=== PATIENT | female | born 1995 | race African-American/Black ===

== ENCOUNTER 2016-09-23 13:37 | Inpatient (IN) | payer OTHER ==
[~2016-09-23] VITALS: Ht 162.6 cm; Wt 96.6 kg
[~2016-09-23 13:37] MED LIST: SERT50 PO; ZYPR10TA PO
[2016-09-23 13:39] VITALS: BP 140/94; PULSE 140; RESP 20; TEMP 97.7; O2SAT 100
--- NOTE | 2016-09-23 14:29 | PD ---
HPI Chief Complaint: GI Complaint Time Seen by Provider: 14:19 Travel History International Travel<30 days: No Contact w/Intl Traveler<30days: No Traveled to known affect area: No History of Present Illness HPI 20-year-old female with history of psychiatric issues according to patient's mother, presents to the ER today because patient's mother states that the patient has had some psychiatric medication changes and has been behaving abnormally at home, disoriented according to patient's mother, and she is worried about leaving the patient at home when she is not there. Patient does not have insight on this issue, states that she has had some episodes of vomiting today because she is in her menses. She states this is not unusual for her. She denies any abdominal pain or any other issues. She denies any suicidal or homicidal ideation. Modifying Factors: None Associated Signs & Symptoms: Abnormal behavior, vomiting Risk Factors: Psychiatric history PFSH Past Medical History Hx Anticoagulant Therapy: No Depression: Yes Cancer: No Cardiovascular Problems: No Chemotherapy: No Cerebrovascular Accident: No Diabetes: No Endocrine: No Genitourinary: No Immune Disorder: No Musculoskeletal: No Neurologic: No Psychiatric: Yes (ER IN [place] WITH PSYCHOSIS) Reproductive: No Respiratory: No LMP: 09/20/16 : 0 Para: 0 Miscarriage: 0 : 0 Social History Alcohol Use: No Tobacco Use: No Substance Use: No Allergies-Medications (Allergen,Severity, Reaction): Coded Allergies: No Known Allergies (Unverified , 09/23/16) Reported Meds & Prescriptions Reported Meds & Active Scripts Active Active Prescriptions or Reported Medications Unobtainable Review of Systems Except as stated in HPI: all other systems reviewed are Neg Physical Exam Narrative GENERAL: Well-nourished, well-developed young female patient in no acute distress. Awake, alert, oriented 3. Speaking with a flat affect. Appear to be responding to internal stimuli currently. SKIN: Warm and dry. HEAD: Normocephalic. EYES: No scleral icterus. No injection or drainage. NECK: Supple, trachea midline. CARDIOVASCULAR: Regular rate and rhythm without murmurs, gallops, or rubs. RESPIRATORY: Breath sounds equal bilaterally. No accessory muscle use. GASTROINTESTINAL: Abdomen soft, non-tender, nondistended. MUSCULOSKELETAL: No cyanosis, or edema. BACK: Nontender without obvious deformity. No CVA tenderness. Data Data Last Documented VS Vital Signs Date Time Temp Pulse Resp B/P Pulse Ox O2 Delivery O2 Flow Rate FiO2 09/23/16 15:55 16 09/23/16 15:19 105 09/23/16 13:39 97.7 140/94 100 Room Air Orders Complete Blood Count With Diff (09/23/16 14:19) Comprehensive Metabolic Panel (09/23/16 14:19) Drug Screen, Random Urine (09/23/16 14:19) Ed Urine Pregnancytest Poc (09/23/16 14:19) Alcohol (Ethanol) (09/23/16 14:19) Psych Screen (09/23/16 14:19) Diet Regular Basic (09/23/16 Dinner) Olanzapine Inj (Zyprexa Inj) (09/23/16 16:45) Diphenhydramine Inj (Benadryl Inj) (09/23/16 16:45) Lorazepam Inj (Ativan Inj) (09/23/16 17:00) Lorazepam Inj (Ativan Inj) (09/23/16 16:48) Diphenhydramine Inj (Benadryl Inj) (09/23/16 16:48) Olanzapine Inj (Zyprexa Inj) (09/23/16 16:48) Labs Laboratory Tests Test 09/23/16 09/23/16 14:25 14:45 White Blood Count 11.1 TH/MM3 Red Blood Count 5.02 MIL/MM3 Hemoglobin 14.0 GM/DL Hematocrit 42.7 % Mean Corpuscular Volume 85.0 FL Mean Corpuscular Hemoglobin 28.0 PG Mean Corpuscular Hemoglobin 32.9 % Concent Red Cell Distribution Width 12.9 % Platelet Count 370 TH/MM3 Mean Platelet Volume 8.0 FL Neutrophils (%) (Auto) 86.9 % Lymphocytes (%) (Auto) 8.1 % Monocytes (%) (Auto) 4.8 % Eosinophils (%) (Auto) 0.0 % Basophils (%) (Auto) 0.2 % Neutrophils # (Auto) 9.7 TH/MM3 Lymphocytes # (Auto) 0.9 TH/MM3 Monocytes # (Auto) 0.5 TH/MM3 Eosinophils # (Auto) 0.0 TH/MM3 Basophils # (Auto) 0.0 TH/MM3 CBC Comment DIFF FINAL Differential Comment Sodium Level 141 MEQ/L Potassium Level 4.0 MEQ/L Chloride Level 110 MEQ/L Carbon Dioxide Level 20.2 MEQ/L Anion Gap 11 MEQ/L Blood Urea Nitrogen 9 MG/DL Creatinine 1.05 MG/DL Estimat Glomerular Filtration 80 ML/MIN Rate Random Glucose 131 MG/DL Calcium Level 9.0 MG/DL Total Bilirubin 0.3 MG/DL Aspartate Amino Transf 26 U/L (AST/SGOT) Alanine Aminotransferase 26 U/L (ALT/SGPT) Alkaline Phosphatase 85 U/L Total Protein 8.7 GM/DL Albumin 4.6 GM/DL Ethyl Alcohol Level LESS THAN 3 MG/DL Urine Opiates Screen NEG Urine Barbiturates Screen NEG Urine Amphetamines Screen NEG Urine Benzodiazepines Screen NEG Urine Cocaine Screen NEG Urine Cannabinoids Screen NEG MDM Medical Decision Making Medical Screen Exam Complete: Yes Emergency Medical Condition: Yes Medical Record Reviewed: Yes Interpretation(s) Laboratory Tests Test 09/23/16 14:25 White Blood Count 11.1 TH/MM3 (4.0-11.0) Neutrophils (%) (Auto) 86.9 % (16.0-70.0) Lymphocytes (%) (Auto) 8.1 % (9.0-44.0) Neutrophils # (Auto) 9.7 TH/MM3 (1.8-7.7) Lymphocytes # (Auto) 0.9 TH/MM3 (1.0-4.8) Chloride Level 110 MEQ/L (98-107) Carbon Dioxide Level 20.2 MEQ/L (21.0-32.0) Creatinine 1.05 MG/DL (0.50-1.00) Estimat Glomerular Filtration 80 ML/MIN (>89) Rate Random Glucose 131 MG/DL (74-106) Total Protein 8.7 GM/DL (6.4-8.2) Differential Diagnosis Abnormal behavior, vomitingrule out metabolic issues versus dehydration versus acute intra-abdominal process, awaiting medical clearance for psychiatric evaluation Narrative Course Patient appears agitated, responding to internal stimuli, and was James acted in the ER. Planning to medically clear patient for further valuation by psych. Patient is not . Abdomen is benign and I do not suspect an acute intra-abdominal process. Lab work did not indicate any significant leukocytosis or metabolic issues. Patient has been medically cleared Diagnosis Primary Impression: Psychotic disorder Scripts Unable to Obtain Active Prescriptions or Reported Meds Disposition: 65 DISC TO PSYCH CARE FACILITY Condition: Stable [place]tharothai,Rewadee MD Sep 23, 2016 14:29
[2016-09-23 15:19] VITALS: PULSE 105
[2016-09-23 15:41] LABS: AUTOMATED NEUTROPHIL # 9.7 TH/MM3 (1.8-7.7); BASOPHIL % 0.2 % (0.0-2.0); HEMATOCRIT 42.7 % (35.0-46.0); HEMO FLAGS DIFF FINAL; LYMPH % 8.1 % (9.0-44.0); LYMPHOCYTE # 0.9 TH/MM3 (1.0-4.8); MEAN CORPUSCULAR HGB CONC 32.9 % (32.0-36.0); MONO % 4.8 % (0.0-8.0); NEUT % 86.9 % (16.0-70.0); PLATELET COUNT 370 TH/MM3 (150-450); RED BLOOD COUNT 5.02 MIL/MM3 (4.00-5.30); RED CELL DISTRIBUTION WIDTH 12.9 % (11.6-17.2); WHITE BLOOD COUNT 11.1 TH/MM3 (4.0-11.0)
[2016-09-23 15:58] LABS: AMPHETAMINE, URINE NEG (NEG); BARBITURATES, URINE NEG (NEG); COCAINE, URINE NEG (NEG)
[2016-09-23 16:04] LABS: ALKALINE PHOSPHATASE 85 U/L (45-117); TOTAL BILIRUBIN ADULT 0.3 MG/DL (0.2-1.0)
[2016-09-23 16:24] LABS: ALT (GPT) 26 U/L (10-53); ANION GAP 11 MEQ/L (5-15); AST (GOT) 26 U/L (15-37); BICARBONATE 20.2 MEQ/L (21.0-32.0); BLOOD UREA NITROGEN 9 MG/DL (7-18); CHLORIDE 110 MEQ/L (98-107); GLOMERULAR FILTRATION RATE 80 ML/MIN (>89); SODIUM (NA) 141 MEQ/L (136-145)
[2016-09-23] MEDS ORDERED: OLANZapine IM 10 MG VIAL IM ONE ×2 (16:45→16:48)
[2016-09-23] MEDS ORDERED: diphenhydrAMINE HCL 50 MG/ML VIAL ONE (16:48)
[2016-09-23] MEDS ORDERED: LORazepam 2 MG/ML VIAL ONE (16:48)
[2016-09-23] MEDS ORDERED: LORazepam 2 MG/ML VIAL IM ONE (17:00)
[2016-09-23 18:00] VITALS: BP 114/75; PULSE 120; RESP 18; TEMP 97.6; O2SAT 100
[2016-09-23 22:19] VITALS: BP 130/67; PULSE 112; RESP 16; O2SAT 98
[2016-09-24] MEDS ORDERED: OLANZapine IM 10 MG VIAL IM ONE (00:30)
[2016-09-24] MEDS: diphenhydrAMINE HCL 50 MG/ML VIAL IM PRN (00:38)
[2016-09-24 03:05] VITALS: BP 124/70; PULSE 96; RESP 18; O2SAT 100
[2016-09-24 06:21] VITALS: BP 108/51; PULSE 99; RESP 18; O2SAT 99
[2016-09-24 10:34] VITALS: BP 118/64; PULSE 75; RESP 18; O2SAT 99
--- NOTE | 2016-09-24 11:05 | PD ---
History of Present Illness Chief Complaint: GI Complaint Time Seen by Provider: 11:00 Travel History International Travel<30 Days: No Contact w/Intl Traveler<30days: No Known affected area: No Legal Status Legal Status: Seakeeper Act History of Present Illness: History of Present Illness HPI 20-year-old female with history of psychiatric history of psychosis, possibly bipolar disorder or schizophrenia who is brought to ED by her mother for psychiatric evaluation. According to patient's mother, the patient has had some psychiatric medication changes and has been behaving abnormally at home, disoriented according to patient's mother, and she is worried about leaving the patient at home when she is not there. Patient states that she has had some episodes of vomiting today because she is in her menses. She states this is not unusual for her. Upon arrival to the ED the patient was placed under a BA for agitated behavior towards ED staff. The patient was quickly transferred to J pod as he was agitated and threatening. She required ETO at the time. I saw her at the time and she was lunging towards staff, screaming, insisting that she knew me from the market, hypersexual with male staff, disrobing, She required further medication at 0300 and was medicated w Zyprexa. Patient is seen this morning in J pod. She has intermittent episodes of agitation with screaming loudly. She continues to exhibit hypersexuality and is seen sticking her tongue out at staff. She is speaking in Creole. She is distractible , vigilant with prominent thought blocking. Appears to be internally preoccupied. She seems to target female staff and becomes agitated around female staff. Upon review of EMR she was first seen [place] [facility] [place] . At the time she just came to [place] and was hospitalized in an acute psychotic state. She was under the care of Dr. Champagne. As per his notes her family reported that she had been treated for psychiatric symptoms in [place] but that she was non medication compliant. There is no substance Use and negative toxicology She was evaluated in ED in Jul 2015 for psychiatric complaints but did not require admission at the time. Her last admission was at [facility] in Jul 2015. It is unclear if she has been complying with treatment. I will attempt to have staff who speak Creole talk to her mother for further clinical information. PFSH Past Medical History Hx Anticoagulant Therapy: No Anxiety: Yes Depression: Yes Cancer: No Cardiovascular Problems: No Chemotherapy: No Cerebrovascular Accident: No Diabetes: No Endocrine: No Genitourinary: No Immune Disorder: No Musculoskeletal: No Neurologic: No Psychiatric: Yes (ER IN [place] WITH PSYCHOSIS) Reproductive: No Respiratory: No Tetanus Vaccination: < 5 Years Influenza Vaccination: No ?: Unknown LMP: 09/20/16 : 0 Para: 0 Miscarriage: 0 : 0 Past Surgical History Surgical History: No Previous Surgery Psychiatric History Psychiatric History Hx Psychiatric Treatment: [facility] FOR DEPRESSION WITH PSYCHOTIC FEATURES. History of Inpatient Treatment: Yes [place] [place] [facility]) Guns or firearms in home: No Social History Single female. May be living with her mother. Hx Alcohol Use: No Hx Tobacco Use: No Hx Substance Use: No Hx of Substance Use Treatment: No Allergies-Medications (Allergen,Severity, Reaction): Coded Allergies: No Known Allergies (Unverified , 09/23/16) Reported Meds & Prescriptions Reported Meds & Active Scripts Active Active Prescriptions or Reported Medications Unobtainable Review of Systems ROS Limitations: Psychotic Psychiatric: COMPLAINS OF: Hallucinations, Agitation, Delusions Exam Exam Limitations: Combative, Psychotic Alert: Yes [place]: Person Mood: Agitated Affect: Other Speech: Illogical Eye Contact: Fixed Memory Intact: Comment (not tested) Suicidal: Ideation (unable to assess) Insight/Judgement poor. Poor MDM Medical Decision Making Medical Record Reviewed: Yes Assessment/Plan 20 year old female who is under a BA for aggressive behavior while in ED. Patient is psychotic at this time with marked thought blocking, distracted, intermitted agitation. Requires inpatient treatment to maintain safety, stabilize current symptoms and initiate medications. Orders Complete Blood Count With Diff (09/23/16 14:19) Comprehensive Metabolic Panel (09/23/16 14:19) Drug Screen, Random Urine (09/23/16 14:19) Ed Urine Pregnancytest Poc (09/23/16 14:19) Alcohol (Ethanol) (09/23/16 14:19) Psych Screen (09/23/16 14:19) Diet Regular Basic (09/23/16 Dinner) Olanzapine Inj (Zyprexa Inj) (09/23/16 16:45) Diphenhydramine Inj (Benadryl Inj) (09/23/16 16:45) Lorazepam Inj (Ativan Inj) (09/23/16 17:00) Lorazepam Inj (Ativan Inj) (09/23/16 16:48) Diphenhydramine Inj (Benadryl Inj) (09/23/16 16:48) Olanzapine Inj (Zyprexa Inj) (09/23/16 16:48) Olanzapine Inj (Zyprexa Inj) (09/24/16 00:30) Diet Regular Basic (09/24/16 Breakfast) Diet Regular Basic (09/24/16 Lunch) Results Vital Signs Date Time Temp Pulse Resp B/P Pulse Ox O2 Delivery O2 Flow Rate FiO2 09/24/16 10:34 75 18 118/64 99 09/24/16 06:21 99 18 108/51 99 Room Air 09/24/16 03:05 96 18 124/70 100 09/23/16 22:19 112 16 130/67 98 Room Air 09/23/16 18:00 97.6 120 18 114/75 100 Room Air 09/23/16 15:55 16 09/23/16 15:19 105 09/23/16 13:39 97.7 140 20 140/94 100 Room Air Laboratory Tests Test 09/23/16 09/23/16 14:25 14:45 White Blood Count 11.1 Red Blood Count 5.02 Hemoglobin 14.0 Hematocrit 42.7 Mean Corpuscular Volume 85.0 Mean Corpuscular Hemoglobin 28.0 Mean Corpuscular Hemoglobin 32.9 Concent Red Cell Distribution Width 12.9 Platelet Count 370 Mean Platelet Volume 8.0 Neutrophils (%) (Auto) 86.9 Lymphocytes (%) (Auto) 8.1 Monocytes (%) (Auto) 4.8 Eosinophils (%) (Auto) 0.0 Basophils (%) (Auto) 0.2 Neutrophils # (Auto) 9.7 Lymphocytes # (Auto) 0.9 Monocytes # (Auto) 0.5 Eosinophils # (Auto) 0.0 Basophils # (Auto) 0.0 CBC Comment DIFF FINAL Differential Comment Sodium Level 141 Potassium Level 4.0 Chloride Level 110 Carbon Dioxide Level 20.2 Anion Gap 11 Blood Urea Nitrogen 9 Creatinine 1.05 Estimat Glomerular Filtration 80 Rate Random Glucose 131 Calcium Level 9.0 Total Bilirubin 0.3 Aspartate Amino Transf 26 (AST/SGOT) Alanine Aminotransferase 26 (ALT/SGPT) Alkaline Phosphatase 85 Total Protein 8.7 Albumin 4.6 Ethyl Alcohol Level LESS THAN 3 Urine Opiates Screen NEG Urine Barbiturates Screen NEG Urine Amphetamines Screen NEG Urine Benzodiazepines Screen NEG Urine Cocaine Screen NEG Urine Cannabinoids Screen NEG Diagnosis Primary Impression: Psychotic disorder Admitting Information Admitting Physician Requests: Admit Departure Forms: Tests/Procedures Patient Instructions: General Instructions Prescriptions Unable to Obtain Active Prescriptions or Reported Meds Disposition: 65 DISC TO PSYCH CARE FACILITY Condition: Stable Problem Qualifiers Primary Impression: Psychotic disorder Qualified Code: F25.0 - Schizoaffective disorder, bipolar type Debbie Monique Sep 24, 2016 11:05
[2016-09-24] MEDS ORDERED: ALUMINUM/MAGNESIUM/SIMETH 30 ML CUP PO PRN (11:45)
[2016-09-24] MEDS ORDERED: ACETAMINOPHEN 325 MG TAB PO PRN (11:45)
[2016-09-24] MEDS ORDERED: MAGNESIUM HYDROXIDE SUSP 30 ML CUP PO PRN (11:45)
[2016-09-24] MEDS ORDERED: LORazepam 2 MG/ML VIAL IM ONE (12:00)
[2016-09-24 13:27] VITALS: BP 118/64; PULSE 75; RESP 18; O2SAT 99
[2016-09-24 14:08] VITALS: BP 156/75; PULSE 120; RESP 18; TEMP 98.6; O2SAT 99
[2016-09-24 18:22] VITALS: BP 128/83; PULSE 127; RESP 17; TEMP 97.7; O2SAT 99
[2016-09-25] MEDS: diphenhydrAMINE HCL 50 MG/ML VIAL IM PRN (01:40)
[2016-09-25 07:50] LABS: ANION GAP 7 MEQ/L (5-15); BICARBONATE 27.4 MEQ/L (21.0-32.0); BLOOD UREA NITROGEN 8 MG/DL (7-18); CHLORIDE 105 MEQ/L (98-107); GLOMERULAR FILTRATION RATE 89 ML/MIN (>89); HDL CHOLESTEROL 48.5 MG/DL (40.0-60.0); LDL CHOLESTEROL 104 MG/DL (0-99); POTASSIUM 3.4 MEQ/L (3.5-5.1); SODIUM (NA) 139 MEQ/L (136-145)
[2016-09-25] MEDS ORDERED: HALOPERIDOL LACTATE 5 MG/ML AMP IM ONE (13:00)
[2016-09-25] MEDS ORDERED: BENZTROPINE MESYLATE 2 MG/2 ML VIAL IM PRN (13:00)
[2016-09-25] MEDS ORDERED: BENZTROPINE MESYLATE 1 MG TAB PO PRN (13:00)
[2016-09-25] MEDS ORDERED: diphenhydrAMINE HCL 50 MG/ML VIAL IM ONE (13:00)
[2016-09-25] MEDS ORDERED: LORazepam 2 MG/ML VIAL IM ONE (13:00)
[2016-09-25] MEDS ORDERED: LORazepam 2 MG/ML VIAL IM PRN (13:00)
--- NOTE | 2016-09-25 14:00 | MH ---
cc: BRAYDEN HANEY MD DATE OF ADMISSION: 09/24/2016 ADMISSION DIAGNOSES 1. Schizoaffective disorder, bipolar type acute decompensation. LEGAL STATUS The patient is presently involuntary and may not consent for medications or for admission. HISTORY OF PRESENT ILLNESS Ms. Hooks is a 20-year-old -British female with a history of psychotic disorder, who presents on a voluntary basis for psychiatric evaluation. The patient was placed under a James Act by the ED physician and evaluated by the psychiatric nurse practitioner who noted that the patient was agitated and threatening and hyper-sexual and required ETOs in the ED. Nurse practitioner recommended admission to the inpatient psychiatric unit. Reviewing the electronic medical record, I note that the patient was admitted here most recently in June of [address] Champagne, during which visit she was stabilized on Invega Sustenna and Seroquel 200 mg at night. The patient was seen and examined with nurse and counselor. Chart reviewed. Case discussed with nursing staff. On my examination today, the patient presents as quite bizarre and oddly related. She is extremely paranoid and refuses to close the door for the duration of the interview. She appears frankly internally stimulated and casts her eyes about during the interview. She is fairly sarcastic and distractible. She is hyper-sexual and makes sexually inappropriate comments to her male nurse. She says "I have a mind and a heart and a soul and will always be in heaven and hell." She is quite discharge focused. When I endeavored to obtain possible source of collateral she gives me her mother's full name and address and she is generally overly detailed in the history that she provides. She concludes the interview by conducting an elaborate ritual in which she places her hands in a prayerful position and bows deeply before stalking out of the room. Psychiatric interview is somewhat limited because of her degree of psychiatric decompensation. Per nursing staff, the patient received Invega Sustenna 234 mg exactly 1 week ago. Please note, per nursing staff based on collateral from the mother. I did myself endeavor to obtain collateral from the patient's mother over the phone. I left voice mail requesting a call back. Patient's mother calls back: She notes that the patient had indeed previously done well with Seroquel/ Sustenna combination but experienced breast growth and galactorrhea from Sustenna. She was subsequently placed on clozapine but had trouble making it for blood draws and also was non-adherent with this medication at times. Mother notes patient was started on Sustenna last Sunday after 4 days of oral Invega and had a rapid psychotic decompensation after the Sustenna was introduced. Nonetheless, given historical good response to Sustenna, mother would like to continue this agent and agrees with re-adding Seroquel. Based on this conversation, I will check a baseline Prolactin and otherwise continue current treatment as ordered. PAST PSYCHIATRIC HISTORY The patient reports that she follows with Dr. Foster (sp?). She is unsure of any previous psychiatric admissions but has the psychiatric admission here under Dr. Champagne. She denies any history of suicide attempts. FAMILY HISTORY The patient is unable to provide because of her degree of psychiatric impairment. CHEMICAL DEPENDENCY HISTORY The patient denies any history of abuse of drugs or alcohol. Toxicology negative. SOCIAL HISTORY When I asked the patient regarding questions about her social history she provides me instead with her social security number. When I clarify, she is able to say that she lives with her mother and is single with no children. She denies any or legal history. She is high school educated but presently does not work and denies any disability income. She denies any access to guns or firearms. PAST MEDICAL HISTORY The patient denies any history of medical issues. MEDICATIONS The patient says that she takes Clozaril at a dose of 1 gram in the morning, although this seems somewhat unlikely. ALLERGIES No known allergies. REVIEW OF SYSTEMS No reported physical complaints but the ROS is quite limited because of the patient's mental state. PHYSICAL EXAMINATION Vital signs: Temperature of 97.7, pulse of 127, respirations 17, blood pressure 128/83, pulse oximetry is 99% on room air. Physical examination was completed in the emergency room by the ER staff and the patient was medically cleared. On my examination today, the patient appears to be in no acute physical distress. No abnormal motor movements noted. Labs reviewed. CBC is significant for a very mild leukocytosis at 11.1. CMP is significant for ongoing hypokalemia at 3.4. Liver and renal function are now intact. Toxicology is negative and alcohol level is undetectable as I said. ED point of test was negative and the quality control checker is past. MENTAL STATUS EXAMINATION The patient is casually dressed. She is fairly well-groomed. She is awake, alert and oriented to person and hospital at least. No hand tremor, dystonia or dyskinesia noted. The patient does have some odd behavior as detailed in history of present illness. Speech is somewhat rambling but within normal limits for rate, tone and volume. Language and fund of knowledge seem average for age. Mood and affect are fairly restricted and dysphoric. Thought process is somewhat disorganized with some loosening of associations. Bizarre and paranoid delusions are present. The patient appears frankly internally stimulated. She denies suicidal or homicidal ideation but it is unclear that she is reliable to contract for safety. Insight and judgment are presently poor. ASSESSMENT/PLAN This is a 20-year-old -British female with psychiatric history as detailed above, who presented voluntarily, now under a James Act, admitted to the inpatient psychiatric unit. On my examination today, the patient presents as floridly psychotic. The patient was apparently started on Invega Sustenna about a week ago. From our own electronic medical records I see that the patient was able to be stabilized on a combination of Invega and Seroquel in the past. Therefore, I think it makes a sense to try to reintroduce Seroquel at this time to stabilize the patient's psychiatric symptomatology. The patient requires psychiatric hospitalization for safety, observation and stabilization. Admit inpatient. Involuntary status. I have completed first opinion. Consult for second opinion. Request health care surrogate and guardian advocate. I have asked the nursing staff to reconfirm the date and dose of the patient's Invega Sustenna. If this was indeed the initial dose of Invega she will therefore require a booster dose. In the meantime, I will add Seroquel at a dose of 100 mg at bedtime. Ativan as needed for anxiety, Benadryl as needed for sleep, Cogentin as needed for any EPS. I will check an EKG on account of her tachycardia. UPDATE: EKG is sinus with QTc 362ms. Vitals every shift. Counselor to see. Disposition planning. ESTIMATED LENGTH OF STAY 7-9 days. Brayden Haney DC/TANYA /12:58 PM /1:27 PM GILA
[2016-09-25] MEDS ORDERED: POTASSIUM CHLORIDE 10 MEQ CONTROLLED RELEASE TAB PO ONE (17:00)
[2016-09-25] MEDS ORDERED: QUEtiapine FUMARATE 100 MG TAB PO SCH (21:00)
[2016-09-26 05:36] VITALS: BP 126/86; PULSE 128; RESP 18; TEMP 97.3; O2SAT 98
[2016-09-26 08:01] LABS: BICARBONATE 27.3 MEQ/L (21.0-32.0); MAGNESIUM 2.1 MG/DL (1.5-2.5); POTASSIUM 3.8 MEQ/L (3.5-5.1)
--- NOTE | 2016-09-26 08:36 | PD.CONS ---
Provisional Diagnosis Admission Date Sep 24, 2016 at 11:56 [place] I. Schizoaffective disorder bipolar type f 25.0 History of Present Illness Service Psychiatry Consult Requested By Primary Care Physician Unknown HPI Patient is a 20-year-old Afro-Brazilian female admitted to Dr. olivier service under the James act his H&P is reviewed and agreed with. Patient seen by me in her room with nurse Darek. Patient is quite flighty manic grandiose and psychotic no significant insight into her disease. Denying illness denying need for medication. Dr. Olivier @first opinion petition supporting James act. I agree. Patient meets criteria for involuntary psychiatric hospitalization under the James act. Thus I will cosign second opinion petition supporting James act Past Family Social History Coded Allergies: No Known Allergies (Unverified , 09/23/16) Unable to Obtain Active Prescriptions or Reported Meds Current Medications Medications (Trade) Dose Ordered Sig/Rob Route Start Time Stop Time Status Last Admin (Tylenol) 650 mg Q4H PRN PO 09/24/16 11:45 (Milk Of Magnesia Liq) 30 ml DAILY PRN PO 09/24/16 11:45 (Mag-Al Plus Susp Liq) 30 ml Q6H PRN PO 09/24/16 11:45 (Ativan) 1 mg Q6H PRN PO 09/25/16 13:00 (Ativan Inj) 1 mg Q6H PRN IM 09/25/16 13:00 (Cogentin) 1 mg Q12HR PRN PO 09/25/16 13:00 (Cogentin Inj) 1 mg Q12HR PRN IM 09/25/16 13:00 (Benadryl) 50 mg HS PRN PO 09/25/16 21:00 (SEROquel) 100 mg HS PO 09/25/16 21:00 09/25/16 20:12 Physical Exam Vital Signs Vital Signs Date Time Temp Pulse Resp B/P Pulse Ox O2 Delivery O2 Flow Rate FiO2 09/26/16 05:36 97.3 128 18 126/86 98 09/24/16 13:27 Room Air Mental Status Examination Alert diffusely confused short full figured Afro-Brazilian female distracted to place time and situation appears to be responding to internal stimuli, is guarded both good eye contact Appearance Patient has full permed curly hair Speech: Rapid Orientation: Person Memory: Impaired (describe) Thought Process: Linear Thought Content: Paranoid (mildly) Hallucination Type: None (denies appears to be responding to internal stimuli) Attention and Concentration: Easily Distracted Suicidal Ideation: No (denies) Previous Suicide Attempts: No Homicidal Ideation: No (denies) Previous Homicide Attempts: No Insight: Poor Judgement: Poor Affect: Other (slight increase range and intensity) Mood: Manic Assessment & Plan Problem List: (1) Schizoaffective disorder, bipolar type ICD Code: F25.0 Assessment & Plan Estimated LOS: Sarbjit Garza MD Sep 26, 2016 08:36
--- NOTE | 2016-09-26 09:40 | HHI.PYPN ---
Subjective Remarks Pt seen and examined in treatment team with RN, counselor and OT. Chart reviewed. Case discussed in treatment team. Per nursing staff, patient remains quite bizarre and disinhibited. On my examination today, the patient begins the interview by removing the socks from her feet and placing them on her hands. She insists that we are in [facility]. She spits what appears to be chewed food on the floor and smears it. She appears frankly internally preoccupied and psychotic. She is angry and hostile. She concludes the interview by looking at each member of the treatment team and saying, "If I go to Maia gregg [her mother], I'm gonna kill all of you." No evident sedation or other side effects from medications. I am called from the unit that the patient is growing agitated after our interview, and I have ordered her medicated with Haldol 10mg, Ativan, and Benadryl IM ETO. When I return to the unit later she is calmer but otherwise seems unfazed by these medications. I did put out a call to her outpatient mental health provider and am awaiting a call back. Review of Systems ROS Limitations: Psychotic, Poor Historian Other Complains of nausea and then volitionally spits up (not vomits) on floor as noted above. Objective Alert: Yes [place]: Person, Place Mood: Agitated, Angry, Oppositional Affect: Labile Memory Intact: Comment (unable to assess, psychosis interferes) Hallucinations: Other (appears frankly internally stimulated) Delusions: Yes Delusion Type: Paranoid Suicidal: Ideation (unable to assess. Patient unable to contract for safety.) Homicidal: Ideation (patient threatens treatment team as noted above.) Insight/Judgement Poor Remarks No motoric abnormalities noted. Speech within normal limits for rate, tone and volume. Thought process disorganized. Labs Test 09/26/16 07:13 Sodium Level 141 MEQ/L Potassium Level 3.8 MEQ/L Chloride Level 108 MEQ/L Carbon Dioxide Level 27.3 MEQ/L Anion Gap 6 MEQ/L Blood Urea Nitrogen 8 MG/DL Creatinine 0.87 MG/DL Estimat Glomerular Filtration 99 ML/MIN Rate Random Glucose 94 MG/DL Calcium Level 8.4 MG/DL Magnesium Level 2.1 MG/DL Labs reviewed. Hypokalemia resolved. Magnesium within normal limits. Prolactin pending. Vitals/IOs Vital Signs Date Time Temp Pulse Resp B/P Pulse Ox O2 Delivery O2 Flow Rate FiO2 09/26/16 05:36 97.3 128 18 126/86 98 09/24/16 13:27 Room Air Assessment & Plan Problem List: (1) Schizoaffective disorder, bipolar type ICD Code: F25.0 Assessment & Plan Patient remains decompensated from her psychotic illness to a severe degree. I will titrate her Seroquel at bedtime to target psychosis and for mood stabilization. Once I have confirmed with her outpatient provider that dose and timing of her last Invega Sustenna injection, I will plan to administer the booster dose if appropriate. I will ask the hospitalist to evaluate patient's complaints of nausea. Continue monitoring on the inpatient psychiatric unit. Continue other medications and care as ordered. Justification for Cont. Inpt. Impairment in safety, self-care, reality construction, social function. Medication changes in process. Risk for decompensation in a less restrictive environment. Discharge Planning Pending psychiatric stabilization. Request HC Surrog/Guard Advoc?: Yes Brayden Haney MD Sep 26, 2016 09:39
[2016-09-26] MEDS ORDERED: HALOPERIDOL LACTATE 5 MG/ML AMP IM ONE (10:15)
[2016-09-26] MEDS ORDERED: LORazepam 2 MG/ML VIAL IM ONE (10:15)
[2016-09-26] MEDS ORDERED: diphenhydrAMINE HCL 50 MG/ML VIAL IM ONE (10:15)
[2016-09-26] MEDS ORDERED: diphenhydrAMINE HCL 50 MG/ML VIAL ONE (10:32)
[2016-09-26] MEDS ORDERED: HALOPERIDOL LACTATE 5 MG/ML AMP ONE (10:32)
[2016-09-26 13:25] LABS: HEMOGLOBIN A1a 0.6 %; HEMOGLOBIN A1b 0.7 %; HEMOGLOBIN Ao 87.3 %; HEMOGLOBIN F 0.8 %; HEMOGLOBIN LA1C 1.6 %; HEMOGLOBIN P3 3.2 %
--- NOTE | 2016-09-26 13:33 | EKG ---
Date Performed: 09/25/2016 Time Performed: 13:24:21 PTAGE: 20 years EKG: Sinus rhythm NORMAL ECG NO PREVIOUS TRACING DOCTOR: Tsering Aguilar Interpretating Date/Time 09/26/2016 13:30:11
[2016-09-26] MEDS ORDERED: PALIPERIDONE PALMITATE 156 MG/ML SYRINGE IM ONE (14:30)
--- NOTE | 2016-09-26 15:10 | RADRPT ---
EXAM DATE/TIME: 09/26/2016 14:50 [place] COMPARISON: No previous studies available for comparison. INDICATIONS : Positive TB test. MEDICAL HISTORY : None. SURGICAL HISTORY : None. ENCOUNTER: Initial ACUITY: 1 day PAIN SCORE: 0/10 LOCATION: Bilateral chest FINDINGS: A single view of the chest demonstrates the lungs to be symmetrically aerated without evidence of mas s, infiltrate or effusion. The cardiomediastinal contours are unremarkable. Osseous structures are intact. CONCLUSION: Normal examination for a patient of this age. Chalino Richter MD on September 26, 2016 at 15:09 Board Certified Radiologist. This report was verified electronically.
--- NOTE | 2016-09-26 16:30 | PD.CONS ---
HPI Service [facility] Consult Requested By Psychiatry team Reason for Consult Medical management nausea, positive PPD test Primary Care Physician Unknown Diagnoses: History of Present Illness Patient is a 20-year-old female with primary history of psychiatric issues according to ED notes as told by mother. She has been behaving abnormally at home, disoriented and mother is worried about leaving the patient home alone. Patient is now admitted to inpatient psychiatry unit for further evaluation. Consulted for medical management for nausea, and positive PPD test. Patient seen today. States she had of episode of nausea and vomiting 1 today. States it's associated with her menstrual period. Reports she always have this episode during menstruation. Denies any medical issues. Denies abdominal pain, cramping, . Denies SOB/dyspnea, chest pain, palpitations, headache, dizziness, fevers, chills, dysuria, hematuria. Patient's positive PPD tests according to PCPs office supposed to start INH treatment 2 days ago. Review of Systems Other Negative except for what is noted on history of present illness. Past Family Social History Allergies: Coded Allergies: No Known Allergies (Unverified , 09/23/16) Past Medical History None Past Surgical History None Reported Medications None Active Ordered Medications Current Medications Medications (Trade) Dose Ordered Sig/Rob Route Start Time Stop Time Status Last Admin (Tylenol) 650 mg Q4H PRN PO 09/24/16 11:45 (Milk Of Magnesia Liq) 30 ml DAILY PRN PO 09/24/16 11:45 (Mag-Al Plus Susp Liq) 30 ml Q6H PRN PO 09/24/16 11:45 (Ativan) 1 mg Q6H PRN PO 09/25/16 13:00 (Ativan Inj) 1 mg Q6H PRN IM 09/25/16 13:00 (Cogentin) 1 mg Q12HR PRN PO 09/25/16 13:00 (Cogentin Inj) 1 mg Q12HR PRN IM 09/25/16 13:00 (Benadryl) 50 mg HS PRN PO 09/25/16 21:00 (SEROquel) 200 mg HS PO 09/26/16 21:00 (Isoniazid) 300 mg DAILY PO 09/27/16 09:00 Family History None reported Social History Denies alcohol use Denies tobacco use Denies illicit drug use Physical Exam Vital Signs Vital Signs Date Time Temp Pulse Resp B/P Pulse Ox O2 Delivery O2 Flow Rate FiO2 09/26/16 05:36 97.3 128 18 126/86 98 Physical Exam GENERAL: This is a well-nourished, well-developed patient, in no apparent distress. SKIN: No rashes, ecchymoses or lesions. Cool and dry. HEAD: Atraumatic. Normocephalic. No temporal or scalp tenderness. EYES: Pupils equal round and reactive. Extraocular motions intact. No scleral icterus. No injection or drainage. ENT: Nose without bleeding. Throat without erythema. Uvula midline. Airway patent. NECK: Trachea midline. No JVD or lymphadenopathy. Supple, nontender, no meningeal signs. CARDIOVASCULAR: Regular rate and rhythm without murmurs, gallops, or rubs. RESPIRATORY: Clear to auscultation. Breath sounds equal bilaterally. No wheezes , rales, or rhonchi. GASTROINTESTINAL: Abdomen soft, non-tender, nondistended. No hepato-splenomegaly , or palpable masses. No guarding. MUSCULOSKELETAL: Extremities without clubbing, cyanosis, or edema. No joint tenderness, effusion, or edema noted. No calf tenderness. Negative Homans sign bilaterally. NEUROLOGICAL: Awake and alert. Anxious. Motor and sensory grossly within normal limits. Normal speech. 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 She is now admitted to inpatient psychiatry unit for further evaluation. Consulted for medical management. Psychotic disorder, schizoaffective disorder - managed by psychiatry team Positive PPD test - patient is supposed to be on INH treatment. Check tests, LFTs, chest x-ray. - CXR Normal examination for patient age - Restart INH treatment if test is negative, continue with monitoring of LFTs while on medication qmonthly to be followed by PCP. Nausea/vomiting - chronic secondary to menstrual period. Maybe med related - Zofran when necessary Thank you for this consultation. We will follow patient with you. Written by Smiley Salazar, acting as scribe for Dr. Norris on 09/26/16 at 15: 49. The documentation accurately reflects the work performed [id number] by me on at 21:54. Code Status Full code Discussed Condition With Discussed with patient, RN Problem Qualifiers (1) Psychotic disorder: Qualified Code: F25.0 - Schizoaffective disorder, bipolar type Smiley Prince Sep 26, 2016 16:08 Marc Norris MD Sep 26, 2016 21:54
[2016-09-26] MEDS ORDERED: ONDANSETRON ODT 4 MG TAB PO PRN (17:00)
[2016-09-26 20:00] VITALS: BP 116/74; PULSE 121; RESP 20; TEMP 96.3; O2SAT 99
[2016-09-26] MEDS: diphenhydrAMINE HCL 50 MG CAP PO PRN (21:40)
[2016-09-26] MEDS: QUEtiapine FUMARATE 100 MG TAB PO SCH (21:40)
[2016-09-27 06:39] VITALS: BP 123/62; PULSE 75; RESP 16; TEMP 98.3; O2SAT 99
[2016-09-27 07:45] LABS: AUTOMATED NEUTROPHIL # 2.7 TH/MM3 (1.8-7.7); BASOPHIL % 0.8 % (0.0-2.0); EOSINOPHIL # 0.1 TH/MM3 (0-0.4); EOSINOPHIL % 1.9 % (0.0-4.0); HEMATOCRIT 37.6 % (35.0-46.0); HEMO FLAGS DIFF FINAL; LYMPH % 46.5 % (9.0-44.0); LYMPHOCYTE # 2.9 TH/MM3 (1.0-4.8); MEAN CELL VOLUME 85.2 FL (80.0-100.0); MEAN CORPUSCULAR HEMOGLOBIN 27.9 PG (27.0-34.0); MEAN CORPUSCULAR HGB CONC 32.7 % (32.0-36.0); MONO % 7.6 % (0.0-8.0); NEUT % 43.2 % (16.0-70.0); PLATELET COUNT 295 TH/MM3 (150-450); RED BLOOD COUNT 4.41 MIL/MM3 (4.00-5.30); RED CELL DISTRIBUTION WIDTH 12.5 % (11.6-17.2); WHITE BLOOD COUNT 6.2 TH/MM3 (4.0-11.0)
[2016-09-27 08:17] LABS: ALT (GPT) 15 U/L (10-53); ANION GAP 7 MEQ/L (5-15); AST (GOT) 9 U/L (15-37); BICARBONATE 26.5 MEQ/L (21.0-32.0); BLOOD UREA NITROGEN 9 MG/DL (7-18); CHLORIDE 109 MEQ/L (98-107); GLOMERULAR FILTRATION RATE 94 ML/MIN (>89); MAGNESIUM 2.1 MG/DL (1.5-2.5); SODIUM (NA) 142 MEQ/L (136-145)
[2016-09-27 08:20] LABS: ALKALINE PHOSPHATASE 71 U/L (45-117); BETA HCG QUANT LESS THAN 1 MIU/ML (0-5); TOTAL BILIRUBIN ADULT 0.5 MG/DL (0.2-1.0)
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
--- NOTE | 2016-09-27 14:26 | HHI.PR ---
Subjective Remarks Follow-up visit positive PPD for INH treatment, nausea, elevated prolactin. Patient seen today. States she is doing okay. Requesting to go home. Reports having regular menstrual cycle every month, lasting for 5 days. Denies irregular menstrual cycle, intermenstrual bleeding, heavy menstrual bleeding. Denies pain and discomfort. Denies SOB/ dyspnea. Denies chest pain, palpitations, headaches, dizziness. Denies fevers, chills, n/v/d. Objective Vitals Vital Signs Date Time Temp Pulse Resp B/P Pulse Ox O2 Delivery O2 Flow Rate FiO2 09/27/16 06:39 98.3 75 16 123/62 99 09/26/16 20:00 96.3 121 20 116/74 99 Result Diagram: 09/27/16 0718 09/27/16 0718 Imaging Last Impressions Chest X-Ray 09/26/16 0000 Signed Impressions: Service Date/Time: Monday, September 26, 2016 14:50 - CONCLUSION: Normal examination for a patient of this age. Chalino Richter MD Objective Remarks GENERAL: This is a well-nourished, well-developed patient, in no apparent distress. SKIN: No rashes, ecchymoses or lesions. Cool and dry. HEAD: Atraumatic. Normocephalic. No temporal or scalp tenderness. EYES: Pupils equal round and reactive. Extraocular motions intact. No scleral icterus. No injection or drainage. ENT: Nose without bleeding. Throat without erythema. Uvula midline. Airway patent. NECK: Trachea midline. No JVD or lymphadenopathy. Supple, nontender, no meningeal signs. CARDIOVASCULAR: Regular rate and rhythm without murmurs, gallops, or rubs. RESPIRATORY: Clear to auscultation. Breath sounds equal bilaterally. No wheezes , rales, or rhonchi. GASTROINTESTINAL: Abdomen soft, non-tender, nondistended. No hepato-splenomegaly , or palpable masses. No guarding. MUSCULOSKELETAL: Extremities without clubbing, cyanosis, or edema. No joint tenderness, effusion, or edema noted. No calf tenderness. Negative Homans sign bilaterally. NEUROLOGICAL: Awake and alert. Anxious. Motor and sensory grossly within normal limits. Normal speech. A/P Problem List: (1) Psychotic disorder ICD Code: F29 Status: Acute (2) Schizoaffective disorder, bipolar type ICD Code: F25.0 Status: Acute (3) PPD positive ICD Code: R76.11 Status: Acute Assessment and Plan Patient is a 20-year-old female with history of psychiatric disorder. She is now admitted to inpatient psychiatry unit for further evaluation. Consulted for medical management. Psychotic disorder, schizoaffective disorder - managed by psychiatry team Positive PPD test - patient is supposed to be on INH treatment. Check tests, LFT, chest x-ray. - CXR Normal examination for patient age - Restart INH treatment if test is negative, continue with monitoring of LFTs while on medication qmonthly to be followed by PCP. - Patient has been noncompliant in taking the medication INH, supposedly to start last June 2016, when she was found to have positive PPD test. May restart INH treatment for 6 months if patient is compliant. Latest LFTs within normal. She is to follow-up with PCP . Nausea/vomiting - chronic secondary to menstrual period. Maybe med related. - Zofran when necessary - None reported today Elevated prolactin - possibly drug-related use of antipsychotics, or SSRI - Patient has been on paliperidone derivative of risperidone Stable from Hospitalist standpoint. We will sign off. Reconsult as needed. Discuss with patient, nursing, and Dr. King Written by Smiley Salazar, acting as scribe for Dr. Norris on 09/27/16 at 14:45. The documentation accurately reflects the work performed [id number] by me on at 16:24. Problem Qualifiers (1) Psychotic disorder: Qualified Code: F25.0 - Schizoaffective disorder, bipolar type Smiley Prince Sep 27, 2016 14:26 Marc Norris MD Sep 27, 2016 16:25
[2016-09-27] MEDS: LORazepam 1 MG TAB PO PRN (17:46)
[2016-09-27] MEDS: diphenhydrAMINE HCL 50 MG CAP PO PRN (19:33)
[2016-09-27] MEDS: QUEtiapine FUMARATE 100 MG TAB PO SCH (20:29)
[2016-09-27 21:42] VITALS: BP 141/81; PULSE 104; RESP 18; TEMP 97.9; O2SAT 98
[2016-09-28 05:44] VITALS: BP 141/81; PULSE 95; RESP 18; TEMP 99; O2SAT 100
[2016-09-28] MEDS: ISONIAZID 300 MG TAB PO SCH (08:41)
[2016-09-28] MEDS: LORazepam 1 MG TAB PO PRN ×2 (08:41→19:47)
[2016-09-28] MEDS ORDERED: QUEtiapine FUMARATE 25 MG TAB PO SCH (09:00)
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
[2016-09-28 18:07] VITALS: BP 132/69; PULSE 112; RESP 18; TEMP 96.7; O2SAT 99
[2016-09-28] MEDS: diphenhydrAMINE HCL 50 MG CAP PO PRN (19:47)
[2016-09-28] MEDS: QUEtiapine FUMARATE 100 MG TAB PO SCH (19:47)
[2016-09-29 06:10] VITALS: BP 108/60; PULSE 85; RESP 18; TEMP 99.1; O2SAT 100
[2016-09-29] MEDS ORDERED: QUEtiapine FUMARATE 100 MG TAB PO SCH (09:00)
[2016-09-29] MEDS: ISONIAZID 300 MG TAB PO SCH (09:02)
[2016-09-29] MEDS: LORazepam 1 MG TAB PO PRN (09:02)
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
[2016-09-29] MEDS ORDERED: PILL SPLITTER OTHER PRN (12:15)
[2016-09-29] MEDS ORDERED: LORazepam 2 MG/ML VIAL IM PRN (13:00)
[2016-09-29 19:38] VITALS: BP 137/91; PULSE 100; RESP 18; TEMP 97.9
[2016-09-29] MEDS: QUEtiapine FUMARATE 100 MG TAB PO SCH (20:45)
[2016-09-29] MEDS ORDERED: QUEtiapine FUMARATE 200 MG TAB PO SCH (21:00)
[2016-09-30 05:22] VITALS: BP 152/81; PULSE 100; RESP 18; TEMP 98.4; O2SAT 99
[2016-09-30] MEDS: ISONIAZID 300 MG TAB PO SCH (09:00)
[2016-09-30] MEDS: QUEtiapine FUMARATE 100 MG TAB PO SCH ×2 (09:00→20:48)
--- NOTE | 2016-09-30 11:18 | HHI.PYPN ---
Subjective Remarks Pt seen and discussed with staff. She is compliant with medications and tolerating seroquel titration without side effects. She remains preoccupied with discharge but has not been aggressive today. No SI/HI. She is isolative to her room. Objective Alert: Yes [place]: Person, Place Mood: Calm, Oppositional Affect: Flat Memory Intact: Comment (not formally assessed) Hallucinations: Other (Remains int stim) Delusions: Yes Delusion Type: Paranoid Suicidal: Ideation (Unreliable to contract for safety.) Homicidal: Ideation (Engaging in violence on the unit.) Insight/Judgement poor Vitals/IOs Vital Signs Date Time Temp Pulse Resp B/P Pulse Ox O2 Delivery O2 Flow Rate FiO2 09/30/16 05:22 98.4 100 18 152/81 99 Assessment & Plan Problem List: (1) Schizoaffective disorder, bipolar type ICD Code: F25.0 (2) Hyperprolactinemia ICD Code: E22.1 Assessment & Plan Continue current tx plan. Estimated LOS: days Justification for Cont. Inpt. impairment in reality testing, recent aggression Request HC Surrog/Guard Advoc?: Yes Richelle Clayton MD Sep 30, 2016 11:17
[2016-09-30 19:36] VITALS: BP 157/65; PULSE 137; RESP 18; TEMP 96; O2SAT 98
[2016-10-01] MEDS: LORazepam 1 MG TAB PO PRN (03:48)
[2016-10-01 05:16] VITALS: BP 127/93; PULSE 140; RESP 18; TEMP 98.6
[2016-10-01] MEDS: QUEtiapine FUMARATE 100 MG TAB PO SCH ×2 (08:59→20:50)
[2016-10-01] MEDS: ISONIAZID 300 MG TAB PO SCH (08:59)
[2016-10-01 09:34] VITALS: BP 127/93; PULSE 140; RESP 18; TEMP 98.2; O2SAT 100
--- NOTE | 2016-10-01 13:49 | HHI.PYPN ---
Subjective Remarks Pt seen and discussed with staff. Staff report that has been disorganized and confused. Pt states that she will be 20 on tomorrow's birthday instead of 21. "I 'm 20 and I'll turn 20 tomorrow." She is compliant with medications and denies side effects. Review of Systems Psychiatric: COMPLAINS OF: Confusion, Delusions Objective Alert: Yes [place]: Person, Place Mood: Calm, Oppositional Affect: Flat Memory Intact: Comment (not formally assessed) Hallucinations: Other (Remains int stim) Delusions: Yes Delusion Type: Paranoid Suicidal: Ideation (Unreliable to contract for safety.) Homicidal: Ideation (Engaging in violence on the unit.) Insight/Judgement poor Vitals/IOs Vital Signs Date Time Temp Pulse Resp B/P Pulse Ox O2 Delivery O2 Flow Rate FiO2 10/01/16 09:34 98.2 140 18 127/93 100 Assessment & Plan Problem List: (1) Schizoaffective disorder, bipolar type ICD Code: F25.0 (2) Hyperprolactinemia ICD Code: E22.1 Assessment & Plan Continue current tx plan. Estimated LOS: days Justification for Cont. Inpt. impairments in reality construction Request HC Surrog/Guard Advoc?: Yes Richelle lCayton MD Oct 01, 2016 13:49
[2016-10-01 19:17] VITALS: BP 111/62; PULSE 127; RESP 17; TEMP 98.5; O2SAT 95
[2016-10-02 05:54] VITALS: BP 114/73; PULSE 119; RESP 18; TEMP 99.1; O2SAT 99
[2016-10-02] MEDS: ISONIAZID 300 MG TAB PO SCH (09:00)
[2016-10-02] MEDS: QUEtiapine FUMARATE 100 MG TAB PO SCH (09:00)
--- NOTE | 2016-10-02 12:04 | HHI.PYPN ---
Subjective Remarks Patient seen and examined with counselor. Chart reviewed. Case discussed with nursing staff who reports that the patient is somewhat upset to be in the hospital for her birthday but has not been threatening or violent recently. On my examination today, the patient says "I'm doing well. I'm not killing myself or anyone else." She says that today is her birthday and insists on being discharged no later than Sunday because her boyfriend is reportedly throwing her a birthday libertarian. Thought process remains disorganized. No evident side effects from medications. Review of Systems ROS Limitations: Psychotic, Poor Historian Other No somatic complaints today Objective Alert: Yes [place]: Person, Place Mood: Oppositional Affect: Other (inappropriately intense but otherwise little affective range) Memory Intact: Comment (not formally assessed) Hallucinations: Other (internally stimulated) Delusions: Yes Delusion Type: Paranoid Suicidal: Ideation (denies SI) Homicidal: Ideation (denies HI) Insight/Judgement Poor Remarks No motoric abnormalities noted. Thought process still somewhat disorganized. Labs Labs reviewed. No new labs. Vitals/IOs Vital Signs Date Time Temp Pulse Resp B/P Pulse Ox O2 Delivery O2 Flow Rate FiO2 10/02/16 05:54 99.1 119 18 114/73 99 Assessment & Plan Problem List: (1) Schizoaffective disorder, bipolar type ICD Code: F25.0 (2) Hyperprolactinemia ICD Code: E22.1 Assessment & Plan Continue Seroquel titration: 200 mg in the morning and 300 mg at bedtime. This augments Invega Sustenna. Continue other medications and care as ordered. Justification for Cont. Inpt. Impairments in reality testing. Impairments in social functioning. Medication changes in process. Risk for decompensation pending psychiatric stabilization. Discharge Planning Pending psychiatric stabilization Request HC Surrog/Guard Advoc?: Yes Brayden Haney MD Oct 02, 2016 12:04
[2016-10-02] MEDS: QUEtiapine FUMARATE 300 MG TAB PO SCH (20:10)
[2016-10-02] MEDS: LORazepam 1 MG TAB PO PRN (20:10)
[2016-10-03 05:13] VITALS: BP 115/72; PULSE 102; RESP 16; TEMP 98.3; O2SAT 91
[2016-10-03] MEDS: ISONIAZID 300 MG TAB PO SCH (08:19)
[2016-10-03] MEDS ORDERED: QUEtiapine FUMARATE 200 MG TAB PO SCH (09:00)
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
[2016-10-03] MEDS: QUEtiapine FUMARATE 300 MG TAB PO SCH (20:43)
[2016-10-03 21:29] VITALS: BP 104/70; PULSE 125; RESP 18; TEMP 98.4; O2SAT 100
[2016-10-04 06:06] VITALS: BP 139/94; PULSE 85; RESP 17; TEMP 98.3; O2SAT 99
[2016-10-04] MEDS: QUEtiapine FUMARATE 300 MG TAB PO SCH (08:48)
[2016-10-04] MEDS: ISONIAZID 300 MG TAB PO SCH (08:48)
--- NOTE | 2016-10-04 11:40 | HHI.PYPN ---
Subjective Remarks Patient seen and examined with counselor. Chart reviewed. Case discussed with nursing staff who reports patient continues to be internally stimulated. She notes that the patient was dancing somewhat salaciously earlier today but was redirectable. On my examination today, patient presents as intense and somewhat guarded. She is somewhat irritable and insists that she is going to be discharged on Sunday to go stay with her boyfriend. She does provide us with a telephone number for her boyfriend which the counselor has tried to call and connects to a [employer] at which no one has heard of her boyfriend. She denies any SI or HI. She denies any audiovisual hallucinations but appears frankly internally preoccupied. No evident side effects from medications. The patient notes "the meds are fine, the meds are great." Review of Systems ROS Limitations: Psychotic, Poor Historian Other No somatic complaints today. Objective Alert: Yes [place]: Person, Place Mood: Oppositional Affect: Other (Interpersonally intense) Memory Intact: Comment (Not formally assessed) Hallucinations: Other (Internally preoccupied but denies AVH) Delusions: Yes Delusion Type: Paranoid Suicidal: Ideation (Denies SI ) Homicidal: Ideation (Denies HI) Insight/Judgement Poor Remarks No motoric abnormalities noted. Labs Labs reviewed. No new labs. Vitals/IOs Vital Signs Date Time Temp Pulse Resp B/P Pulse Ox O2 Delivery O2 Flow Rate FiO2 10/04/16 06:06 98.3 85 17 139/94 99 Assessment & Plan Problem List: (1) Schizoaffective disorder, bipolar type ICD Code: F25.0 (2) Hyperprolactinemia ICD Code: E22.1 Assessment & Plan Titrate Seroquel to 300/400mg to target psychosis, augmenting Invega Sustenna. Continue other medications and care as ordered. Patient is calmer now, and I will try to see if we can obtain MRI brain for hyperprolactinemia. Justification for Cont. Inpt. Impairments in reality construction. Impairments in social functioning. Medication changes. Risk for decompensation in a lower level of care. Discharge Planning Pending psychiatric stabilization. Request HC Surrog/Guard Advoc?: Yes Brayden Haney MD Oct 04, 2016 11:40
[2016-10-04 19:24] VITALS: BP 120/65; PULSE 115; RESP 18; TEMP 98.9; O2SAT 97
[2016-10-04] MEDS: QUEtiapine FUMARATE 200 MG TAB PO SCH (20:30)
[2016-10-05 06:18] VITALS: BP 121/73; PULSE 113; RESP 18; TEMP 97.6
[2016-10-05] MEDS: ISONIAZID 300 MG TAB PO SCH (08:59)
[2016-10-05] MEDS: QUEtiapine FUMARATE 300 MG TAB PO SCH (08:59)
[2016-10-05] MEDS: LORazepam 1 MG TAB PO PRN (09:00)
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
[2016-10-05] MEDS ORDERED: GADODIAMIDE PF 287 MG/ML 5 ML VIAL (for RAD MRI) IV ONE (14:12)
--- NOTE | 2016-10-05 15:26 | RADRPT ---
EXAM DATE/TIME: 10/05/2016 14:12 [facility] COMPARISON: No previous studies available for comparison. INDICATIONS : Pituitary adenoma. CONTRAST: 18 cc Omniscan (gadodiamide) IV MEDICAL HISTORY : None. SURGICAL HISTORY : None. ENCOUNTER: Initial ACUITY: 1 day PAIN SCORE: 0/10 LOCATION: Head. TECHNIQUE: Multiplanar, multisequence MRI of the brain was performed both prior to and following the administrat ion of paramagnetic contrast. FINDINGS: CEREBRUM: The ventricles are normal for age. No evidence of midline shift, mass lesion, hemorrhage or acute in farction. No extraaxial fluid collections are seen. The pituitary gland and suprasellar cistern are normal in configuration. WHITE MATTER: No significant signal abnormalities are seen in the white matter. POSTERIOR FOSSA: The cerebellum and brainstem are intact. The 4th ventricle is midline. The cerebellopontine angle is unremarkable. The cerebellar tonsils are normal in position. DIFFUSION IMAGING: No focal areas of restricted diffusion are seen. No evidence of acute infarction. EXTRACRANIAL: The visualized portions of the orbits and paranasal sinuses are unremarkable. POST-CONTRAST: No abnormal areas of parenchymal or dural enhancement. No evidence of blood-brain barrier breakdown. CONCLUSION: No evidence of pituitary mass. Unremarkable MRI of the brain with and without contras t. Vladimir Lockhart MD on October 05, 2016 at 15:20 Board Certified Radiologist. This report was verified electronically.
[2016-10-05 18:00] VITALS: PULSE 116
[2016-10-05] MEDS: QUEtiapine FUMARATE 200 MG TAB PO SCH (22:14)
[2016-10-06 06:15] VITALS: BP 128/76; PULSE 100; RESP 18; TEMP 98.6; O2SAT 96
[2016-10-06] MEDS: QUEtiapine FUMARATE 200 MG TAB PO SCH ×2 (09:11→21:26)
[2016-10-06] MEDS: ISONIAZID 300 MG TAB PO SCH (09:11)
[2016-10-06] MEDS: LORazepam 1 MG TAB PO PRN ×2 (09:13→21:26)
--- NOTE | 2016-10-06 12:11 | HHI.PYPN ---
Subjective Remarks Patient seen and examined with counselor. Chart reviewed. Case discussed with nursing staff who reports patient remains quite paranoid. Nursing staff also reports that patient's pulse has been running high and was noted to be into the 130s overnight. Patient required Ativan PRN this morning for anxiety. On my examination today, patient perseverates on leaving the hospital today. However , she remains quite watchful and paranoid and when I explain that she must remain in the hospital for more stabilization, she becomes quite upset. Affect is labile. She demands that she be discharged with her boyfriend. Her insight into her mental illness is poor, and I fear that her judgement generally and with respect to disposition in particular is likewise poor. She denies side effects from medications. Review of Systems ROS Limitations: Psychotic, Poor Historian Other No somatic complaints today. Objective Alert: Yes [place]: Person, Place Mood: Agitated, Anxious Affect: Labile Memory Intact: Comment (Not formally assessed) Hallucinations: Other (Remains int stim) Delusions: Yes Delusion Type: Paranoid Suicidal: Ideation (No suicidal ideation) Homicidal: Ideation (Somewhat threatening when told she is not being discharged.) Insight/Judgement Poor Remarks Thought process perseverative. Speech angry. No motoric abnormalities noted. Labs Labs reviewed. No new labs. Vitals/IOs Vital Signs Date Time Temp Pulse Resp B/P Pulse Ox O2 Delivery O2 Flow Rate FiO2 10/06/16 06:15 98.6 100 18 128/76 96 Assessment & Plan Problem List: (1) Schizoaffective disorder, bipolar type ICD Code: F25.0 (2) Hyperprolactinemia ICD Code: E22.1 Assessment & Plan Patient's schizoaffective disorder remains too decompensated for safe discharge at this time. She is on a maximal dose of Seroquel augmenting Invega Sustenna. Although we can anticipate some additional antipsychotic action from this agent in the coming days, patient remains in need of additional mood stabilization. Renal function and TSH are wnl. I will augment with lithium and plan to check a level after the weekend. Check an EKG and consult the hospitalist for tachycardia. Continue to monitor on the unit. Continue other medications and care as ordered. Justification for Cont. Inpt. Impairments in reality construction. Impairments in social function. Complicating conditions. Medication changes in process. High risk for decompensation in a lower level of care. Discharge Planning Pending psychiatric stabilization Request HC Surrog/Guard Advoc?: Yes Brayden Haney MD Oct 06, 2016 12:11
[2016-10-06 19:56] VITALS: BP 129/54; PULSE 99; RESP 20; TEMP 99.5; O2SAT 100
[2016-10-06] MEDS: LITHIUM CARBONATE 300 MG CAP PO SCH (21:26)
[2016-10-07 06:16] VITALS: BP 103/67; PULSE 78; RESP 16; TEMP 97.6; O2SAT 96
[2016-10-07] MEDS: QUEtiapine FUMARATE 200 MG TAB PO SCH ×2 (09:00→21:21)
[2016-10-07] MEDS: LITHIUM CARBONATE 300 MG CAP PO SCH ×2 (09:00→21:21)
[2016-10-07] MEDS: ISONIAZID 300 MG TAB PO SCH (09:00)
--- NOTE | 2016-10-07 15:39 | HHI.PR ---
Subjective Remarks Follow-up reconsult for tachycardia: patient seen today, resting in bed with covers over her head. Patient states, "I told you all my heart is fine, " and refuses to be examined or answer questions Objective Vitals Vital Signs Date Time Temp Pulse Resp B/P Pulse Ox O2 Delivery O2 Flow Rate FiO2 10/07/16 06:16 97.6 78 16 103/67 96 10/06/16 19:56 99.5 99 20 129/54 100 Imaging Last Impressions Brain MRI 10/05/16 0000 Signed Impressions: Service Date/Time: September 14:12 - CONCLUSION: No evidence of pituitary mass. Unremarkable MRI of the brain with and without contrast. Vladimir Lockhart MD Chest X-Ray 09/26/16 0000 Signed Impressions: Service Date/Time: Monday, September 26, 2016 14:50 - CONCLUSION: Normal examination for a patient of this age. Chalino Richter MD Objective Remarks GENERAL: This is a obese, well-developed patient, in no apparent distress. SKIN: No rashes, ecchymoses or lesions. Cool and dry. HEAD: Atraumatic. Normocephalic. No temporal or scalp tenderness. EYES: Extraocular motions intact. No scleral icterus. No injection or drainage. ENT: Nose without bleeding. NECK: Trachea midline. No JVD MUSCULOSKELETAL: moves all four extremities spontaneously NEUROLOGICAL: No focal defect appreciated Normal speech. 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 She is now admitted to inpatient psychiatry unit for further evaluation. Consulted for tachycardia Psychotic disorder, schizoaffective disorder - managed by psychiatry team Elevated prolactin - possibly drug-related use of antipsychotics, or SSRI Patient has been on paliperidone derivative of risperidone Primary team ordered MRI which reveals: No evidence of pituitary mass. Unremarkable MRI of the brain with and without contrast. Tachycardia- resolved patient refusing EKG Per vital signs record patient HR this AM 78 bpm Or possibly related to anxiety as this has resolved with adjustment of antipsychotic medications and Ativan Appears the tachycardia has resolved- will sign off if patient's condition changes or further assistance is needed please reconsult Discuss with patient, nursing, and Dr. Pool Attending Statement Patient seen and examined on date of service. Agree with assessment and plan. Problem Qualifiers (1) Psychotic disorder: Qualified Code: F25.0 - Schizoaffective disorder, bipolar type Mara Gould Oct 07, 2016 15:39 Ford Pool MD Oct 16, 2016 14:11
--- NOTE | 2016-10-07 16:46 | HHI.PYPN ---
Subjective Remarks Patient was seen and case discussed with nursing. Per nursing she spends a lot of time in her room and is compliant with medications. Behaving relatively well on the unit. My interview, patient is rude, irritable, and refuses the interview. She says that she is eating and I need to learn some manners. Would not answer further questions. Objective Alert: Yes [place]: Person, Place Mood: Agitated, Anxious Affect: Labile Memory Intact: Comment (Not formally assessed) Hallucinations: Other (Remains int stim) Delusions: Yes Delusion Type: Paranoid Suicidal: Ideation (No suicidal ideation) Homicidal: Ideation (Somewhat threatening when told she is not being discharged.) Insight/Judgement Poor Vitals/IOs Vital Signs Date Time Temp Pulse Resp B/P Pulse Ox O2 Delivery O2 Flow Rate FiO2 10/07/16 06:16 97.6 78 16 103/67 96 Assessment & Plan Problem List: (1) Schizoaffective disorder, bipolar type ICD Code: F25.0 (2) Hyperprolactinemia ICD Code: E22.1 Assessment & Plan Continue current treatment plan Justification for Cont. Inpt. Patient will decompensate in a less restrictive setting Request HC Surrog/Guard Advoc?: Yes Nelson Walters DO Oct 07, 2016 16:46
[2016-10-07 19:36] VITALS: BP 142/63; PULSE 110; RESP 16; TEMP 98.6; O2SAT 100
[2016-10-08 05:46] VITALS: BP 136/91; PULSE 100; RESP 18; TEMP 98.4; O2SAT 99
[2016-10-08] MEDS: QUEtiapine FUMARATE 200 MG TAB PO SCH ×2 (09:49→20:59)
[2016-10-08] MEDS: LITHIUM CARBONATE 300 MG CAP PO SCH ×2 (09:50→20:59)
[2016-10-08] MEDS: LORazepam 1 MG TAB PO PRN ×2 (09:50→20:59)
[2016-10-08] MEDS: ISONIAZID 300 MG TAB PO SCH (09:50)
--- NOTE | 2016-10-08 15:03 | HHI.PYPN ---
Subjective Remarks Patient was seen and case discussed with nursing. Patient refused the interview yesterday and remains very oppositional today. She purposely speaks in a low voice so I cannot hear her answers. Per nursing she has been entitled , spitting out the pills and demanding of different drink with those pills and then taking them. Patient was reminded that purposeful opposition to to staff would not help her mental health treatment. Objective Alert: Yes [place]: Person, Place Mood: Agitated, Anxious Affect: Labile Memory Intact: Comment (Not formally assessed) Hallucinations: Other (Remains int stim) Delusions: Yes Delusion Type: Paranoid Suicidal: Ideation (No suicidal ideation) Homicidal: Ideation (Somewhat threatening when told she is not being discharged.) Insight/Judgement Poor Vitals/IOs Vital Signs Date Time Temp Pulse Resp B/P Pulse Ox O2 Delivery O2 Flow Rate FiO2 10/08/16 05:46 98.4 100 18 136/91 99 Assessment & Plan Problem List: (1) Schizoaffective disorder, bipolar type ICD Code: F25.0 (2) Hyperprolactinemia ICD Code: E22.1 Assessment & Plan Continue current treatment plan Justification for Cont. Inpt. Patient will decompensate in a less restrictive setting Request HC Surrog/Guard Advoc?: Yes Nelson Walters DO Oct 08, 2016 15:03
[2016-10-08 19:39] VITALS: BP 123/69; PULSE 125; RESP 18; TEMP 98.4; O2SAT 100
[2016-10-08] MEDS: diphenhydrAMINE HCL 50 MG CAP PO PRN (20:59)
[2016-10-09 05:34] VITALS: BP 118/75; PULSE 83; RESP 18; TEMP 97.9; O2SAT 100
[2016-10-09] MEDS: ISONIAZID 300 MG TAB PO SCH (09:06)
[2016-10-09] MEDS: QUEtiapine FUMARATE 200 MG TAB PO SCH ×2 (09:06→21:14)
[2016-10-09] MEDS: LITHIUM CARBONATE 300 MG CAP PO SCH ×2 (09:06→17:22)
[2016-10-09 09:42] LABS: BICARBONATE 28.1 MEQ/L (21.0-32.0); POTASSIUM 3.7 MEQ/L (3.5-5.1)
--- NOTE | 2016-10-09 14:25 | HHI.PYPN ---
Subjective Remarks Patient seen and examined with counselor and nurse. Chart reviewed. Case discussed with nursing staff who reports patient continues to display some thought blocking and is medication seeking for Ativan. On my examination today , patient is calmer and says "I'm doing great. I'm afraid of society." She now says that he wants to be placed in an assisted living facility. Denies any SI or HI. No AVH. Denies side effects from medications. Review of Systems ROS Limitations: Poor Historian Other No somatic complaints today Objective Alert: Yes [place]: Person, Place Mood: Calm Affect: Blunted Memory Intact: Comment (not assessed today) Hallucinations: Other (less internally stimulated) Delusions: No Delusion Type: Other (no delusional material volunteered today) Suicidal: Ideation (No suicidal ideation) Homicidal: Ideation (no homicidal ideation) Insight/Judgement Poor Remarks No abnormal motor movements noted. Thought process somewhat more linear. Labs Test 10/09/16 07:45 Sodium Level 141 MEQ/L Potassium Level 3.7 MEQ/L Chloride Level 106 MEQ/L Carbon Dioxide Level 28.1 MEQ/L Anion Gap 7 MEQ/L Blood Urea Nitrogen 10 MG/DL Creatinine 0.90 MG/DL Estimat Glomerular Filtration 95 ML/MIN Rate Random Glucose 89 MG/DL Calcium Level 8.6 MG/DL [place] Level 0.4 MEQ/L Labs reviewed. [place] level remains on the low side. Renal function intact. Vitals/IOs Vital Signs Date Time Temp Pulse Resp B/P Pulse Ox O2 Delivery O2 Flow Rate FiO2 10/09/16 05:34 97.9 83 18 118/75 100 Assessment & Plan Problem List: (1) Schizoaffective disorder, bipolar type ICD Code: F25.0 (2) Hyperprolactinemia ICD Code: E22.1 Assessment & Plan Titrate lithium to 3 times a day and plan to check a level later this week. Continue other medications as ordered. Continue other care as ordered. Justification for Cont. Inpt. Medication changes in process. Impairments in social function and some lingering impairments in reality testing. Very high risk for decompensation in a less restrictive environment. Discharge Planning Counselor to work on assisted living placement. Request HC Surrog/Guard Advoc?: Yes Brayden Haney MD Oct 09, 2016 14:25
[2016-10-09 17:52] VITALS: BP 109/72; PULSE 107; RESP 18; TEMP 98.8; O2SAT 98
[2016-10-10 05:25] VITALS: BP 134/80; PULSE 123; RESP 18; TEMP 99.1; O2SAT 99
[2016-10-10] MEDS: ISONIAZID 300 MG TAB PO SCH (09:39)
[2016-10-10] MEDS: LORazepam 1 MG TAB PO PRN (09:40)
[2016-10-10] MEDS: LITHIUM CARBONATE 300 MG CAP PO SCH ×3 (09:40→17:08)
[2016-10-10] MEDS: QUEtiapine FUMARATE 200 MG TAB PO SCH ×2 (09:40→20:42)
--- NOTE | 2016-10-10 12:46 | HHI.PYPN ---
Subjective Remarks Patient seen and examined with nurse in counselor in treatment team. Chart reviewed. Case discussed with nursing staff, counselor and occupational therapist. Per nursing staff, the patient reportedly told her that she is "afraid of society." Per occupational therapist, the patient was able to attend one group but was quite contentious and argumentative with other patients. On my examination today, the patient is somewhat irritable and dysphoric. She is waffling about [facility] placement, but there seems to be a playful /volitional component to this, and the patient notes "I hold all the keys." No side effects from medications. Review of Systems ROS Limitations: Poor Historian Other Complains of mild headache. No other somatic complaints. Objective Alert: Yes [place]: Person, Place Mood: Calm Affect: Blunted Memory Intact: Comment (Not formally assessed) Hallucinations: Other (No AVH) Delusions: No Delusion Type: Other (No delusions) Suicidal: Ideation (No SI) Homicidal: Ideation (No HI) Insight/Judgement Poor Remarks No abnormal motor movements noted. Thought process remains a little disorganized. Speech within normal limits for rate, tone and volume. Labs Labs reviewed. No new labs. Vitals/IOs Vital Signs Date Time Temp Pulse Resp B/P Pulse Ox O2 Delivery O2 Flow Rate FiO2 10/10/16 05:25 99.1 123 18 134/80 99 Assessment & Plan Problem List: (1) Schizoaffective disorder, bipolar type ICD Code: F25.0 (2) Hyperprolactinemia ICD Code: E22.1 Assessment & Plan Continue current psychotropics as ordered. Updated lithium level ordered for . Continue other medications and care as ordered. Justification for Cont. Inpt. High risk for decompensation in a lower level of care. Discharge Planning Counselor to work on assisted living placement. Request HC Surrog/Guard Advoc?: Yes Brayden Haney MD Oct 10, 2016 12:46
[2016-10-11] MEDS: LITHIUM CARBONATE 300 MG CAP PO SCH ×3 (09:00→17:48)
[2016-10-11] MEDS: ISONIAZID 300 MG TAB PO SCH (09:00)
[2016-10-11] MEDS: QUEtiapine FUMARATE 200 MG TAB PO SCH ×2 (09:00→21:54)
--- NOTE | 2016-10-11 09:48 | HHI.PYPN ---
Subjective Remarks Patient seen and examined with counselor. Chart reviewed. Case discussed with nursing staff. On my examination today, patient is calm but remains somewhat delusional. She says "somebody threw mice on me and I was itching all night. Someone keeps throwing mice at me because they're gonna ." Some odd associations: counselor asked how patient rested, and patient says "I rested in peace." No SI/HI. No evident side effects from medications. Review of Systems ROS Limitations: Psychotic, Poor Historian Other No somatic complaints currently. Says that she felt somewhat itchy overnight. Objective Alert: Yes [place]: Person, Place, Date Mood: Calm Affect: Blunted (tending towards flat) Memory Intact: Comment (Not formally assessed) Hallucinations: Other (None) Delusions: Yes Delusion Type: Paranoid (bizarre) Suicidal: Ideation (No SI) Homicidal: Ideation (No HI) Insight/Judgement Poor Remarks No abnormal motor movements noted. Thought process somewhat disorganized. Speech a little bit rambling. Labs Labs reviewed. No new labs. Vitals/IOs Vital Signs Date Time Temp Pulse Resp B/P Pulse Ox O2 Delivery O2 Flow Rate FiO2 10/10/16 05:25 99.1 123 18 134/80 99 Assessment & Plan Problem List: (1) Schizoaffective disorder, bipolar type ICD Code: F25.0 (2) Hyperprolactinemia ICD Code: E22.1 Assessment & Plan Patient with ongoing psychotic symptoms despite Invega Sustenna and Seroquel at the top of the dosing range. She is also on lithium for mood stabilization and we will obtain a lithium level tomorrow. She is oriented and there is no evidence of delirium. I think we may need to consider the possibility that patient is not having an adequate response to the Seroquel-Invega combination for her psychosis. I will add a typical antipsychotic, Haldol 2mg BID, with plans to cross taper Seroquel to Haldol if more efficacious. Justification for Cont. Inpt. Ongoing impairments in reality testing. High risk for decompensation in a less restrictive environment. Discharge Planning Placement once psychiatrically stabilized. Request HC Surrog/Guard Advoc?: Yes Brayden Haney MD Oct 11, 2016 09:48
[2016-10-11 20:00] VITALS: BP 124/82; PULSE 120; RESP 18; TEMP 98.4; O2SAT 99
[2016-10-11] MEDS: HALOPERIDOL 2 MG TAB PO SCH (21:54)
[2016-10-11] MEDS: diphenhydrAMINE HCL 50 MG CAP PO PRN (21:55)
[2016-10-12 05:51] VITALS: BP 136/72; PULSE 114; RESP 18; TEMP 98.8; O2SAT 96
[2016-10-12 08:48] LABS: BICARBONATE 24.4 MEQ/L (21.0-32.0); POTASSIUM 3.8 MEQ/L (3.5-5.1)
[2016-10-12] MEDS: QUEtiapine FUMARATE 200 MG TAB PO SCH ×2 (09:00→20:12)
[2016-10-12] MEDS: LITHIUM CARBONATE 300 MG CAP PO SCH ×3 (09:00→16:53)
[2016-10-12] MEDS: HALOPERIDOL 2 MG TAB PO SCH (09:00)
[2016-10-12] MEDS: ISONIAZID 300 MG TAB PO SCH (09:00)
--- NOTE | 2016-10-12 12:09 | HHI.PYPN ---
Subjective Remarks Patient seen and examined with counselor. Chart reviewed. Case discussed with nursing staff who reports that patient has been refusing last several meals. Reviewing the chart it appears patient did accept lunch yesterday and previously had been eating well. On my examination today, the patient is huddled under the covers in her room. She apparently has been incontinent of urine and their puddles of urine on the floor. She rambles about mice some and says, "I am very sick" but refuses to say in what way she feels unwell. I endeavor to ask ROS, but patient is uncooperative. Review of Systems ROS Limitations: Uncooperative Other Refused Objective Alert: Yes [place]: Person, Place Mood: Oppositional Affect: Flat Memory Intact: Comment (Not formally assessed) Hallucinations: Other (No AVH reported) Delusions: Yes Delusion Type: Paranoid (remains bizarre) Suicidal: Ideation (No SI) Homicidal: Ideation (No HI) Insight/Judgement Poor Remarks No abnormal motor movements noted. Labs Test 10/12/16 07:20 Sodium Level 138 MEQ/L Potassium Level 3.8 MEQ/L Chloride Level 105 MEQ/L Carbon Dioxide Level 24.4 MEQ/L Anion Gap 9 MEQ/L Blood Urea Nitrogen 7 MG/DL Creatinine 0.71 MG/DL Estimat Glomerular Filtration 125 ML/MIN Rate Random Glucose 90 MG/DL Calcium Level 8.4 MG/DL [place] Level 0.4 MEQ/L Labs reviewed. [place] level unchanged, despite dose adjustment. Renal function intact. Vitals/IOs Vital Signs Date Time Temp Pulse Resp B/P Pulse Ox O2 Delivery O2 Flow Rate FiO2 10/12/16 05:51 98.8 114 18 136/72 96 Assessment & Plan Problem List: (1) Schizoaffective disorder, bipolar type ICD Code: F25.0 (2) Hyperprolactinemia ICD Code: E22.1 Assessment & Plan Patient seems to be more behaviorally disorganized today and had been somewhat more paranoid yesterday. Unclear what is prompting this reversal, but given the fact that her lithium level did not increase despite increasing the dose I wonder about some degree of covert medication nonadherence although nursing staff assures me they're performing mouth checks. Since psychosis seems more prominent at this time I will titrate patient's Haldol, although there certainly seems to be room to go up on her lithium as well. I will check a urinalysis. Staff to encourage food/fluids. To consider hospitalist consultation. Continue other medications and care as ordered. Justification for Cont. Inpt. Impairments and self-care. Impairments in reality construction. Impairments in social function. Medication changes. High risk for decompensation in a lower level of care. Discharge Planning Placement Request HC Surrog/Guard Advoc?: Yes Brayden Haney MD Oct 12, 2016 12:09
[2016-10-12 19:22] VITALS: BP 129/62; PULSE 116; RESP 18; TEMP 97.9; O2SAT 98
[2016-10-12] MEDS: HALOPERIDOL 5 MG TAB PO SCH (20:12)
[2016-10-13 05:59] VITALS: BP 129/70; PULSE 114; RESP 16; TEMP 98.4
[2016-10-13] MEDS: HALOPERIDOL 5 MG TAB PO SCH ×2 (09:28→20:54)
[2016-10-13] MEDS: LORazepam 1 MG TAB PO PRN (09:28)
[2016-10-13] MEDS: ISONIAZID 300 MG TAB PO SCH (09:28)
[2016-10-13] MEDS: LITHIUM CARBONATE 300 MG CAP PO SCH ×3 (09:28→18:28)
[2016-10-13] MEDS: QUEtiapine FUMARATE 200 MG TAB PO SCH ×2 (09:28→20:54)
--- NOTE | 2016-10-13 10:08 | HHI.PYPN ---
Subjective Remarks Patient seen and examined with counselor. Chart reviewed. Case discussed with nursing staff who reports patient is taking good fluid intake and did eat lunch yesterday. On my examination today, the patient reports that she is "feeling much better." She denies the physical ROS as detailed below. She asks about getting a menu to order some food. She remains somewhat oppositional and paranoid. No complaints of people throwing mice at her. Denies side effects from medications. Review of Systems ROS Limitations: Psychotic, Poor Historian Other Denies any headache, chest pain, shortness of breath, bowel or bladder issues. No other physical complaints. Objective Alert: Yes [place]: Person, Place Mood: Oppositional Affect: Flat (remains fairly flat) Memory Intact: Comment (Not formally assessed) Hallucinations: Other (no audiovisual hallucinations) Delusions: Yes Delusion Type: Paranoid Suicidal: Ideation (No SI) Homicidal: Ideation (no HI) Insight/Judgement poor Remarks Thought process fairly linear. Labs Labs reviewed. No new labs. Patient has not provided sample for urinalysis. Vitals/IOs Vital Signs Date Time Temp Pulse Resp B/P Pulse Ox O2 Delivery O2 Flow Rate FiO2 10/13/16 05:59 98.4 114 16 129/70 10/12/16 19:22 98 Intake and Output 10/12/16 10/12/16 10/13/16 08:00 16:00 00:00 Intake Total 360 ml 480 ml Balance 360 ml 480 ml Assessment & Plan Problem List: (1) Schizoaffective disorder, bipolar type ICD Code: F25.0 (2) Hyperprolactinemia ICD Code: E22.1 Assessment & Plan Patient seems more like her recent baseline today versus yesterday. Continue current psychotropics as ordered. I would still like to obtain the urinalysis as nursing staff says that the urine that was found in her room yesterday was fairly malodorous. Encourage food and fluid intake. Continue other medications and care as ordered. Justification for Cont. Inpt. Impairment in reality construction. Impairment in self-care. Impairment in social function. High risk for decompensation in a lower level of care. Discharge Planning SHELTER placement. State psychiatric hospitalization may be necessary if we cannot stabilize the patient adequately for placement Request HC Surrog/Guard Advoc?: Yes Brayden Haney MD Oct 13, 2016 10:08
[2016-10-13 13:37] LABS: BACTERIA, URINE RARE /hpf; BLOOD, URINE SMALL (NEG); GLUCOSE,URINE NEG (NEG); KETONE, URINE 10 mg/dL (NEG); NITRITE,URINE NEG (NEG); SQUAMOUS EPITHELIAL CELL URINE 2 /hpf (0-5); URINE COLOR YELLOW (YELLW/STRAW)
[2016-10-13 13:45] LABS: COMMENT (UR) CULT NOT INDICATED; CULTURE IF INDICATED CULT NOT INDICATED
[2016-10-13 19:21] VITALS: BP 129/67; PULSE 108; RESP 16; TEMP 98.4; O2SAT 96
[2016-10-14] MEDS: LITHIUM CARBONATE 300 MG CAP PO SCH ×3 (09:12→17:37)
[2016-10-14] MEDS: HALOPERIDOL 5 MG TAB PO SCH ×2 (09:12→20:10)
[2016-10-14] MEDS: QUEtiapine FUMARATE 200 MG TAB PO SCH ×2 (09:13→20:10)
[2016-10-14] MEDS: ISONIAZID 300 MG TAB PO SCH (12:08)
--- NOTE | 2016-10-14 12:49 | HHI.PYPN ---
Subjective Remarks Pt seen and discussed with staff. Pt has been compliant with medications and denies side effects. She remains seclusive to room with minimal interaction with staff or peers on unit. Self-care is poor. She denies SI/HI or AVH. Paranoia persists. Review of Systems Psychiatric: COMPLAINS OF: Delusions Objective Alert: Yes [place]: Person, Place Mood: Oppositional Affect: Flat (remains fairly flat) Memory Intact: Comment (Not formally assessed) Hallucinations: Other (no audiovisual hallucinations) Delusions: Yes Delusion Type: Paranoid Suicidal: Ideation (No SI) Homicidal: Ideation (no HI) Insight/Judgement poor Labs Test 10/13/16 13:10 Urine Color YELLOW Urine Turbidity CLEAR Urine pH 7.0 Urine Specific [place] 1.011 Urine Protein TRACE mg/dL Urine Glucose (UA) NEG mg/dL Urine Ketones 10 mg/dL Urine Occult Blood SMALL Urine Nitrite NEG Urine Bilirubin NEG Urine Urobilinogen 2.0 MG/DL Urine Leukocyte Esterase NEG Urine RBC 1 /hpf Urine WBC 2 /hpf Urine Squamous Epithelial 2 /hpf Cells Urine Bacteria RARE /hpf Microscopic Urinalysis Comment CULT NOT INDICATED Vitals/IOs Vital Signs Date Time Temp Pulse Resp B/P Pulse Ox O2 Delivery O2 Flow Rate FiO2 10/13/16 19:21 98.4 108 16 129/67 96 Intake and Output 10/13/16 10/13/16 10/14/16 08:00 16:00 00:00 Intake Total 360 ml 240 ml 360 ml Balance 360 ml 240 ml 360 ml Assessment & Plan Problem List: (1) Schizoaffective disorder, bipolar type ICD Code: F25.0 (2) Hyperprolactinemia ICD Code: E22.1 Assessment & Plan Continue current tx plan. Continue to encourage behavioral activation and self care. Estimated LOS: days Justification for Cont. Inpt. impairments in reality construction and self-care Request HC Surrog/Guard Advoc?: Yes Richelle Clayton MD Oct 14, 2016 12:49
[2016-10-14 20:05] VITALS: BP 117/73; PULSE 106; RESP 19; TEMP 98.5; O2SAT 99
[2016-10-15 06:15] VITALS: BP 126/59; PULSE 95; RESP 18; TEMP 99.1; O2SAT 98
[2016-10-15] MEDS: ISONIAZID 300 MG TAB PO SCH (08:33)
[2016-10-15] MEDS: HALOPERIDOL 5 MG TAB PO SCH ×2 (08:33→20:35)
[2016-10-15] MEDS: LITHIUM CARBONATE 300 MG CAP PO SCH ×3 (08:33→17:18)
[2016-10-15] MEDS: QUEtiapine FUMARATE 200 MG TAB PO SCH ×2 (08:34→20:35)
--- NOTE | 2016-10-15 14:35 | HHI.PYPN ---
Subjective Remarks Pt seen and discussed with staff. Pt remains paranoid and suspicious, especially concerning medication. She was agitated during interview with RN and MD. No SI/HI. Review of Systems Psychiatric: COMPLAINS OF: Delusions Objective Alert: Yes [place]: Person, Place Mood: Oppositional Affect: Flat (remains fairly flat) Memory Intact: Comment (Not formally assessed) Hallucinations: Other (no audiovisual hallucinations) Delusions: Yes Delusion Type: Paranoid Suicidal: Ideation (No SI) Homicidal: Ideation (no HI) Insight/Judgement poor Vitals/IOs Vital Signs Date Time Temp Pulse Resp B/P Pulse Ox O2 Delivery O2 Flow Rate FiO2 10/15/16 06:15 99.1 95 18 126/59 98 Assessment & Plan Problem List: (1) Schizoaffective disorder, bipolar type ICD Code: F25.0 (2) Hyperprolactinemia ICD Code: E22.1 Assessment & Plan Continue current tx plan. Estimated LOS: days Justification for Cont. Inpt. impairments in reality construction and social functioning Request HC Surrog/Guard Advoc?: Yes Richelle Clayton MD Oct 15, 2016 14:35
[2016-10-15 18:00] VITALS: BP 118/78; PULSE 114; RESP 18; TEMP 98.3; O2SAT 98
[2016-10-16 06:19] VITALS: BP 132/75; PULSE 89; RESP 16; TEMP 98; O2SAT 100
[2016-10-16] MEDS: ISONIAZID 300 MG TAB PO SCH (09:00)
[2016-10-16] MEDS: HALOPERIDOL 5 MG TAB PO SCH ×2 (09:00→20:38)
[2016-10-16] MEDS: QUEtiapine FUMARATE 200 MG TAB PO SCH ×2 (09:00→20:40)
[2016-10-16] MEDS: LITHIUM CARBONATE 300 MG CAP PO SCH ×3 (09:00→17:39)
--- NOTE | 2016-10-16 11:07 | HHI.PYPN ---
Subjective Remarks Patient seen and chart reviewed. Dietitian input noted. I do note that the patient is now eating regular meals. Case discussed with nursing staff. Patient is reportedly socializing more, and in fact I do find her sitting in the day room. On my examination today, the patient presents as somewhat oppositional and is not interested in extended interview. No evident side effects from medications. Review of Systems ROS Limitations: Poor Historian Other No physical complaints voiced. Objective Alert: Yes [place]: Person, Place Mood: Oppositional Affect: Flat Memory Intact: Comment (Not formally assessed) Hallucinations: Other (no AVH voiced) Delusions: No Delusion Type: Other (no miriam delusions voiced. Interview was limited and patient remains somewhat watchful and guarded.) Suicidal: Ideation (No SI) Homicidal: Ideation (no HI) Insight/Judgement Poor Remarks No abnormal motor movements noted Labs Labs reviewed. No new labs. Vitals/IOs Vital Signs Date Time Temp Pulse Resp B/P Pulse Ox O2 Delivery O2 Flow Rate FiO2 10/16/16 06:19 98.0 89 16 132/75 100 Assessment & Plan Problem List: (1) Schizoaffective disorder, bipolar type ICD Code: F25.0 (2) Hyperprolactinemia ICD Code: E22.1 Assessment & Plan Continue current psychiatric medications as ordered. To consider further titration of patient's Haldol. I will check another lithium level to see if patient is closer to the therapeutic range following a dose adjustment last week. Continue other medications and care as ordered. Justification for Cont. Inpt. Impairment in social function. High risk for decompensation. Discharge Planning Possible placement Request HC Surrog/Guard Advoc?: Yes Brayden Haney MD Oct 16, 2016 11:07
[2016-10-16 18:00] VITALS: BP 121/76; PULSE 96; RESP 16; TEMP 99; O2SAT 98
[2016-10-16 19:58] VITALS: BP 121/76; PULSE 96; RESP 16; TEMP 99; O2SAT 98
[2016-10-17 05:56] VITALS: BP 115/70; PULSE 90; RESP 18; TEMP 97.8; O2SAT 99
[2016-10-17] MEDS: QUEtiapine FUMARATE 200 MG TAB PO SCH ×2 (09:15→21:37)
[2016-10-17] MEDS: ISONIAZID 300 MG TAB PO SCH (09:15)
[2016-10-17] MEDS: LITHIUM CARBONATE 300 MG CAP PO SCH ×3 (09:16→17:14)
[2016-10-17] MEDS: HALOPERIDOL 5 MG TAB PO SCH ×2 (09:16→21:37)
--- NOTE | 2016-10-17 12:01 | HHI.PYPN ---
Subjective Remarks Patient seen and examined with counselor and nurse in treatment team. Chart reviewed. Case discussed with counselor, nursing staff and occupational therapist. On my examination today, patient is laying in bed with the covers pulled over her head. She declines to sit up and participate in the interview. She does speak briefly with her head covered. She initially says that she isn 't feeling well physically but declines to say in what way. She doesn't seem particularly distressed and seems to quickly forget these complaints. Affect seems a little brighter today. She remains agreeable to assisted living placement. Denies side effects from medications. Review of Systems ROS Limitations: Psychotic, Poor Historian Other No specific physical complaints today. Objective Alert: Yes [place]: Person, Place Mood: Oppositional Affect: Blunted Memory Intact: Comment (Not formally assessed) Hallucinations: Other (none) Delusions: Yes Delusion Type: Paranoid Suicidal: Ideation (No SI) Homicidal: Ideation (no HI) Insight/Judgement Poor Remarks Speech within normal limits for rate, tone and volume. Labs Test 10/17/16 06:01 [place] Level 0.6 MEQ/L Labs reviewed. [place] level noted. Vitals/IOs Vital Signs Date Time Temp Pulse Resp B/P Pulse Ox O2 Delivery O2 Flow Rate FiO2 10/17/16 05:56 97.8 90 18 115/70 99 Assessment & Plan Problem List: (1) Schizoaffective disorder, bipolar type ICD Code: F25.0 (2) Hyperprolactinemia ICD Code: E22.1 Assessment & Plan Patient's mood seems fairly stable and so I do not think there is necessarily any additional benefit to be derived from titrating her lithium. She remains somewhat paranoid and so we might consider titrating her Haldol but inasmuch as she has some very vague physical complaints today I will hold off at this time and monitor. We do not seem to be making much progress in her core paranoia, in any event, and we may need to consider a significantly different approach with respect to her medications. On the other hand, we seemed to have reached a point of stability and it is possible that she may derive additional benefit from her existing regimen, and so for this reason as well I think it is worth continuing current medications as ordered for now. Continue other medications and care as ordered. Justification for Cont. Inpt. Impairment in reality construction. High risk for decompensation in a lower level of care. Discharge Planning I will initiate a state psychiatric hospital referral. Patient does remain agreeable to assisted living placement, and so this may represent a reasonable alternative if feasible. Counselor to work on this. Request HC Surrog/Guard Advoc?: Yes Brayden Haney MD Oct 17, 2016 12:01
[2016-10-17 20:05] VITALS: BP 141/67; PULSE 109; RESP 18; TEMP 98.4; O2SAT 99
[2016-10-18 05:55] VITALS: BP 118/61; PULSE 86; RESP 18; TEMP 98; O2SAT 98
[2016-10-18] MEDS: ISONIAZID 300 MG TAB PO SCH (09:06)
[2016-10-18] MEDS: QUEtiapine FUMARATE 200 MG TAB PO SCH ×2 (09:06→20:29)
[2016-10-18] MEDS: LITHIUM CARBONATE 300 MG CAP PO SCH ×3 (09:06→17:47)
[2016-10-18] MEDS: HALOPERIDOL 5 MG TAB PO SCH ×2 (09:06→20:28)
[2016-10-18] MEDS: LORazepam 1 MG TAB PO PRN (09:07)
--- NOTE | 2016-10-18 15:02 | HHI.PYPN ---
Subjective Remarks Patient seen and examined with counselor. Chart reviewed. Case discussed with nursing staff. On my examination today, patient is more pleasant and interactive. She says that she is "just going to stay here until I can get a benefit [place]." She denies any SI or AVH. Denies any side effects from medications. Says that she feels better from a physical standpoint and has no somatic complaints at this time. Review of Systems ROS Limitations: Poor Historian Other No physical complaints today Objective Alert: Yes [place]: Person, Place Mood: Calm Affect: Euthymic Memory Intact: Comment (Not formally assessed) Hallucinations: Other (no AVH) Delusions: No Delusion Type: Other (no delusions) Suicidal: Ideation (No SI) Homicidal: Ideation (no HI) Insight/Judgement Poor Remarks Thought process linear. Labs Labs reviewed. Vitals/IOs Vital Signs Date Time Temp Pulse Resp B/P Pulse Ox O2 Delivery O2 Flow Rate FiO2 10/18/16 05:55 98.0 86 18 118/61 98 Assessment & Plan Problem List: (1) Schizoaffective disorder, bipolar type ICD Code: F25.0 (2) Hyperprolactinemia ICD Code: E22.1 Assessment & Plan Continue current psychotropics as ordered. Continue other medications and care as ordered. Justification for Cont. Inpt. High risk for decompensation in a lower level of care. Discharge Planning Counselor to continue to explore assisted living placement. State psychiatric hospitalization as a backup plan. Request HC Surrog/Guard Advoc?: Yes Brayden Haney MD Oct 18, 2016 15:02
[2016-10-18 18:19] VITALS: BP 126/77; PULSE 116; RESP 18; TEMP 98.8; O2SAT 98
[2016-10-19] MEDS: LITHIUM CARBONATE 300 MG CAP PO SCH ×3 (08:45→17:23)
[2016-10-19] MEDS: QUEtiapine FUMARATE 200 MG TAB PO SCH ×2 (08:46→20:29)
[2016-10-19] MEDS: ISONIAZID 300 MG TAB PO SCH (08:46)
[2016-10-19] MEDS: HALOPERIDOL 5 MG TAB PO SCH ×2 (08:46→20:29)
--- NOTE | 2016-10-19 11:42 | HHI.PYPN ---
Subjective Remarks Patient seen and examined with counselor. Chart reviewed. Case discussed with nursing staff. I observed that the patient is sitting apart from peers on the unit, watchful, observing the activities of others. On my examination today the patient requests "take me home to assisted living." She remains internally preoccupied and makes some allusion to "take me out to the portal," hearkening back to some delusional material from earlier in the hospitalization. She quickly catches herself, though, and says "never mind." Denies side effects from medications. Review of Systems ROS Limitations: Psychotic, Poor Historian Other Says that she feels well today. No physical complaints. Objective Alert: Yes [place]: Person, Place Mood: Calm Affect: Blunted Memory Intact: Comment (Not formally assessed) Hallucinations: Other (no AVH) Delusions: Yes Delusion Type: Paranoid Suicidal: Ideation (No SI) Homicidal: Ideation (no HI) Insight/Judgement Poor Remarks Thought processes fairly linear. Labs Labs reviewed. No new labs. Vitals/IOs Vital Signs Date Time Temp Pulse Resp B/P Pulse Ox O2 Delivery O2 Flow Rate FiO2 10/18/16 18:19 98.8 116 18 126/77 98 Assessment & Plan Problem List: (1) Schizoaffective disorder, bipolar type ICD Code: F25.0 (2) Hyperprolactinemia ICD Code: E22.1 Assessment & Plan Continue current psychiatric medications as ordered. Patient has some ongoing psychotic symptoms but is improved from a behavior in socialization standpoint. I think the risks of oversedation and excessive medication from titration of her already significant psychotropic load outweighs the potential benefits as I believe that some of the psychotic material may now unfortunately be chronic. We could consider titrating her Invega Sustenna injection when she next receives this at the end of the month. Continue other medications and care as ordered. Justification for Cont. Inpt. Impairment in reality construction. High risk for decompensation in a lower level of care. Discharge Planning Counselor continues to work on assisted living placement. [facility] referral. Request HC Surrog/Guard Advoc?: Yes Brayedn Haney MD Oct 19, 2016 11:42
[2016-10-19 19:27] VITALS: BP 135/69; PULSE 101; RESP 16; TEMP 98.1
[2016-10-20 05:57] VITALS: BP 108/66; PULSE 92; RESP 16; TEMP 98.3; O2SAT 98
[2016-10-20] MEDS: QUEtiapine FUMARATE 200 MG TAB PO SCH ×2 (08:27→20:29)
[2016-10-20] MEDS: HALOPERIDOL 5 MG TAB PO SCH ×2 (08:27→20:30)
[2016-10-20] MEDS: ISONIAZID 300 MG TAB PO SCH (08:27)
[2016-10-20] MEDS: LITHIUM CARBONATE 300 MG CAP PO SCH ×3 (08:27→17:30)
--- NOTE | 2016-10-20 10:36 | HHI.PYPN ---
Subjective Remarks Patient seen and examined with counselor. Chart reviewed. Case discussed with nursing staff who reports she is fairly flat and somewhat reluctant to take medications although she ultimately does elect to do so. On my examination today, the patient is resting in her room with her covers over her head. She conducts the interview from this position. She is actually fairly pleasant and interactive today. She says that she is just resting up to go out on the unit later this afternoon, and we encourage her in this. No side effects from medications. Review of Systems ROS Limitations: Psychotic, Poor Historian Other No physical complaints today Objective Alert: Yes [place]: Person, Place Mood: Calm Affect: Other (fairly full and reactive) Memory Intact: Comment (Not formally assessed) Hallucinations: Other (no AVH) Delusions: Yes Delusion Type: Paranoid (suspect ongoing paranoia) Suicidal: Ideation (no SI) Homicidal: Ideation (no HI) Insight/Judgement Poor Remarks Speech within normal limits for rate, tone and volume. Labs Labs reviewed. No new labs. Vitals/IOs Vital Signs Date Time Temp Pulse Resp B/P Pulse Ox O2 Delivery O2 Flow Rate FiO2 10/20/16 05:57 98.3 92 16 108/66 98 Intake and Output 10/19/16 10/19/16 10/19/16 07:59 15:59 23:59 Intake Total 720 ml Balance 720 ml Assessment & Plan Problem List: (1) Schizoaffective disorder, bipolar type ICD Code: F25.0 (2) Hyperprolactinemia ICD Code: E22.1 Assessment & Plan Continue current psychotropics as ordered. Continue other medications and care as ordered. Justification for Cont. Inpt. High risk for decompensation in a less restrictive setting. Discharge Planning Placement versus state psychiatric hospital Request HC Surrog/Guard Advoc?: Yes Brayden Haney MD Oct 20, 2016 10:36
[2016-10-20 22:39] VITALS: BP 135/69; PULSE 101; RESP 16; TEMP 98.1; O2SAT 96
[2016-10-21 06:14] VITALS: BP 127/87; PULSE 93; RESP 16; TEMP 98.2; O2SAT 97
[2016-10-21] MEDS: QUEtiapine FUMARATE 200 MG TAB PO SCH ×2 (08:27→21:41)
[2016-10-21] MEDS: HALOPERIDOL 5 MG TAB PO SCH ×2 (08:28→21:41)
[2016-10-21] MEDS: ISONIAZID 300 MG TAB PO SCH (08:28)
[2016-10-21] MEDS: LITHIUM CARBONATE 300 MG CAP PO SCH ×3 (08:28→17:56)
--- NOTE | 2016-10-21 15:06 | HHI.PYPN ---
Subjective Remarks Patient was seen and case discussed with nursing. Patient interviewed in bed. Patient remains apathetic and oppositional. Per nursing her brother called patient claims she doesn't have any brothers sisters her cousins or any family. Denies auditory visual hallucinations. Seclusive, spending time in her room. Objective Alert: Yes [place]: Person, Place Mood: Calm Affect: Other (fairly full and reactive) Memory Intact: Comment (Not formally assessed) Hallucinations: Other (no AVH) Delusions: Yes Delusion Type: Paranoid (suspect ongoing paranoia) Suicidal: Ideation (no SI) Homicidal: Ideation (no HI) Insight/Judgement Poor Vitals/IOs Vital Signs Date Time Temp Pulse Resp B/P Pulse Ox O2 Delivery O2 Flow Rate FiO2 10/21/16 06:14 98.2 93 16 127/87 97 Assessment & Plan Problem List: (1) Schizoaffective disorder, bipolar type ICD Code: F25.0 (2) Hyperprolactinemia ICD Code: E22.1 Assessment & Plan Continue current treatment plan Justification for Cont. Inpt. Patient will decompensate in a less restrictive setting Request HC Surrog/Guard Advoc?: Yes Nelson Walters DO Oct 21, 2016 15:06
[2016-10-21 19:43] VITALS: BP 104/56; PULSE 93; RESP 18; TEMP 98.5; O2SAT 100
[2016-10-22] MEDS: HALOPERIDOL 5 MG TAB PO SCH ×2 (08:25→20:37)
[2016-10-22] MEDS: QUEtiapine FUMARATE 200 MG TAB PO SCH ×2 (08:25→20:37)
[2016-10-22] MEDS: LITHIUM CARBONATE 300 MG CAP PO SCH ×3 (08:25→17:57)
[2016-10-22] MEDS: ISONIAZID 300 MG TAB PO SCH (08:25)
[2016-10-22 17:06] VITALS: BP 117/58; PULSE 100; RESP 18; TEMP 98.1; O2SAT 100
--- NOTE | 2016-10-22 17:15 | HHI.PYPN ---
Subjective Remarks Patient was seen and case discussed with nursing. Patient is irritable and oppositional stressed by her body language facial expressions. When asked about why she she had such an affect she became more irritable and guarded. Nursing then asked about psychosis and patient denied. Mood is apparently "good." Compliant with medication Objective Alert: Yes [place]: Person, Place Mood: Calm Affect: Other (fairly full and reactive) Memory Intact: Comment (Not formally assessed) Hallucinations: Other (no AVH) Delusions: Yes Delusion Type: Paranoid (suspect ongoing paranoia) Suicidal: Ideation (no SI) Homicidal: Ideation (no HI) Insight/Judgement Poor Vitals/IOs Vital Signs Date Time Temp Pulse Resp B/P Pulse Ox O2 Delivery O2 Flow Rate FiO2 10/22/16 17:06 98.1 100 18 117/58 100 Assessment & Plan Problem List: (1) Schizoaffective disorder, bipolar type ICD Code: F25.0 (2) Hyperprolactinemia ICD Code: E22.1 Assessment & Plan Continue current treatment plan Justification for Cont. Inpt. Patient will decompensate in a less restrictive setting Request HC Surrog/Guard Advoc?: Yes Nelson Walters DO Oct 22, 2016 17:15
[2016-10-23 05:53] VITALS: BP 113/63; PULSE 88; RESP 17; TEMP 98.2; O2SAT 98
[2016-10-23] MEDS: LITHIUM CARBONATE 300 MG CAP PO SCH ×3 (08:55→17:26)
[2016-10-23] MEDS: QUEtiapine FUMARATE 200 MG TAB PO SCH ×2 (08:55→20:42)
[2016-10-23] MEDS: ISONIAZID 300 MG TAB PO SCH (08:55)
[2016-10-23] MEDS: HALOPERIDOL 5 MG TAB PO SCH ×2 (08:55→20:41)
--- NOTE | 2016-10-23 09:51 | HHI.PYPN ---
Subjective Remarks Patient seen and examined with nursing staff. Chart reviewed. Case discussed with nursing staff who reports patient is engaging in some staff splitting but otherwise has been no behavioral problem. On my examination today, the patient' s main concern is transition to assisted living placement, which she favors. She feels like her medications are working well. Denies side effects from medications. Remains a little internally preoccupied but no delusional material voice today. She is able to tolerate the milieu somewhat better today. Review of Systems ROS Limitations: Poor Historian Other No physical complaints today Objective Alert: Yes [place]: Person, Place Mood: Calm Affect: Blunted Memory Intact: Comment (Not formally assessed) Hallucinations: Other (some ongoing internal preoccupation) Delusions: Yes Delusion Type: Paranoid (minimal) Suicidal: Ideation (none) Homicidal: Ideation (none) Insight/Judgement Poor Remarks No motoric abnormalities noted. Labs Labs reviewed. No new labs. Vitals/IOs Vital Signs Date Time Temp Pulse Resp B/P Pulse Ox O2 Delivery O2 Flow Rate FiO2 10/23/16 05:53 98.2 88 17 113/63 98 Intake and Output 10/22/16 10/22/16 10/23/16 08:00 16:00 00:00 Intake Total 550 ml 360 ml 360 ml Balance 550 ml 360 ml 360 ml Assessment & Plan Problem List: (1) Schizoaffective disorder, bipolar type ICD Code: F25.0 (2) Hyperprolactinemia ICD Code: E22.1 Assessment & Plan Continue current psychotropics as ordered. Patient due for Invega Sustenna booster dose tomorrow. Continue other medications and care as ordered. Justification for Cont. Inpt. Impairment in reality construction. High risk for decompensation in a lower level of care. Discharge Planning Placement versus state psychiatric hospitalization Request HC Surrog/Guard Advoc?: Yes Brayden Haney MD Oct 23, 2016 09:50
[2016-10-23 15:30] VITALS: BP 127/68; PULSE 105; RESP 18; TEMP 98.7; O2SAT 100
[2016-10-23] MEDS: diphenhydrAMINE HCL 50 MG CAP PO PRN (20:42)
[2016-10-24 05:44] VITALS: BP 120/71; PULSE 61; RESP 18; TEMP 98.1
[2016-10-24] MEDS: QUEtiapine FUMARATE 200 MG TAB PO SCH ×2 (09:06→20:50)
[2016-10-24] MEDS: HALOPERIDOL 5 MG TAB PO SCH ×2 (09:06→20:50)
[2016-10-24] MEDS: ISONIAZID 300 MG TAB PO SCH (09:06)
[2016-10-24] MEDS: LITHIUM CARBONATE 300 MG CAP PO SCH ×3 (09:06→17:14)
--- NOTE | 2016-10-24 09:29 | HHI.PYPN ---
Subjective Remarks Patient seen and examined with counselor. Chart reviewed. Case discussed with counselor, nurse and recreation therapist in treatment team. On my examination today, patient is somewhat more animated and upset than in previous days. Apparently, she is upset that she is due to receive Invega Sustenna booster dose today. She says, "I just want to take pills. If I choose to not take meds anymore, I can do that. Cigarettes are all I need. Music helps me." When I explain that this desire to become non-adherent is precisely why long- acting injectables are necessary, she says, "The fuck? The fuckery! The fuckery!" No reported side effects from medications. Patient remains agreeable to [facility] placement, and I have asked the counselor to call facilities to get an update. Review of Systems ROS Limitations: Poor Historian Other No physical complaints today Objective Alert: Yes [place]: Person, Place Mood: Angry, Anxious Affect: Restricted (dysphoric) Memory Intact: Comment (Not formally assessed) Hallucinations: Other (no AVH) Delusions: Yes Delusion Type: Paranoid Suicidal: Ideation (no SI voiced) Homicidal: Ideation (no HI voiced) Insight/Judgement Poor Remarks No hand tremor, no dystonia, no dyskinesia noted. Grooming and hygiene are fair. Labs Labs reviewed. No new labs. Vitals/IOs Vital Signs Date Time Temp Pulse Resp B/P Pulse Ox O2 Delivery O2 Flow Rate FiO2 10/24/16 05:44 98.1 61 18 120/71 10/23/16 15:30 100 Intake and Output 10/23/16 10/23/16 10/24/16 08:00 16:00 00:00 Intake Total 240 ml Balance 240 ml Assessment & Plan Problem List: (1) Schizoaffective disorder, bipolar type ICD Code: F25.0 (2) Hyperprolactinemia ICD Code: E22.1 Assessment & Plan Administer booster dose of Invega Sustenna today. I have elected not to increase the dose of the Sustenna as I suspect that we will be able to taper oral antipsychotics during maintenance phase of treatment without requiring additional Sustenna, and goal remains to minimize medication burden overall ( although doubtless patient will still require significant psychopharmacology given the severity of her illness). Continue other psychotropics as ordered. Continue other medications and care as ordered. Justification for Cont. Inpt. High risk for decompensation in a less restrictive environment. Discharge Planning Assisted living placement versus state psychiatric hospitalization. Request HC Surrog/Guard Advoc?: Yes Brayden Haney MD Oct 24, 2016 09:29
[2016-10-24] MEDS ORDERED: PALIPERIDONE PALMITATE 156 MG/ML SYRINGE IM ONE (09:30)
[2016-10-24 18:13] VITALS: BP 124/73; PULSE 100; RESP 18; TEMP 97.8; O2SAT 100
[2016-10-25 05:46] VITALS: BP 140/79; PULSE 86; RESP 18; TEMP 98; O2SAT 99
--- NOTE | 2016-10-25 08:49 | HHI.PYPN ---
Subjective Remarks Patient seen and examined with nurse, Danika. Chart reviewed. Case discussed with nursing staff. On my examination today, patient is in fair spirits. She says that the Invega Sustenna injection wasn't as bad as she thought, and she denies any side effects from medications now. She denies any SI, HI or AVH. She says that her long-term goal is to get a job. She is hopeful for assisted living placement soon. Review of Systems ROS Limitations: Poor Historian Other No physical complaints today Objective Alert: Yes [place]: Person, Place Mood: Calm Affect: Blunted Memory Intact: Comment (Not formally assessed) Hallucinations: Other (no AVH) Delusions: No Delusion Type: Other (no miriam delusional material) Suicidal: Ideation (no SI voiced) Homicidal: Ideation (no HI voiced) Insight/Judgement Poor Remarks No hand tremor, no cogwheeling, no dystonia, no dyskinesia. No other motoric abnormalities noted. Labs Labs reviewed. No new labs. Vitals/IOs Vital Signs Date Time Temp Pulse Resp B/P Pulse Ox O2 Delivery O2 Flow Rate FiO2 10/25/16 05:46 98.0 86 18 140/79 99 Intake and Output 10/24/16 10/24/16 10/25/16 08:00 16:00 00:00 Intake Total 240 ml Balance 240 ml Assessment & Plan Problem List: (1) Schizoaffective disorder, bipolar type ICD Code: F25.0 (2) Hyperprolactinemia ICD Code: E22.1 Assessment & Plan Continue current psychotropics as ordered. Continue other medications and care as ordered. Justification for Cont. Inpt. High risk for decompensation in a less restrictive environment. Discharge Planning Placement versus state psychiatric hospitalization. Counselor to call tomorrow for an update from [facility] regarding a possible bed there Sunday. Request HC Surrog/Guard Advoc?: Yes Brayden Haney MD Oct 25, 2016 08:49
[2016-10-25] MEDS: HALOPERIDOL 5 MG TAB PO SCH ×2 (08:56→20:05)
[2016-10-25] MEDS: LITHIUM CARBONATE 300 MG CAP PO SCH ×3 (08:56→17:05)
[2016-10-25] MEDS: ISONIAZID 300 MG TAB PO SCH (08:56)
[2016-10-25] MEDS: QUEtiapine FUMARATE 200 MG TAB PO SCH ×2 (08:56→20:04)
[2016-10-25 19:27] VITALS: BP 147/78; PULSE 104; RESP 18; TEMP 98.8
[2016-10-25] MEDS: diphenhydrAMINE HCL 50 MG CAP PO PRN (20:05)
[2016-10-26 05:58] VITALS: BP 118/66; PULSE 96; RESP 18; TEMP 97.5
[2016-10-26] MEDS: ISONIAZID 300 MG TAB PO SCH (08:03)
[2016-10-26] MEDS: QUEtiapine FUMARATE 200 MG TAB PO SCH ×2 (08:03→20:17)
[2016-10-26] MEDS: HALOPERIDOL 5 MG TAB PO SCH ×2 (08:04→20:17)
[2016-10-26] MEDS: LITHIUM CARBONATE 300 MG CAP PO SCH ×3 (08:04→17:16)
--- NOTE | 2016-10-26 09:49 | HHI.PYPN ---
Subjective Remarks Patient seen and examined with counselor. Chart reviewed. Case discussed with nursing staff. On my examination today, patient is calm and pleasant. She denies any SI or HI. She denies any audiovisual hallucinations. She denies any side effects from medications. No other complaints. Review of Systems ROS Limitations: Poor Historian Other No physical complaints. Objective Alert: Yes [place]: Person, Place Mood: Calm Affect: Blunted (remains somewhat blunted) Memory Intact: Comment (Not formally assessed) Hallucinations: Other (denies AVH) Delusions: No Delusion Type: Other (no delusions) Suicidal: Ideation (denies suicidal ideation) Homicidal: Ideation (denies homicidal ideation) Insight/Judgement Poor Remarks Thought processes fairly linear Labs Labs reviewed. No new labs. Vitals/IOs Vital Signs Date Time Temp Pulse Resp B/P Pulse Ox O2 Delivery O2 Flow Rate FiO2 10/26/16 05:58 97.5 96 18 118/66 10/25/16 05:46 99 Intake and Output 10/25/16 10/25/16 10/26/16 08:00 16:00 00:00 Intake Total 240 ml Balance 240 ml Assessment & Plan Problem List: (1) Schizoaffective disorder, bipolar type ICD Code: F25.0 (2) Hyperprolactinemia ICD Code: E22.1 Assessment & Plan Continue current psychotropics as ordered: Seroquel 400mg BID, Haldol 5mg BID, [place] 300mg BID. Patient also has Invega Sustenna 156mg IM on board and received this last on 10/24. Obviously, we'd like to reduce antipsychotic polypharmacy and patient does seem to be reaching a plateau of stability. Could consider judicious tapering back of patient's antipsychotics, but I suspect she will require at least two such agents in the near term. Continue other medications and care as ordered. Justification for Cont. Inpt. High risk for decompensation in a less restrictive environment Discharge Planning Placement versus [facility]. There is possibility of placement within the next week. I have gone ahead and reconciled patient's meds in anticipation of this. Should med adjustments be made prior to discharge, please adjust Rx accordingly. Request HC Surrog/Guard Advoc?: Yes Brayden Haney MD Oct 26, 2016 09:49
[2016-10-26] MEDS ORDERED: PALI156P IM (15:41)
[2016-10-26] MEDS ORDERED: HALO5TAB PO (15:41)
[2016-10-26] MEDS ORDERED: LITH300C2 PO (15:41)
[2016-10-26] MEDS ORDERED: ISON300T3 PO (15:41)
[2016-10-26] MEDS ORDERED: SERO400T PO (15:41)
[2016-10-26 19:41] VITALS: BP 119/72; PULSE 100; RESP 18; TEMP 98.2; O2SAT 100
[2016-10-26] MEDS: diphenhydrAMINE HCL 50 MG CAP PO PRN (20:17)
[2016-10-27 05:30] VITALS: BP 118/69; PULSE 91; RESP 18; TEMP 98.3; O2SAT 99
[2016-10-27] MEDS: HALOPERIDOL 5 MG TAB PO SCH ×2 (08:30→21:05)
[2016-10-27] MEDS: ISONIAZID 300 MG TAB PO SCH (08:30)
[2016-10-27] MEDS: LITHIUM CARBONATE 300 MG CAP PO SCH ×3 (08:31→17:00)
[2016-10-27] MEDS: QUEtiapine FUMARATE 200 MG TAB PO SCH ×2 (08:31→21:05)
--- NOTE | 2016-10-27 11:34 | HHI.PYPN ---
Subjective Remarks Remains flat, restricted and socially withdrawn. Has no complaints but is still delusional with markedly impaired insight and impaired judgment. Review of Systems ROS Limitations: Clinical Condition Except as stated in HPI: all other systems reviewed are Neg Objective Alert: Yes [place]: Person, Place Mood: Calm Affect: Blunted (remains somewhat blunted) Memory Intact: Comment (Not formally assessed) Hallucinations: Other (denies AVH) Delusions: No Delusion Type: Other (no delusions) Suicidal: Ideation (denies suicidal ideation) Homicidal: Ideation (denies homicidal ideation) Insight/Judgement Insight and judgment remain impaired and unrealistic. Vitals/IOs Vital Signs Date Time Temp Pulse Resp B/P Pulse Ox O2 Delivery O2 Flow Rate FiO2 10/27/16 05:30 98.3 91 18 118/69 99 Assessment & Plan Problem List: (1) Schizoaffective disorder, bipolar type ICD Code: F25.0 (2) Hyperprolactinemia ICD Code: E22.1 Assessment & Plan Estimated LOS: days we will continue to evaluate medication for effectiveness in treating clinical condition. Justification for Cont. Inpt. Patient remains unable to care for herself. Request HC Surrog/Guard Advoc?: Yes Garcia Rayo MD Oct 27, 2016 11:34
[2016-10-27 17:00] VITALS: BP 120/75; PULSE 99; RESP 18; TEMP 98.6; O2SAT 98
[2016-10-27] MEDS: diphenhydrAMINE HCL 50 MG CAP PO PRN (21:05)
[2016-10-28 05:40] VITALS: BP 136/97; PULSE 99; RESP 18; TEMP 98.5; O2SAT 100
[2016-10-28] MEDS: HALOPERIDOL 5 MG TAB PO SCH ×2 (08:59→20:22)
[2016-10-28] MEDS: QUEtiapine FUMARATE 200 MG TAB PO SCH ×2 (08:59→20:22)
[2016-10-28] MEDS: LITHIUM CARBONATE 300 MG CAP PO SCH ×3 (08:59→17:31)
[2016-10-28] MEDS: ISONIAZID 300 MG TAB PO SCH (08:59)
--- NOTE | 2016-10-28 12:48 | HHI.PYPN ---
Subjective Remarks Pt seen and discussed withs reji. She has been calm and cooperative with medications. She has been isolative to room but irritability has decreased. No SI/HI. Objective Alert: Yes [place]: Person, Place Mood: Calm Affect: Blunted (remains somewhat blunted) Memory Intact: Comment (Not formally assessed) Hallucinations: Other (denies AVH) Delusions: No Delusion Type: Other (no delusions) Suicidal: Ideation (denies suicidal ideation) Homicidal: Ideation (denies homicidal ideation) Insight/Judgement poor Vitals/IOs Vital Signs Date Time Temp Pulse Resp B/P Pulse Ox O2 Delivery O2 Flow Rate FiO2 10/28/16 05:40 98.5 99 18 136/97 100 Assessment & Plan Problem List: (1) Schizoaffective disorder, bipolar type ICD Code: F25.0 (2) Hyperprolactinemia ICD Code: E22.1 Assessment & Plan Pt improving. Continue current tx plan. Estimated LOS: days Justification for Cont. Inpt. High risks of decompensation in less restrictive unit. Request HC Surrog/Guard Advoc?: Yes Richelle Clayton MD Oct 28, 2016 12:48
[2016-10-28 15:15] VITALS: BP 122/77; PULSE 99; RESP 18; TEMP 98.2; O2SAT 100
[2016-10-28 19:00] VITALS: BP 123/73; PULSE 106; RESP 18; TEMP 98.4; O2SAT 100
[2016-10-28] MEDS: diphenhydrAMINE HCL 50 MG CAP PO PRN (20:22)
[2016-10-29 06:24] VITALS: BP 106/64; PULSE 86; RESP 17; TEMP 98.1; O2SAT 100
[2016-10-29] MEDS: ISONIAZID 300 MG TAB PO SCH (08:15)
[2016-10-29] MEDS: QUEtiapine FUMARATE 200 MG TAB PO SCH ×2 (08:15→20:24)
[2016-10-29] MEDS: HALOPERIDOL 5 MG TAB PO SCH ×2 (08:15→20:24)
[2016-10-29] MEDS: LITHIUM CARBONATE 300 MG CAP PO SCH ×2 (08:15→12:06)
[2016-10-29 18:04] VITALS: BP 132/74; PULSE 98; RESP 17; TEMP 97; O2SAT 99
--- NOTE | 2016-10-29 19:52 | HHI.PYPN ---
Subjective Remarks Pt seen and discussed with staff. She was transitioned to the 2600 unit without incident. Pt reports that mood is better. Some mild paranoia but pt engages more in interview. NO SI/HI Objective Alert: Yes [place]: Person, Place Mood: Calm Affect: Blunted (remains somewhat blunted) Memory Intact: Comment (Not formally assessed) Hallucinations: Other (denies AVH) Delusions: Yes Delusion Type: Paranoid (mild) Suicidal: Ideation (denies suicidal ideation) Homicidal: Ideation (denies homicidal ideation) Insight/Judgement limited Vitals/IOs Vital Signs Date Time Temp Pulse Resp B/P Pulse Ox O2 Delivery O2 Flow Rate FiO2 10/29/16 18:04 97.0 98 17 132/74 99 Assessment & Plan Problem List: (1) Schizoaffective disorder, bipolar type ICD Code: F25.0 (2) Hyperprolactinemia ICD Code: E22.1 Assessment & Plan Pt improving. Continue current tx plan. Estimated LOS: days Justification for Cont. Inpt. risk of decompensation Request HC Surrog/Guard Advoc?: Yes Richelle Clayton MD Oct 29, 2016 19:51
[2016-10-29] MEDS: diphenhydrAMINE HCL 50 MG CAP PO PRN (20:24)
[2016-10-30 05:53] VITALS: BP 131/63; PULSE 88; RESP 18; TEMP 98.2; O2SAT 97
[2016-10-30] MEDS: LITHIUM CARBONATE 300 MG CAP PO SCH ×4 (09:00→18:00)
[2016-10-30] MEDS: ISONIAZID 300 MG TAB PO SCH (09:42)
[2016-10-30] MEDS: QUEtiapine FUMARATE 200 MG TAB PO SCH ×2 (09:42→21:19)
[2016-10-30] MEDS: HALOPERIDOL 5 MG TAB PO SCH ×2 (09:42→21:19)
--- NOTE | 2016-10-30 11:15 | HHI.PYPN ---
Subjective Remarks Patient was seen and discussed with the senior staff consultant. Patient claimed that she has been doing okay. She denied any active auditory or visual hallucinations. No behavior or management problem reported. She keeps to herself in her room. Patient denied any suicidal ideation intentions or plan. No side effects were complained from the medication she is compliant in taking medication. She claimed that the director social welfare are assisting her in finding an appropriate place. Continue with the same treatment Review of Systems Except as stated in HPI: all other systems reviewed are Neg Objective Alert: Yes [place]: Person, Place Mood: Calm Affect: Blunted (remains somewhat blunted) Memory Intact: Comment (Not formally assessed but seems intact) Hallucinations: Other (denies AVH) Delusions: Yes Delusion Type: Paranoid (mild) Suicidal: Ideation (denies suicidal ideation) Homicidal: Ideation (denies homicidal ideation) Insight/Judgement Limited Vitals/IOs Vital Signs Date Time Temp Pulse Resp B/P Pulse Ox O2 Delivery O2 Flow Rate FiO2 10/30/16 05:53 98.2 88 18 131/63 97 Assessment & Plan Problem List: (1) Schizoaffective disorder, bipolar type ICD Code: F25.0 (2) Hyperprolactinemia ICD Code: E22.1 Assessment & Plan Estimated LOS: days Justification for Cont. Inpt. Risk of decompensation at a lower level of care Request HC Surrog/Guard Advoc?: Yes Vasiliy Hou MD Oct 30, 2016 11:15
[2016-10-30 19:36] VITALS: BP 117/76; PULSE 108; RESP 20; TEMP 98.4; O2SAT 100
[2016-10-31 06:16] VITALS: BP 118/66; PULSE 96; RESP 18; TEMP 98
[2016-10-31] MEDS: ISONIAZID 300 MG TAB PO SCH (09:02)
[2016-10-31] MEDS: QUEtiapine FUMARATE 200 MG TAB PO SCH ×2 (09:02→21:15)
[2016-10-31] MEDS: HALOPERIDOL 5 MG TAB PO SCH ×2 (09:02→21:15)
[2016-10-31] MEDS: LITHIUM CARBONATE 300 MG CAP PO SCH ×3 (09:02→16:00)
--- NOTE | 2016-10-31 11:38 | HHI.PYPN ---
Subjective Remarks Patient was seen and discussed with the hourly sales staff. Patient reported that she has no complaints. She slept fairly well. No behavior or management problem reported. No side effects were complained from the medication. She is compliant in taking medication. She is looking forward to being discharged soon. She is cooperative and compliant. Continue with the same treatment Review of Systems Except as stated in HPI: all other systems reviewed are Neg Psychiatric: COMPLAINS OF: Mood changes, Depression Objective Alert: Yes [place]: Person, Place, Situation Mood: Calm Affect: Blunted (remains somewhat blunted) Memory Intact: Comment (Not formally assessed but seems intact) Hallucinations: Other (denies AVH) Delusions: Yes Delusion Type: Paranoid (mild) Suicidal: Ideation (denies suicidal ideation) Homicidal: Ideation (denies homicidal ideation) Insight/Judgement Fair Vitals/IOs Vital Signs Date Time Temp Pulse Resp B/P Pulse Ox O2 Delivery O2 Flow Rate FiO2 10/31/16 06:16 98.0 96 18 118/66 10/30/16 19:36 100 Assessment & Plan Problem List: (1) Schizoaffective disorder, bipolar type ICD Code: F25.0 (2) Hyperprolactinemia ICD Code: E22.1 Assessment & Plan Estimated LOS: days Justification for Cont. Inpt. Monitoring of the medication and risk of decompensation Request HC Surrog/Guard Advoc?: Yes Vasiliy Hou MD Oct 31, 2016 11:38
[2016-10-31 18:55] VITALS: BP 119/74; PULSE 98; RESP 18; TEMP 98.5; O2SAT 100
[2016-11-01 06:11] VITALS: BP 117/53; PULSE 88; RESP 16; TEMP 98.1; O2SAT 99
[2016-11-01] MEDS: HALOPERIDOL 5 MG TAB PO SCH ×2 (09:00→21:03)
[2016-11-01] MEDS: ISONIAZID 300 MG TAB PO SCH (09:23)
[2016-11-01] MEDS: QUEtiapine FUMARATE 200 MG TAB PO SCH ×2 (09:23→21:03)
[2016-11-01] MEDS: LITHIUM CARBONATE 300 MG CAP PO SCH ×3 (09:23→18:30)
--- NOTE | 2016-11-01 11:16 | HHI.PYPN ---
Subjective Remarks Patient was seen and discussed with the event staff. Patient did not feel good today she did not want to talk to anybody wanted to be left alone. Sometimes patient becomes paranoid and guarded. No behavior or management problem reported. She was encouraged to participate in all the therapeutic activity. Continue with the same treatment Review of Systems Except as stated in HPI: all other systems reviewed are Neg Psychiatric: COMPLAINS OF: Mood changes, Depression, Hallucinations, Delusions Objective Alert: Yes [place]: Person, Place, Situation Mood: Calm Affect: Blunted (remains somewhat blunted) Memory Intact: Comment (Not formally assessed but seems intact) Hallucinations: Other (denies AVH) Delusions: Yes Delusion Type: Paranoid (mild) Suicidal: Ideation (denies suicidal ideation) Homicidal: Ideation (denies homicidal ideation) Insight/Judgement Limited Vitals/IOs Vital Signs Date Time Temp Pulse Resp B/P Pulse Ox O2 Delivery O2 Flow Rate FiO2 11/01/16 06:11 98.1 88 16 117/53 99 Assessment & Plan Problem List: (1) Schizoaffective disorder, bipolar type ICD Code: F25.0 (2) Hyperprolactinemia ICD Code: E22.1 Assessment & Plan Estimated LOS: days Justification for Cont. Inpt. Risk of decompensation and monitoring of the medication Request HC Surrog/Guard Advoc?: Yes Vasiliy Hou MD Nov 01, 2016 11:16
[2016-11-01 18:27] VITALS: BP 107/54; PULSE 104; RESP 16; TEMP 98.5; O2SAT 98
[2016-11-02] MEDS: ISONIAZID 300 MG TAB PO SCH (08:42)
[2016-11-02] MEDS: HALOPERIDOL 5 MG TAB PO SCH ×2 (08:42→20:28)
[2016-11-02] MEDS: QUEtiapine FUMARATE 200 MG TAB PO SCH ×2 (08:43→20:28)
[2016-11-02] MEDS: LITHIUM CARBONATE 300 MG CAP PO SCH ×3 (08:43→18:01)
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
[2016-11-02 19:51] VITALS: BP 135/92; PULSE 69; RESP 16; TEMP 98.3; O2SAT 97
[2016-11-03 05:32] VITALS: BP 130/63; PULSE 100; RESP 18; TEMP 98.2; O2SAT 99
--- NOTE | 2016-11-03 08:21 | HHI.PYPN ---
Subjective Remarks Patient seen and examined in the day area per patient preference. Chart reviewed. Case discussed with nursing staff reports patient is more or less unchanged today. On my examination today, patient seems somewhat irritable to have been disturbed. She was watching television, gesticulating to herself. She denies any subjective psychiatric issues and likewise denies any side effects from medications. 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 I know you don't know what that means, but I hope one day you will." Review of Systems ROS Limitations: Poor Historian Other No physical complaints. Objective Alert: Yes [place]: Person, Place (at least), Situation Mood: Calm Affect: Blunted (somewhat irritable) Memory Intact: Comment (not formally assessed today) Hallucinations: Other (remains somewhat internally stimulated) Delusions: Yes Delusion Type: Paranoid (mild) Suicidal: Ideation (No SI) Homicidal: Ideation (No HI) Insight/Judgement Poor Remarks No abnormal motor movements noted. Labs Laboratories reviewed. Repeat CBC and CMP are both unremarkable. Vitals/IOs Vital Signs Date Time Temp Pulse Resp B/P Pulse Ox O2 Delivery O2 Flow Rate FiO2 11/03/16 05:32 98.2 100 18 130/63 99 Assessment & Plan Problem List: (1) Schizoaffective disorder, bipolar type ICD Code: F25.0 (2) Hyperprolactinemia ICD Code: E22.1 Assessment & Plan Patient appears to be tolerating the milieu of the lower acuity inpatient psychiatric unit well. Continue current psychiatric medications as ordered. Continue other medications and care as ordered. Justification for Cont. Inpt. High risk for decompensation in a less restrictive environment. Discharge Planning [facility] placement versus [facility]. Request HC Surrog/Guard Advoc?: Yes Brayden Haney MD Nov 03, 2016 08:21
[2016-11-03] MEDS: LITHIUM CARBONATE 300 MG CAP PO SCH ×3 (09:14→17:18)
[2016-11-03] MEDS: HALOPERIDOL 5 MG TAB PO SCH ×2 (09:14→20:37)
[2016-11-03] MEDS: QUEtiapine FUMARATE 200 MG TAB PO SCH ×2 (09:14→20:37)
[2016-11-03] MEDS: LORazepam 1 MG TAB PO PRN (09:14)
[2016-11-03] MEDS: ISONIAZID 300 MG TAB PO SCH (09:14)
[2016-11-03 09:27] LABS: AUTOMATED NEUTROPHIL # 2.9 TH/MM3 (1.8-7.7); BASOPHIL % 0.7 % (0.0-2.0); EOSINOPHIL # 0.8 TH/MM3 (0-0.4); HEMATOCRIT 38.7 % (35.0-46.0); HEMO FLAGS DIFF FINAL; LYMPH % 40.7 % (9.0-44.0); LYMPHOCYTE # 2.8 TH/MM3 (1.0-4.8); MEAN CELL VOLUME 86.2 FL (80.0-100.0); MEAN CORPUSCULAR HEMOGLOBIN 28.3 PG (27.0-34.0); MEAN CORPUSCULAR HGB CONC 32.9 % (32.0-36.0); MONO % 5.6 % (0.0-8.0); PLATELET COUNT 359 TH/MM3 (150-450); RED BLOOD COUNT 4.49 MIL/MM3 (4.00-5.30); RED CELL DISTRIBUTION WIDTH 13.3 % (11.6-17.2)
[2016-11-03 09:39] LABS: ANION GAP 9 MEQ/L (5-15); AST (GOT) 14 U/L (15-37); BICARBONATE 24.8 MEQ/L (21.0-32.0); BLOOD UREA NITROGEN 8 MG/DL (7-18); CHLORIDE 106 MEQ/L (98-107); GLOMERULAR FILTRATION RATE 90 ML/MIN (>89); POTASSIUM 3.7 MEQ/L (3.5-5.1); SODIUM (NA) 140 MEQ/L (136-145)
[2016-11-03 09:42] LABS: ALKALINE PHOSPHATASE 104 U/L (45-117); ALT (GPT) 24 U/L (10-53); TOTAL BILIRUBIN ADULT 0.3 MG/DL (0.2-1.0)
[2016-11-03 18:25] VITALS: BP 122/78; PULSE 91; RESP 18; TEMP 98.4; O2SAT 100
[2016-11-03] MEDS: diphenhydrAMINE HCL 50 MG CAP PO PRN (20:37)
[2016-11-04 05:55] VITALS: BP 100/58; PULSE 77; RESP 16; TEMP 98.2; O2SAT 99
[2016-11-04] MEDS: QUEtiapine FUMARATE 200 MG TAB PO SCH ×2 (08:32→20:56)
[2016-11-04] MEDS: ISONIAZID 300 MG TAB PO SCH (08:32)
[2016-11-04] MEDS: HALOPERIDOL 5 MG TAB PO SCH ×2 (08:32→20:55)
[2016-11-04] MEDS: LITHIUM CARBONATE 300 MG CAP PO SCH ×3 (08:32→17:38)
--- NOTE | 2016-11-04 14:39 | HHI.PYPN ---
Subjective Remarks Patient was seen and case discussed with nursing. Patient is more talkative and interactive compared to her last interview. Her insight has improved and she says she is working on her short-term and long-term goals. Looking forward to placement. Compliant with her medications. Continues to deny psychotic symptoms. Affect is blunted Objective Alert: Yes [place]: Person, Place (at least), Situation Mood: Calm Affect: Other (blunted) Memory Intact: Comment (not formally assessed today) Hallucinations: Other (remains somewhat internally stimulated) Delusions: Yes Delusion Type: Paranoid (mild) Suicidal: Ideation (denies) Homicidal: Ideation (No HI) Insight/Judgement Poor Vitals/IOs Vital Signs Date Time Temp Pulse Resp B/P Pulse Ox O2 Delivery O2 Flow Rate FiO2 11/04/16 05:55 98.2 77 16 100/58 99 Assessment & Plan Problem List: (1) Schizoaffective disorder, bipolar type ICD Code: F25.0 (2) Hyperprolactinemia ICD Code: E22.1 Assessment & Plan Continue current treatment plan Justification for Cont. Inpt. Patient will decompensate in a less restrictive setting Request HC Surrog/Guard Advoc?: Yes Nelson Walters DO Nov 04, 2016 14:39
[2016-11-04 18:00] VITALS: BP 125/77; PULSE 99; RESP 19; TEMP 98.2; O2SAT 99
[2016-11-04] MEDS: diphenhydrAMINE HCL 50 MG CAP PO PRN (20:56)
[2016-11-05 06:24] VITALS: BP 128/61; PULSE 103; RESP 17; TEMP 98.4; O2SAT 100
[2016-11-05] MEDS: QUEtiapine FUMARATE 200 MG TAB PO SCH ×2 (08:51→20:52)
[2016-11-05] MEDS: ISONIAZID 300 MG TAB PO SCH (08:52)
[2016-11-05] MEDS: LITHIUM CARBONATE 300 MG CAP PO SCH ×3 (08:52→17:13)
[2016-11-05] MEDS: HALOPERIDOL 5 MG TAB PO SCH ×2 (08:52→20:52)
--- NOTE | 2016-11-05 13:56 | HHI.PYPN ---
Subjective Remarks Patient was seen today and case discussed with nursing. Patient is no longer pleasant during the interview. During our interview, she is angry that I "got me to talk." She was mood and cursing at the nurse earlier. As I walked out the room patients yelled various curse words. Compliant with medications. Some evidence of paranoia telling the nurse if you hate me, I will kill you. Denies hallucinations Objective Alert: Yes [place]: Person, Place (at least), Situation Mood: Angry, Oppositional Affect: Flat, Other Memory Intact: Comment (not formally assessed today) Hallucinations: Other (remains somewhat internally stimulated) Delusions: Yes Delusion Type: Paranoid (moderate) Suicidal: Ideation (denies) Homicidal: Ideation (No HI) Insight/Judgement Poor Vitals/IOs Vital Signs Date Time Temp Pulse Resp B/P Pulse Ox O2 Delivery O2 Flow Rate FiO2 11/05/16 06:24 98.4 103 17 128/61 100 Assessment & Plan Problem List: (1) Schizoaffective disorder, bipolar type ICD Code: F25.0 (2) Hyperprolactinemia ICD Code: E22.1 Assessment & Plan Continue current treatment plan Justification for Cont. Inpt. Patient will decompensate in a less restrictive setting Request HC Surrog/Guard Advoc?: Yes Nelson Walters DO Nov 05, 2016 13:56
[2016-11-05 17:35] VITALS: BP 143/95; PULSE 97; RESP 18; TEMP 97.4; O2SAT 99
[2016-11-05 20:07] VITALS: BP 143/95; PULSE 97; RESP 18; TEMP 97.4; O2SAT 99
[2016-11-05] MEDS: diphenhydrAMINE HCL 50 MG CAP PO PRN (20:52)
[2016-11-06 05:50] VITALS: BP 108/66; PULSE 94; RESP 16; TEMP 98.1; O2SAT 97
[2016-11-06] MEDS: QUEtiapine FUMARATE 200 MG TAB PO SCH ×2 (08:26→20:35)
[2016-11-06] MEDS: ISONIAZID 300 MG TAB PO SCH (08:26)
[2016-11-06] MEDS: LITHIUM CARBONATE 300 MG CAP PO SCH ×3 (08:26→17:02)
[2016-11-06] MEDS: HALOPERIDOL 5 MG TAB PO SCH ×2 (08:26→20:35)
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
[2016-11-06 16:35] VITALS: BP 124/83; PULSE 102; RESP 18; TEMP 98.1; O2SAT 100
[2016-11-06] MEDS: diphenhydrAMINE HCL 50 MG CAP PO PRN (20:35)
[2016-11-07 05:30] VITALS: BP 134/93; PULSE 77; RESP 16; TEMP 98; O2SAT 98
[2016-11-07] MEDS: HALOPERIDOL 5 MG TAB PO SCH ×2 (09:00→20:33)
[2016-11-07] MEDS: LITHIUM CARBONATE 300 MG CAP PO SCH ×3 (09:00→18:00)
[2016-11-07] MEDS: QUEtiapine FUMARATE 200 MG TAB PO SCH ×2 (09:00→20:33)
[2016-11-07] MEDS: ISONIAZID 300 MG TAB PO SCH (09:00)
--- NOTE | 2016-11-07 14:02 | HHI.PYPN ---
Subjective Remarks Patient seen and examined. Chart reviewed. Case discussed with nurse and counselor in treatment team. Per nursing staff, patient is "doing a lot better " relative to nurses previous contact with the patient. Counselor reports that she continues to work on placement for this patient. She notes that an assisted -living facility is coming to evaluate someone else tomorrow and the counselor will try to see if this facility might have any interest in the patient. On my examination today, patient is in bed with the covers pulled over her head. She does briefly pull the covers down and engage in interview. She has no particular psychiatric complaints. She denies any SI, HI or AVH. She denies side effects from medications. She remains agreeable to assisted living placement, and in fact one of her goals was to be placed. Review of Systems ROS Limitations: Poor Historian Other No reported physical complaints today Objective Alert: Yes [place]: Person, Place (at least), Situation Mood: Calm Affect: Blunted Memory Intact: Comment (not formally assessed) Hallucinations: Other (remains a little internally preoccupied) Delusions: No Delusion Type: Other (no miriam delusional material) Suicidal: Ideation (Denies SI) Homicidal: Ideation (denies HI) Insight/Judgement Poor Remarks No abnormal motor movements noted. Labs Labs reviewed. No new labs. Vitals/IOs Vital Signs Date Time Temp Pulse Resp B/P Pulse Ox O2 Delivery O2 Flow Rate FiO2 11/07/16 05:30 98.0 77 16 134/93 98 Assessment & Plan Problem List: (1) Schizoaffective disorder, bipolar type ICD Code: F25.0 (2) Hyperprolactinemia ICD Code: E22.1 Assessment & Plan Continue current psychiatric medications. Continue other medications and care as ordered. Justification for Cont. Inpt. High risk for decompensation in a less restrictive environment. Discharge Planning Placement versus state psychiatric hospitalization. Request HC Surrog/Guard Advoc?: Yes Brayden Haney MD Nov 07, 2016 14:02
[2016-11-08] MEDS: LORazepam 1 MG TAB PO PRN (02:06)
[2016-11-08] MEDS: diphenhydrAMINE HCL 50 MG CAP PO PRN (02:34)
[2016-11-08 06:02] VITALS: BP 126/76; PULSE 88; RESP 18; TEMP 97.9; O2SAT 98
[2016-11-08] MEDS: ISONIAZID 300 MG TAB PO SCH (08:50)
[2016-11-08] MEDS: HALOPERIDOL 5 MG TAB PO SCH ×2 (08:50→21:33)
[2016-11-08] MEDS: LITHIUM CARBONATE 300 MG CAP PO SCH ×3 (08:50→17:50)
[2016-11-08] MEDS: QUEtiapine FUMARATE 200 MG TAB PO SCH ×2 (08:50→21:33)
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
[2016-11-08 18:51] VITALS: BP 103/67; PULSE 93; RESP 18; TEMP 97.1; O2SAT 100
[2016-11-09] MEDS: LORazepam 1 MG TAB PO PRN (02:35)
[2016-11-09] MEDS: diphenhydrAMINE HCL 50 MG CAP PO PRN ×2 (02:37→21:48)
[2016-11-09] MEDS: LITHIUM CARBONATE 300 MG CAP PO SCH ×3 (08:18→17:45)
[2016-11-09] MEDS: QUEtiapine FUMARATE 200 MG TAB PO SCH ×2 (08:18→21:46)
[2016-11-09] MEDS: ISONIAZID 300 MG TAB PO SCH (08:18)
[2016-11-09] MEDS: HALOPERIDOL 5 MG TAB PO SCH ×2 (08:18→21:51)
--- NOTE | 2016-11-09 15:12 | HHI.PYPN ---
Subjective Remarks Patient seen and examined. Chart reviewed. Case discussed with nursing staff who reports that patient continues to respond to internal stimuli and needs to be prompted to attend to basic ADLs like showering. On my examination today, the patient is secluding in her room. She says that she is "just getting a little rest." She tends to minimize her current psychiatric symptomatology, denying AVH for example although I do agree with the nursing staff that she is responding to internal stimuli. Despite this, she is surprisingly agreeable to considering a medication adjustment. She would like to decrease her medication burden in the morning, and we discussed various adjustments we might make in this regard. Denies side effects from medications besides feeling perhaps a little bit sedated in the morning. Review of Systems ROS Limitations: Poor Historian Other No reported physical complaints Objective Alert: Yes [place]: Person, Place, Situation Mood: Calm Affect: Blunted Memory Intact: Comment (not formally assessed) Hallucinations: Other (remains internally preoccupied) Delusions: No Delusion Type: Other (no miriam delusional material at this time) Suicidal: Ideation (Denies SI) Homicidal: Ideation (denies HI) Insight/Judgement Poor Remarks No abnormal motor movements noted Labs Test 11/09/16 05:51 [place] Level 0.6 MEQ/L Labs reviewed. [place] level is not decreased, suggesting that nonadherence is not the issue. Vitals/IOs Vital Signs Date Time Temp Pulse Resp B/P Pulse Ox O2 Delivery O2 Flow Rate FiO2 11/08/16 18:51 97.1 93 18 103/67 100 Assessment & Plan Problem List: (1) Schizoaffective disorder, bipolar type ICD Code: F25.0 (2) Hyperprolactinemia ICD Code: E22.1 Assessment & Plan Based on my conversation with the patient, I will titrate her Haldol to 5 mg in the morning and 7.5 mg at bedtime. I will taper her Seroquel to 200/400mg. Continue other psychotropics as ordered. Continue other medications and care as ordered. Justification for Cont. Inpt. High risk for decompensation in a less restrictive environment. Impairments in reality construction likely persist. Impairments in self-care. Discharge Planning [facility] psychiatric [facility] referral versus placement. Request HC Surrog/Guard Advoc?: Yes Brayden Haney MD Nov 09, 2016 15:12
[2016-11-09] MEDS ORDERED: PILL SPLITTER OTHER PRN (17:45)
[2016-11-09 20:19] VITALS: BP 121/78; PULSE 110; RESP 18; TEMP 97.1; O2SAT 99
[2016-11-10] MEDS: LORazepam 1 MG TAB PO PRN (00:24)
[2016-11-10 06:07] VITALS: BP 119/65; PULSE 84; RESP 18; TEMP 97.9; O2SAT 99
[2016-11-10] MEDS: LITHIUM CARBONATE 300 MG CAP PO SCH ×3 (08:47→18:00)
[2016-11-10] MEDS: ISONIAZID 300 MG TAB PO SCH (08:47)
[2016-11-10] MEDS ORDERED: QUEtiapine FUMARATE 200 MG TAB PO SCH (09:00)
[2016-11-10] MEDS ORDERED: HALOPERIDOL 5 MG TAB PO SCH (09:00)
--- NOTE | 2016-11-10 13:41 | HHI.PYPN ---
Subjective Remarks Patient seen and examined. Chart reviewed. On my examination today, patient remained seclusive to room. She keeps the covers over her head. She is fairly pleasant however and engages in interview. She feels that the medication adjustment of reducing daytime sedating medications has been helpful and would like to continue this. She denies any suicidal ideation. Denies hallucinations. Denies side effects from medications. Review of Systems ROS Limitations: Poor Historian Other No physical complaints today Objective Alert: Yes [place]: Person, Place, Situation Mood: Calm Affect: Flat Memory Intact: Comment (not formally assessed) Hallucinations: Other (denies AVH) Delusions: No Delusion Type: Other (no miriam delusions but remains little guarded) Suicidal: Ideation (Denies SI) Homicidal: Ideation (no HI) Insight/Judgement Poor Remarks Thought process linear. Labs Labs reviewed. No new labs. Vitals/IOs Vital Signs Date Time Temp Pulse Resp B/P Pulse Ox O2 Delivery O2 Flow Rate FiO2 11/10/16 06:07 97.9 84 18 119/65 99 Assessment & Plan Problem List: (1) Schizoaffective disorder, bipolar type ICD Code: F25.0 (2) Hyperprolactinemia ICD Code: E22.1 Assessment & Plan Discontinue morning dose of Seroquel. Continue HS dose of Seroquel. Titrate Haldol to 7.5mg BID. Continue to monitor on the inpatient unit. Continue other medications and care as ordered. Justification for Cont. Inpt. High risk for decompensation in a less restrictive environment. Medication changes. Discharge Planning [facility] psychiatric hospital referral. I have asked that counselor to check on patient's place in the wait list. We are also working on assisted living placement as an alternative. Request HC Surrog/Guard Advoc?: Yes Brayden Haney MD Nov 10, 2016 13:41
[2016-11-10 19:30] VITALS: BP 117/74; PULSE 103; RESP 18; TEMP 98.5; O2SAT 99
[2016-11-10] MEDS: QUEtiapine FUMARATE 200 MG TAB PO SCH (21:53)
[2016-11-10] MEDS: HALOPERIDOL 5 MG TAB PO SCH (21:54)
[2016-11-11 06:23] VITALS: BP 124/77; PULSE 81; RESP 18; TEMP 97.9; O2SAT 99
[2016-11-11] MEDS: LITHIUM CARBONATE 300 MG CAP PO SCH ×3 (08:55→18:00)
[2016-11-11] MEDS: ISONIAZID 300 MG TAB PO SCH (08:55)
[2016-11-11] MEDS: HALOPERIDOL 5 MG TAB PO SCH ×2 (08:56→21:00)
[2016-11-11 18:28] VITALS: BP 139/75; PULSE 127; RESP 18; TEMP 98.3; O2SAT 100
[2016-11-11] MEDS: diphenhydrAMINE HCL 50 MG CAP PO PRN (20:47)
[2016-11-11] MEDS: QUEtiapine FUMARATE 200 MG TAB PO SCH (20:47)
--- NOTE | 2016-11-11 21:13 | HHI.PYPN ---
Subjective Remarks Pt seen and discussed with staff. She is compliant with medications and tolerating haldol titration without side effects. She reports mood is good. She has been spending more time in day room but has not gone out for fresh air and is still rather isolative. No agitation. She reports mood is good and denies AH. NO SI/HI. Objective Alert: Yes [place]: Person, Place, Situation Mood: Calm Affect: Flat Memory Intact: Comment (intact) Hallucinations: Other (none) Delusions: No Delusion Type: Other (none) Suicidal: Ideation (Denies SI) Homicidal: Ideation (no HI) Insight/Judgement poor Vitals/IOs Vital Signs Date Time Temp Pulse Resp B/P Pulse Ox O2 Delivery O2 Flow Rate FiO2 11/11/16 18:28 98.3 127 18 139/75 100 Assessment & Plan Problem List: (1) Schizoaffective disorder, bipolar type ICD Code: F25.0 (2) Hyperprolactinemia ICD Code: E22.1 Assessment & Plan Continue current tx plan. Estimated LOS: days Justification for Cont. Inpt. risk of decompensation Request HC Surrog/Guard Advoc?: Yes Richelle Clayton MD Nov 11, 2016 21:13
[2016-11-12 04:53] VITALS: BP 114/72; PULSE 92; RESP 18; TEMP 98.2; O2SAT 100
[2016-11-12] MEDS: LITHIUM CARBONATE 300 MG CAP PO SCH ×3 (09:36→18:00)
[2016-11-12] MEDS: ISONIAZID 300 MG TAB PO SCH (09:36)
[2016-11-12] MEDS: HALOPERIDOL 5 MG TAB PO SCH ×2 (09:36→20:40)
--- NOTE | 2016-11-12 17:51 | HHI.PYPN ---
Subjective Remarks Pt seen and discussed with staff. She was agitated last night with nurse and threatened to cast spells on RN. Today she has been intrusive on unit, but not agitated. She states that she wants to go to an RETIREMENT. No delusional material elicited during interview. Compliant with medications and denies side effects. NO SI/HI Objective Alert: Yes [place]: Person, Place, Situation Mood: Calm Affect: Flat Memory Intact: Comment (intact) Hallucinations: Other (none) Delusions: No Delusion Type: Other (none) Suicidal: Ideation (Denies SI) Homicidal: Ideation (no HI) Insight/Judgement poor Vitals/IOs Vital Signs Date Time Temp Pulse Resp B/P Pulse Ox O2 Delivery O2 Flow Rate FiO2 11/12/16 04:53 98.2 92 18 114/72 100 Assessment & Plan Problem List: (1) Schizoaffective disorder, bipolar type ICD Code: F25.0 (2) Hyperprolactinemia ICD Code: E22.1 Assessment & Plan Continue current tx plan. Estimated LOS: days Justification for Cont. Inpt. risk of decompensation Request HC Surrog/Guard Advoc?: Yes Richelle Clayton MD Nov 12, 2016 17:51
[2016-11-12 17:56] VITALS: BP 126/79; PULSE 105; RESP 18; TEMP 98.6; O2SAT 98
[2016-11-12] MEDS: diphenhydrAMINE HCL 50 MG CAP PO PRN (20:40)
[2016-11-12] MEDS: QUEtiapine FUMARATE 200 MG TAB PO SCH (20:40)
[2016-11-13 04:59] VITALS: BP 102/66; PULSE 98; RESP 18; TEMP 97.1; O2SAT 100
[2016-11-13] MEDS: LITHIUM CARBONATE 300 MG CAP PO SCH ×3 (09:14→17:41)
[2016-11-13] MEDS: ISONIAZID 300 MG TAB PO SCH (09:14)
[2016-11-13] MEDS: HALOPERIDOL 5 MG TAB PO SCH ×2 (09:14→20:19)
--- NOTE | 2016-11-13 09:15 | HHI.PYPN ---
Subjective Remarks Patient seen and examined. Chart reviewed. Case discussed with nursing staff who reports patient is blunted and seclusive to room. Case discussed in treatment team with counselor, nursing staff and occupation therapist. On my examination today, patient says that she is somewhat tired, which she attributes to poor sleep overnight. She declines medication adjustment to improve this. Denies SI or HI. Denies AVH. Denies side effects from medications. She declines further medication adjustments at this time. Review of Systems ROS Limitations: Poor Historian Other No physical complaints today besides feeling somewhat tired Objective Alert: Yes [place]: Person, Place, Situation (remains agreeable to [facility] placement) Mood: Calm Affect: Flat Memory Intact: Comment (not formally assessed) Hallucinations: Other (no AVH) Delusions: No Delusion Type: Other (remains somewhat guarded but no miriam paranoia) Suicidal: Ideation (no SI) Homicidal: Ideation (no HI) Insight/Judgement Poor Remarks Speech within normal limits for rate, tone and volume. Labs Labs reviewed. No new labs. Vitals/IOs Vital Signs Date Time Temp Pulse Resp B/P Pulse Ox O2 Delivery O2 Flow Rate FiO2 11/13/16 04:59 97.1 98 18 102/66 100 Assessment & Plan Problem List: (1) Schizoaffective disorder, bipolar type ICD Code: F25.0 (2) Hyperprolactinemia ICD Code: E22.1 Assessment & Plan Continue current psychotropics as ordered. Continue other medications and care as ordered. Justification for Cont. Inpt. Impairment in social function. High risk for decompensation in a less restrictive environment. Discharge Planning Placement versus state psychiatric hospital Request HC Surrog/Guard Advoc?: Yes Brayden Haney MD Nov 13, 2016 09:15
[2016-11-13 19:41] VITALS: BP 123/81; PULSE 81; RESP 18; TEMP 96.3; O2SAT 98
[2016-11-13] MEDS: QUEtiapine FUMARATE 200 MG TAB PO SCH (20:19)
[2016-11-13] MEDS: diphenhydrAMINE HCL 50 MG CAP PO PRN (20:19)
[2016-11-14 05:51] VITALS: BP 99/67; PULSE 95; RESP 16; TEMP 96.9; O2SAT 100
[2016-11-14] MEDS: ISONIAZID 300 MG TAB PO SCH (08:57)
[2016-11-14] MEDS: HALOPERIDOL 5 MG TAB PO SCH ×2 (08:57→21:05)
[2016-11-14] MEDS: LITHIUM CARBONATE 300 MG CAP PO SCH ×3 (08:58→17:11)
--- NOTE | 2016-11-14 14:14 | HHI.PYPN ---
Subjective Remarks Patient seen and examined. Chart reviewed. Case discussed with nursing staff who reports patient has been no behavioral problem and has been seclusive to room. On my examination today, that is where I find the patient. She is laying in bed. She has no particular complaints and says that she is doing well. She denies side effects from medications. Counselor informs me that a marketing development representative from an assisted living facility will be out to evaluate the patient tomorrow, and I have apprised the patient of this. She is hopeful for assisted living placement soon. Review of Systems Other No physical complaints today Objective Alert: Yes [place]: Person, Place Mood: Calm Affect: Flat (remains fairly flat) Memory Intact: Comment (not formally assessed) Hallucinations: Other (no AVH) Delusions: No Delusion Type: Other (no delusions elicited) Suicidal: Ideation (no SI) Homicidal: Ideation (no HI) Insight/Judgement Poor Remarks No abnormal motor movements noted Labs Labs reviewed. No new labs. Vitals/IOs Vital Signs Date Time Temp Pulse Resp B/P Pulse Ox O2 Delivery O2 Flow Rate FiO2 11/14/16 05:51 96.9 95 16 99/67 100 Assessment & Plan Problem List: (1) Schizoaffective disorder, bipolar type ICD Code: F25.0 (2) Hyperprolactinemia ICD Code: E22.1 Assessment & Plan Continue current psychotropics as ordered. Continue other medications and care as ordered. Justification for Cont. Inpt. High risk for decompensation in a less restrictive environment. Discharge Planning Assisted living placement versus state psychiatric hospitalization. Request HC Surrog/Guard Advoc?: Yes Brayden Haney MD Nov 14, 2016 14:14
[2016-11-14 17:18] VITALS: BP 120/76; PULSE 108; RESP 16; TEMP 97.8; O2SAT 100
[2016-11-14] MEDS: QUEtiapine FUMARATE 200 MG TAB PO SCH (21:05)
[2016-11-14] MEDS: diphenhydrAMINE HCL 50 MG CAP PO PRN (21:05)
[2016-11-15 06:11] VITALS: BP 110/68; PULSE 81; RESP 18; TEMP 98.9; O2SAT 99
[2016-11-15] MEDS: HALOPERIDOL 5 MG TAB PO SCH ×2 (08:38→20:14)
[2016-11-15] MEDS: ISONIAZID 300 MG TAB PO SCH (08:38)
[2016-11-15] MEDS: LITHIUM CARBONATE 300 MG CAP PO SCH ×3 (08:38→17:58)
--- NOTE | 2016-11-15 11:05 | HHI.PYPN ---
Subjective Remarks Patient seen and examined. Chart reviewed. Case discussed with nursing staff who reports patient is more or less unchanged today. On my examination today, patient is calm and pleasant. She asks appropriate questions regarding disposition to the counselor. Asks appropriate questions about changing her payee. No SI or HI voiced. No side effects from medications. Review of Systems Other No physical complaints today Objective Alert: Yes [place]: Person, Place Mood: Calm Affect: Blunted Memory Intact: Comment (seems fair on clinical exam) Hallucinations: Other (none) Delusions: No Delusion Type: Other (none elicited) Suicidal: Ideation (no SI) Homicidal: Ideation (no HI) Insight/Judgement Poor Remarks No motor abnormalities noted Labs Labs reviewed. No new labs. Vitals/IOs Vital Signs Date Time Temp Pulse Resp B/P Pulse Ox O2 Delivery O2 Flow Rate FiO2 11/15/16 06:11 98.9 81 18 110/68 99 Assessment & Plan Problem List: (1) Schizoaffective disorder, bipolar type ICD Code: F25.0 (2) Hyperprolactinemia ICD Code: E22.1 Assessment & Plan Continue Haldol, Seroquel and lithium as ordered. Booster dose of Invega Sustenna due at the end of the month. Continue other medications and care as ordered. Justification for Cont. Inpt. High risk for decompensation in a less restrictive environment. Discharge Planning Placement versus state psychiatric hospital referral. Request HC Surrog/Guard Advoc?: Yes Brayden Haney MD Nov 15, 2016 11:04
[2016-11-15 19:26] VITALS: BP 118/74; PULSE 101; RESP 18; TEMP 98.6; O2SAT 99
[2016-11-15] MEDS: QUEtiapine FUMARATE 200 MG TAB PO SCH (20:15)
[2016-11-16 06:08] VITALS: BP 110/58; PULSE 78; RESP 16; TEMP 98; O2SAT 97
[2016-11-16] MEDS: HALOPERIDOL 5 MG TAB PO SCH ×2 (09:53→20:12)
[2016-11-16] MEDS: ISONIAZID 300 MG TAB PO SCH (09:54)
[2016-11-16] MEDS: LITHIUM CARBONATE 300 MG CAP PO SCH ×3 (09:54→17:58)
--- NOTE | 2016-11-16 12:21 | HHI.PYPN ---
Subjective Remarks Patient seen and examined. Chart reviewed. Case discussed with nursing staff. No behavioral problems noted. On my examination today, patient is in good spirits. No SI, HI or AVH. Asking about placement. I explained that we are working on it and that we appreciate her patience. Patient replies with a smile , "Yeah, I have been patient." Denies side effects from medications. Review of Systems Other No reported physical complaints today Objective Alert: Yes [place]: Person, Place Mood: Calm Affect: Blunted Memory Intact: Comment (remains fair) Hallucinations: Other (no AVH) Delusions: No Delusion Type: Other (no delusions) Suicidal: Ideation (no SI) Homicidal: Ideation (no HI) Insight/Judgement Poor Remarks Grooming and hygiene fair Labs Labs reviewed. No new labs. Vitals/IOs Vital Signs Date Time Temp Pulse Resp B/P Pulse Ox O2 Delivery O2 Flow Rate FiO2 11/16/16 06:08 98.0 78 16 110/58 97 Intake and Output 11/15/16 11/15/16 11/16/16 08:00 16:00 00:00 Intake Total 240 ml 360 ml Balance 240 ml 360 ml Assessment & Plan Problem List: (1) Schizoaffective disorder, bipolar type ICD Code: F25.0 (2) Hyperprolactinemia ICD Code: E22.1 Assessment & Plan Continue current psychotropics as ordered. Continue other medications and care as ordered. Justification for Cont. Inpt. High risk for decompensation in a less restrictive environment. Discharge Planning Placement versus [facility]. Request HC Surrog/Guard Advoc?: Yes Brayden Haney MD Nov 16, 2016 12:21
[2016-11-16 18:55] VITALS: BP 118/79; PULSE 97; RESP 16; TEMP 96.7; O2SAT 96
[2016-11-16] MEDS: QUEtiapine FUMARATE 200 MG TAB PO SCH (20:12)
[2016-11-17 06:20] VITALS: BP 125/79; PULSE 99; RESP 16; TEMP 97.9; O2SAT 98
[2016-11-17] MEDS: ISONIAZID 300 MG TAB PO SCH (09:04)
[2016-11-17] MEDS: HALOPERIDOL 5 MG TAB PO SCH ×2 (09:04→21:13)
[2016-11-17] MEDS: LITHIUM CARBONATE 300 MG CAP PO SCH ×3 (09:04→17:50)
--- NOTE | 2016-11-17 13:42 | HHI.PYPN ---
Subjective Remarks Patient continues to be seclusive and withdrawn. Continues to demonstrate paranoid ideation. Review of Systems ROS Limitations: Clinical Condition Except as stated in HPI: all other systems reviewed are Neg Objective Alert: Yes [place]: Person, Place Mood: Calm Affect: Restricted, Blunted Memory Intact: Comment (remains fair) Hallucinations: Auditory, Other (no AVH) Delusions: Yes Delusion Type: Paranoid, Other (no delusions) Suicidal: Ideation (no SI) Homicidal: Ideation (no HI) Insight/Judgement Impaired. Vitals/IOs Vital Signs Date Time Temp Pulse Resp B/P Pulse Ox O2 Delivery O2 Flow Rate FiO2 11/17/16 06:20 97.9 99 16 125/79 98 Intake and Output 11/16/16 11/16/16 11/17/16 08:00 16:00 00:00 Intake Total 360 ml Balance 360 ml Assessment & Plan Problem List: (1) Schizoaffective disorder, bipolar type ICD Code: F25.0 (2) Hyperprolactinemia ICD Code: E22.1 Assessment & Plan Estimated LOS: 30 days still awaiting [facility] hospital placement. Justification for Cont. Inpt. Unable to care for self. Request HC Surrog/Guard Advoc?: Yes Garcia Rayo MD Nov 17, 2016 13:42
[2016-11-17 19:47] VITALS: BP 124/82; PULSE 108; RESP 16; TEMP 96.6; O2SAT 96
[2016-11-17] MEDS: QUEtiapine FUMARATE 200 MG TAB PO SCH (21:12)
[2016-11-18] MEDS: HALOPERIDOL 5 MG TAB PO SCH ×2 (08:34→21:39)
[2016-11-18] MEDS: ISONIAZID 300 MG TAB PO SCH (08:35)
[2016-11-18] MEDS: LITHIUM CARBONATE 300 MG CAP PO SCH ×3 (08:35→17:28)
--- NOTE | 2016-11-18 14:55 | HHI.PYPN ---
Subjective Remarks Patient was seen and case discussed with nursing. Patient is less irritable and more cooperative compared to last interview. She does remain very guarded and suspicious looking from side to side. Flat affect. Compliant with medications. Remained seclusive to room. Continues to deny psychotic symptoms. Denies suicidal ideations intent or plan Objective Alert: Yes [place]: Person, Place Mood: Calm Affect: Flat Memory Intact: Comment (fair) Hallucinations: Auditory (continues to deny) Delusions: Yes Delusion Type: Paranoid (paranoid during interview) Suicidal: Ideation (no SI) Homicidal: Ideation (no HI) Insight/Judgement Poor Vitals/IOs Vital Signs Date Time Temp Pulse Resp B/P Pulse Ox O2 Delivery O2 Flow Rate FiO2 11/17/16 19:47 96.6 108 16 124/82 96 Assessment & Plan Problem List: (1) Schizoaffective disorder, bipolar type ICD Code: F25.0 (2) Hyperprolactinemia ICD Code: E22.1 Assessment & Plan Continue current treatment plan Justification for Cont. Inpt. Patient will decompensate in a less restrictive setting Request HC Surrog/Guard Advoc?: Yes Nelosn Walters DO Nov 18, 2016 14:55
[2016-11-18 17:45] VITALS: BP 107/57; PULSE 106; RESP 17; TEMP 98.7; O2SAT 98
[2016-11-18] MEDS: diphenhydrAMINE HCL 50 MG CAP PO PRN (21:39)
[2016-11-18] MEDS: QUEtiapine FUMARATE 200 MG TAB PO SCH (21:39)
[2016-11-19 06:20] VITALS: BP 102/63; PULSE 73; RESP 16; TEMP 97.8; O2SAT 98
[2016-11-19] MEDS: HALOPERIDOL 5 MG TAB PO SCH ×2 (08:37→20:39)
[2016-11-19] MEDS: LITHIUM CARBONATE 300 MG CAP PO SCH ×3 (08:37→18:06)
[2016-11-19] MEDS: ISONIAZID 300 MG TAB PO SCH (08:37)
--- NOTE | 2016-11-19 13:39 | HHI.PYPN ---
Subjective Remarks Patient was seen and case discussed with nursing. Patient continues to improve. She is less irritable and in her words "less obnoxious." She is compliant with her medication. She hopes to be discharged to her friend's house instead of going home. Denies suicidal ideation intent or plan. Objective Alert: Yes [place]: Person, Place, Date, Situation Mood: Calm Affect: Blunted Memory Intact: Comment (fair) Hallucinations: Auditory (continues to deny) Delusions: Yes Delusion Type: Paranoid (less paranoid today) Suicidal: Ideation (no SI) Homicidal: Ideation (no HI) Insight/Judgement Improving Vitals/IOs Vital Signs Date Time Temp Pulse Resp B/P Pulse Ox O2 Delivery O2 Flow Rate FiO2 11/19/16 06:20 97.8 73 16 102/63 98 Assessment & Plan Problem List: (1) Schizoaffective disorder, bipolar type ICD Code: F25.0 (2) Hyperprolactinemia ICD Code: E22.1 Assessment & Plan Continue current treatment plan Justification for Cont. Inpt. Patient will decompensate in a less restrictive setting Request HC Surrog/Guard Advoc?: Yes Nelson Walters DO Nov 19, 2016 13:39
[2016-11-19 16:44] VITALS: BP 139/90; PULSE 104; RESP 16; TEMP 98.3; O2SAT 99
[2016-11-19] MEDS: QUEtiapine FUMARATE 200 MG TAB PO SCH (20:38)
[2016-11-20 05:26] VITALS: BP 107/58; PULSE 94; RESP 16; TEMP 98.3; O2SAT 98
[2016-11-20] MEDS: HALOPERIDOL 5 MG TAB PO SCH ×2 (09:00→21:23)
[2016-11-20] MEDS: ISONIAZID 300 MG TAB PO SCH (09:16)
[2016-11-20] MEDS: LITHIUM CARBONATE 300 MG CAP PO SCH ×3 (09:16→17:20)
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
[2016-11-20] MEDS: QUEtiapine FUMARATE 200 MG TAB PO SCH (21:22)
[2016-11-21 06:27] VITALS: BP 104/70; PULSE 88; RESP 18; TEMP 98.1; O2SAT 99
[2016-11-21] MEDS ORDERED: PALIPERIDONE PALMITATE 156 MG/ML SYRINGE IM SCH (09:00)
[2016-11-21] MEDS: ISONIAZID 300 MG TAB PO SCH (09:11)
[2016-11-21] MEDS: HALOPERIDOL 5 MG TAB PO SCH ×2 (09:11→21:02)
[2016-11-21] MEDS: LITHIUM CARBONATE 300 MG CAP PO SCH ×3 (09:12→17:05)
--- NOTE | 2016-11-21 11:52 | HHI.PYPN ---
Subjective Remarks Patient seen and examined. Chart reviewed. Case discussed with nurse, counselor and recreation therapist in treatment team. Per nursing staff, patient has been no behavioral problem. Counselor informs me that patient's mother can come pick the patient up tomorrow. Per recreation therapist, patient has been participating appropriately in groups. On my examination today , the patient continues to say that she would like to return home with her mother. Mood is good and affect is full and reactive. No SI or HI. Denies side effects from medications including Invega Sustenna booster dose which she received yesterday. Review of Systems Other No physical complaints today Objective Alert: Yes [place]: Person, Place, Date, Situation Mood: Calm Affect: Euthymic Memory Intact: Comment (fair) Hallucinations: Other (none) Delusions: No Delusion Type: Other (no delusional material) Suicidal: Ideation (No SI) Homicidal: Ideation (No HI) Insight/Judgement Perhaps improving somewhat Remarks No motor abnormalities noted. Thought process linear. Grooming and hygiene at least fair. Labs Labs reviewed. No new labs. Vitals/IOs Vital Signs Date Time Temp Pulse Resp B/P Pulse Ox O2 Delivery O2 Flow Rate FiO2 11/21/16 06:27 98.1 88 18 104/70 99 Assessment & Plan Problem List: (1) Schizoaffective disorder, bipolar type ICD Code: F25.0 (2) Hyperprolactinemia ICD Code: E22.1 Assessment & Plan Patient remains improved today. She is again requesting discharge home with her mother, and counselor tells me that mother is agreeable to this plan and would like to have the patient home. We will monitor the patient overnight, continuing her current psychotropics as ordered, with plan for discharge back to mother's care tomorrow barring some clinical worsening. Justification for Cont. Inpt. Final discharge planning Discharge Planning Monitor overnight. Anticipate discharge back to mother's care tomorrow barring some clinical worsening. Request HC Surrog/Guard Advoc?: Yes Brayden Haney MD Nov 21, 2016 11:52
[2016-11-21 17:53] VITALS: BP 134/91; PULSE 105; RESP 16; TEMP 97.6; O2SAT 100
[2016-11-21] MEDS: QUEtiapine FUMARATE 200 MG TAB PO SCH (21:02)
[2016-11-22 05:53] VITALS: BP 107/60; PULSE 86; RESP 18; TEMP 97.8; O2SAT 96
[2016-11-22] MEDS ORDERED: SERO400T PO (08:30)
[2016-11-22] MEDS ORDERED: PALI156P IM (08:30)
[2016-11-22] MEDS ORDERED: HALO5TAB PO (08:30)
--- NOTE | 2016-11-22 08:30 | HHI.DS ---
Psychiatry Discharge Summary Inpatient Psychiatric care?: Yes Advance Directive: No Reason Not Provided: Due to Patient Condition Mental Health AdvanceDirective: No Health Care Proxy: No Admission Admission Date Sep 24, 2016 at 11:56 Admission Diagnosis: (1) Schizoaffective disorder, bipolar type ICD Code: F25.0 Brief History Ms. Hooks is a 20-year-old -[place] female with a history of psychotic disorder, who presents on a voluntary basis for psychiatric evaluation. The patient was placed under a James Act by the ED physician and evaluated by the psychiatric nurse practitioner who noted that the patient was agitated and threatening and hyper-sexual and required ETOs in the ED. Nurse practitioner recommended admission to the inpatient psychiatric unit. Reviewing the electronic medical record, I note that the patient was admitted here most recently in June of [address] Champagne, during which visit she was stabilized on Invega Sustenna and Seroquel 200 mg at night. The patient was seen and examined with nurse and counselor. Chart reviewed. Case discussed with nursing staff. On my examination today, the patient presents as quite bizarre and oddly related. She is extremely paranoid and refuses to close the door for the duration of the interview. She appears frankly internally stimulated and casts her eyes about during the interview. She is fairly sarcastic and distractible. She is hyper-sexual and makes sexually inappropriate comments to her male nurse. She says "I have a mind and a heart and a soul and will always be in heaven and hell." She is quite discharge focused. When I endeavored to obtain possible source of collateral she gives me her mother's full name and address and she is generally overly detailed in the history that she provides. She concludes the interview by conducting an elaborate ritual in which she places her hands in a prayerful position and bows deeply before stalking out of the room. Psychiatric interview is somewhat limited because of her degree of psychiatric decompensation. Per nursing staff, the patient received Invega Sustenna 234 mg exactly 1 week ago. Tobacco Use In Past 30 Days: 5 or More Cigarettes/Day Alcohol Use: 2-4 Times Per Month Hospital Course Patient was admitted to a locked, inpatient psychiatric unit. A general medical consultation was obtained. Appropriate precautions were in place throughout patient's hospital stay. Patient was seen and examined daily on the unit by psychiatry and also visited by counselor. Medications were adjusted. Patient was continued on long-acting Invega Sustenna and Seroquel was added and titrated to effect. Patient had inadequate response with regards to her psychosis from even these 2 antipsychotic agents and so required addition of Haldol. Subsequent medication adjustments were aimed in part at reducing antipsychotic polypharmacy, although the patient does remain on 3 antipsychotics at the time of discharge. Long-term goal is for further medication adjustments allowing for return to antipsychotic monotherapy, if possible. [place] was added for mood stabilization. Patient tolerated medications well without significant side effects. Patient slowly improved on the inpatient psychiatric unit. She experienced resolution of her psychotic decompensation. Behavior improved with the benefit of medication. The patient was able to be transferred to the lower acuity psychiatric unit. Towards the end of her hospital stay, the patient had softening of her delusions regarding her mother and expressed a strong desire to return home with her mother, which plan was facilitated by counselor. On the day of discharge: Patient seen and examined. Chart reviewed. Case discussed with nursing staff who reports patient has been no behavioral problem on the unit. On my examination today, the patient is calm and pleasant. She is requesting discharge from the inpatient psychiatric unit today. She denies any suicidal or homicidal ideation. Mood is stable. No depressive or hypomanic/manic symptoms noted. She denies any audiovisual hallucinations, and I can elicit no delusional beliefs. She denies side effects from medications. She has no physical complaints. Weighing the acute, chronic, and protective factors and based on the available evidence, I barrel brander to a reasonable degree of medical certainty that the patient is at low imminent risk of harm to self or others from a mental illness as defined under the James act and her level of function is adequate for outpatient care. The patient has maximized benefit from this inpatient psychiatric hospital stay and so will be discharged home into her mother's care today with home nursing. Patient is to follow-up psychiatrically as arranged by counselor. She is also to follow-up with primary care. I have counseled the patient regarding warning signs for need to return to the psychiatric emergency room as part of a general safety plan. Results Blood Pressure 107 / 60 Vital Signs Date Time Temp Pulse Resp B/P Pulse Ox O2 Delivery O2 Flow Rate FiO2 11/22/16 05:53 97.8 86 18 107/60 96 Item Value Date Time White Blood Count 7.0 TH/MM3 11/03/16 0836 Hemoglobin 12.7 GM/DL 11/03/16 0836 Platelet Count 359 TH/MM3 11/03/16 0836 Sodium Level 140 MEQ/L 11/03/16 0836 Potassium Level 3.7 MEQ/L 11/03/16 0836 Chloride Level 106 MEQ/L 11/03/16 0836 Carbon Dioxide Level 24.8 MEQ/L 11/03/16 0836 Blood Urea Nitrogen 8 MG/DL 11/03/16 0836 Creatinine 0.94 MG/DL 11/03/16 0836 Aspartate Amino Transf (AST/SGOT) 14 U/L L 11/03/16 0836 Alanine Aminotransferase (ALT/SGPT) 24 U/L 11/03/16 0836 Alkaline Phosphatase 104 U/L 11/03/16 0836 Thyroid Stimulating Hormone 3rd Gen 0.734 uIU/ML 09/27/16 0718 Human Chorionic Gonadotropin, Quant LESS THAN 1 MIU/ML 09/27/16 0718 Prolactin 152 ng/mL H 09/26/16 0713 [place] Level 0.6 MEQ/L 11/09/16 0551 Summary of Procedures None done Imaging Last Impressions Brain MRI 10/05/16 0000 Signed Impressions: Service Date/Time: September 14:12 - CONCLUSION: No evidence of pituitary mass. Unremarkable MRI of the brain with and without contrast. Vladimir Lockhart MD Chest X-Ray 09/26/16 0000 Signed Impressions: Service Date/Time: Monday, September 26, 2016 14:50 - CONCLUSION: Normal examination for a patient of this age. Chalino Richter MD Pending results at discharge: No Medications # of Antipsychotic meds at D/C: 3 Appropriate >1 Antipsych meds?: 4 Approp Antipsych med options 1 - Minimum of three failed multiple trials of monotherapy. 2 - Documented plan to taper to monotherapy due to previous use of multiple meds OR cross-taper in progress at D/C. 3 - Documentation of augmentation of Clozapine. 4 - Justification other than those listed in allowable values 1-3, document here : As noted above. Discharge Discharge Date: Nov 22, 2016 Discharge Diagnosis: (1) Schizoaffective disorder, bipolar type Diagnosis: Principal (stabilized) ICD Code: F25.0 GAF on discharge is 55. Mental Status Exam at Disch Patient is casually dressed. She is fairly well groomed and maintaining basic hygiene. She is awake and alert and oriented to person and hospital at least. No motor abnormalities noted. No hand tremor, no dystonia, no dyskinesia. Steady gait and station. Speech is within normal limits for rate, tone and volume. Language and fund of knowledge seem average. Mood is stable and affect is somewhat blunted. Thought processes linear. No loosening of associations. No evident delusions. Denies audiovisual hallucinations. Denies suicidal or homicidal ideation. Insight and judgment are fair to poor. Pt Condition on Discharge: Stable Discharge Disposition: Disch w/ Home Health Serv Discharge Instructions Diet Instructions: As Tolerated, No Restrictions Activities you can perform: Weight Bearing as Raquel Scheduled Appointment: Kike Hamilton Appointment Date: Nov 28, 2016 Appointment Time: 7:30am New Orders: PROLACTIN - 1 Week New Medications: Haloperidol (Haloperidol) 5 Mg Tab 7.5 MG PO BID Mental Health Days 15 Ref 1 TAB Paliperidone Palmitate Inj (Invega Sustenna Inj) 156 Mg/Ml Inj 156 MG IM Q28D This dose of Invega Sustenna is due on 12/19/2016. Mental Health # 1 Ref 0 VIAL Quetiapine (Seroquel) 400 Mg Tab 400 MG PO HS Please discuss with your outpatient provider adjusting this and other antipsychotic medications to reduce polypharmacy. Mental Health Days 15 Ref 1 TAB Isoniazid (Isoniazid) 300 Mg Tab 300 MG PO DAILY Prophylaxis Days 15 Ref 1 TAB [place] Carbonate ([place] Carbonate) 300 Mg Cap 300 MG PO TID Mental Health Days 15 Ref 1 CAP Discharge Time > 30 minutes Discharge/Advance Care Plan Health Problems: (1) Schizoaffective disorder, bipolar type (2) Hyperprolactinemia Goals to promote your health * To prevent worsening of your condition and complications * To maintain your health at the optimal level Directions to meet your goals Take your medications as prescribed Follow your dietary instruction Follow activity as directed Keep your appointments as scheduled Take your immunizations and boosters as scheduled If your symptoms worsen call your PCP, if no PCP go to Urgent Care Center or Emergency Room For 19/03 questions related to your inpatient stay or results of tests pending at discharge, please contact Dr. Brayden Haney at Smoking is Dangerous to Your Health. Avoid second hand smoking Brayden Haney MD Nov 22, 2016 08:30
--- NOTE | 2016-11-22 08:32 | HHI.FF ---
Face to Face Verification Diagnosis: (1) Schizoaffective disorder, bipolar type Home Health Nursing Order: Signs/symptoms of disease process Medication education-adverse effect Instructions: Long-acting injectable antipsychotic administration. I have seen patient Jame Hooks on 11/22/16. My clinical findings support the need for the requested home health care services because: Need for psychosocial assistance Injectable med education/admin I certify that my clinical findings support that this patient is homebound because: Need for psychosocial assistance Brayden Haney MD Nov 22, 2016 08:32
[2016-11-22] MEDS: HALOPERIDOL 5 MG TAB PO SCH (09:01)
[2016-11-22] MEDS: LITHIUM CARBONATE 300 MG CAP PO SCH (09:04)
[2016-11-22] MEDS: ISONIAZID 300 MG TAB PO SCH (09:05)
== END 2016-11-22 10:35 | disposition home health service (06) | DRG 885 ==
LOC: NEPA 13:37 → NEDA 09-24 11:56 → H260 09-24 13:50 → H270 09-24 14:00 → H260 10-28 16:19
PROVIDERS: ADMIT Psychiatry & Neurology Psychiatry; ATTEND Psychiatry & Neurology Psychiatry
DX: F25.0 Schizoaffective disorder, bipolar type (principal); E22.1 Hyperprolactinemia; Z91.19 Patient's noncompliance with other medical treatment and regimen; E87.6 Hypokalemia; R00.0 Tachycardia, unspecified; R76.11 Nonspecific reaction to tuberculin skin test without active tuberculosis; R11.2 Nausea with vomiting, unspecified; R32 Unspecified urinary incontinence; F41.9 Anxiety disorder, unspecified; Z72.0 Tobacco use
CPT/HCPCS: 70553; 71010; 76937; 80048; 80053; 80061; 80178; 80307; 80320; 81001; 83036; 83735; 84146; 84443; 84702; 84703; 85025; 93005; 96372; 96374; A9579; J1200; J1630; J2060; J2426; Q0163

== ENCOUNTER 2017-02-26 10:56 | Inpatient (IN) | payer MEDICAID, OTHER ==
[~2017-02-26] VITALS: Ht 160 cm; Wt 91.8 kg
[~2017-02-26 10:56] MED LIST changes: +HALO5TAB PO; +ISON300T3 PO; +LITH300C2 PO; +PALI156P IM; +SERO400T PO; -SERT50 PO; -ZYPR10TA PO
[2017-02-26 10:58] VITALS: BP 135/87; PULSE 114; RESP 20; TEMP 98.3; O2SAT 98
[2017-02-26 11:36] VITALS: BP 141/95; PULSE 128; RESP 16; O2SAT 99
[2017-02-26 11:52] LABS: AUTOMATED NEUTROPHIL # 4.7 TH/MM3 (1.8-7.7); BASOPHIL % 0.5 % (0.0-2.0); EOSINOPHIL # 0.1 TH/MM3 (0-0.4); EOSINOPHIL % 1.3 % (0.0-4.0); HEMATOCRIT 40.5 % (35.0-46.0); HEMO FLAGS DIFF FINAL; LYMPH % 26.3 % (9.0-44.0); LYMPHOCYTE # 1.8 TH/MM3 (1.0-4.8); MEAN CELL VOLUME 86.6 FL (80.0-100.0); MEAN CORPUSCULAR HEMOGLOBIN 27.7 PG (27.0-34.0); MONO % 4.5 % (0.0-8.0); NEUT % 67.4 % (16.0-70.0); PLATELET COUNT 338 TH/MM3 (150-450); RED BLOOD COUNT 4.68 MIL/MM3 (4.00-5.30); RED CELL DISTRIBUTION WIDTH 13.2 % (11.6-17.2)
[2017-02-26 11:53] LABS: BACTERIA, URINE RARE /hpf; BLOOD, URINE NEG (NEG); COMMENT (UR) CULT NOT INDICATED; CULTURE IF INDICATED CULT NOT INDICATED; GLUCOSE,URINE NEG (NEG); KETONE, URINE NEG (NEG); NITRITE,URINE NEG (NEG); SQUAMOUS EPITHELIAL CELL URINE 1 /hpf (0-5); URINE COLOR LIGHT-YELLOW (YELLW/STRAW)
--- NOTE | 2017-02-26 12:14 | PD ---
HPI Chief Complaint: Psychiatric Symptoms Time Seen by Provider: 11:30 Travel History International Travel<30 days: No Contact w/Intl Traveler<30days: No Traveled to known affect area: No History of Present Illness HPI Patient is a 21-year-old female presenting to the emergency department for psychiatric evaluation voluntarily. Patient states that she was at home with her adoptive mother today when she got frustrated that she wasn't getting any new puppy. She is requesting to go to an assisted living facility. She adamantly denies hearing voices but continues to repeat that she is a mammogram and is the light. She denies any suicidal or homicidal ideations. She was brought into the emergency department per report by her adoptive mother. Patient states that she does feel like everyone is trying to kill her. She denies any physical complaints at this time. She states that she hasn't been eating and drinking well because she doesn't like the food that they're feeding her. PFSH Past Medical History Hx Anticoagulant Therapy: No Anxiety: Yes Depression: Yes Cancer: No Cardiovascular Problems: No Chemotherapy: No Cerebrovascular Accident: No Diabetes: No Endocrine: No Genitourinary: No Immune Disorder: No Musculoskeletal: No Neurologic: No Psychiatric: Yes Reproductive: No Respiratory: No Schizophrenia: Yes ?: Not LMP: 02/18/17 : 0 Para: 0 Miscarriage: 0 : 0 Social History Alcohol Use: No Tobacco Use: No Substance Use: No Allergies-Medications (Allergen,Severity, Reaction): Coded Allergies: No Known Allergies (Unverified , 09/23/16) Reported Meds & Prescriptions Reported Meds & Active Scripts Active Seroquel (Quetiapine Fumarate) 400 Mg Tab 400 Mg PO HS 15 Days Please discuss with your outpatient provider adjusting this and other antipsychotic medications to reduce polypharmacy. Invega Sustenna Inj (Paliperidone Palmitate) 156 Mg/Ml Inj 156 Mg IM Q28D This dose of Invega Sustenna is due on 12/19/2016. Haloperidol 5 Mg Tab 7.5 Mg PO BID 15 Days [place] Carbonate 300 Mg Cap 300 Mg PO TID 15 Days Isoniazid 300 Mg Tab 300 Mg PO DAILY 15 Days Review of Systems Except as stated in HPI: all other systems reviewed are Neg Psychiatric: Positive: Disorder of Thought, Mood Disorder Physical Exam Narrative GENERAL: Overweight, well-developed, alert female. SKIN: Focused skin assessment warm/dry. HEAD: Atraumatic. Normocephalic. EYES: Pupils equal and round. No scleral icterus. No injection or drainage. ENT: No nasal bleeding or discharge. Mucous membranes pink and moist. NECK: Trachea midline. No JVD. CARDIOVASCULAR: Tachycardic. No murmur appreciated. RESPIRATORY: No accessory muscle use. Clear to auscultation. Breath sounds equal bilaterally. GASTROINTESTINAL: Abdomen soft, non-tender, nondistended. Hepatic and splenic margins not palpable. MUSCULOSKELETAL: No obvious deformities. No clubbing. No cyanosis. No edema. NEUROLOGICAL: Awake and alert. No obvious cranial nerve deficits. Motor grossly within normal limits. Normal speech. PSYCHIATRIC: Appropriate mood and affect; insight and judgment impaired. Delusional thought process Data Data Last Documented VS Vital Signs Date Time Temp Pulse Resp B/P Pulse Ox O2 Delivery O2 Flow Rate FiO2 02/26/17 12:55 122 18 100 Room Air 02/26/17 11:36 141/95 02/26/17 10:58 98.3 Orders Complete Blood Count With Diff (02/26/17 11:28) Comprehensive Metabolic Panel (02/26/17 11:28) Thyroid Stimulating Hormone (02/26/17 11:28) Urinalysis - C+S If Indicated (02/26/17 11:28) Ed Urine Pregnancytest Poc (02/26/17 11:28) Iv Access Insert/Monitor (02/26/17 11:28) Psych Screen (02/26/17 11:28) Drug Screen, Random Urine (02/26/17 11:28) Electrocardiogram (02/26/17 ) Lorazepam (Ativan) (02/26/17 13:00) Labs Laboratory Tests Test 02/26/17 11:40 White Blood Count 7.0 TH/MM3 Red Blood Count 4.68 MIL/MM3 Hemoglobin 13.0 GM/DL Hematocrit 40.5 % Mean Corpuscular Volume 86.6 FL Mean Corpuscular Hemoglobin 27.7 PG Mean Corpuscular Hemoglobin 32.0 % Concent Red Cell Distribution Width 13.2 % Platelet Count 338 TH/MM3 Mean Platelet Volume 7.5 FL Neutrophils (%) (Auto) 67.4 % Lymphocytes (%) (Auto) 26.3 % Monocytes (%) (Auto) 4.5 % Eosinophils (%) (Auto) 1.3 % Basophils (%) (Auto) 0.5 % Neutrophils # (Auto) 4.7 TH/MM3 Lymphocytes # (Auto) 1.8 TH/MM3 Monocytes # (Auto) 0.3 TH/MM3 Eosinophils # (Auto) 0.1 TH/MM3 Basophils # (Auto) 0.0 TH/MM3 CBC Comment DIFF FINAL Differential Comment Urine Color LIGHT-YELLOW Urine Turbidity CLEAR Urine pH 7.0 Urine Specific [place] 1.006 Urine Protein NEG mg/dL Urine Glucose (UA) NEG mg/dL Urine Ketones NEG mg/dL Urine Occult Blood NEG Urine Nitrite NEG Urine Bilirubin NEG Urine Urobilinogen LESS THAN 2.0 MG/DL Urine Leukocyte Esterase NEG Urine RBC LESS THAN 1 /hpf Urine WBC 1 /hpf Urine Squamous Epithelial 1 /hpf Cells Urine Bacteria RARE /hpf Microscopic Urinalysis Comment CULT NOT INDICATED Sodium Level 141 MEQ/L Potassium Level 3.8 MEQ/L Chloride Level 110 MEQ/L Carbon Dioxide Level 25.5 MEQ/L Anion Gap 6 MEQ/L Blood Urea Nitrogen 7 MG/DL Creatinine 0.90 MG/DL Estimat Glomerular Filtration 95 ML/MIN Rate Random Glucose 111 MG/DL Calcium Level 8.9 MG/DL Total Bilirubin 0.3 MG/DL Aspartate Amino Transf 14 U/L (AST/SGOT) Alanine Aminotransferase 15 U/L (ALT/SGPT) Alkaline Phosphatase 89 U/L Total Protein 7.7 GM/DL Albumin 3.7 GM/DL Thyroid Stimulating Hormone 1.540 uIU/ML 3rd Gen Urine Opiates Screen NEG Urine Barbiturates Screen NEG Urine Amphetamines Screen NEG Urine Benzodiazepines Screen NEG Urine Cocaine Screen NEG Urine Cannabinoids Screen NEG [facility] Medical Decision Making Medical Screen Exam Complete: Yes Emergency Medical Condition: Yes Medical Record Reviewed: Yes Interpretation(s) Vital Signs Date Time Temp Pulse Resp B/P Pulse Ox O2 Delivery O2 Flow Rate FiO2 02/26/17 11:36 128 16 141/95 99 Room Air 02/26/17 10:58 98.3 114 20 135/87 98 Differential Diagnosis Mood disorder versus substance abuse versus electrolyte abnormality versus psychosis versus other Narrative Course Patient is a 21-year-old female presenting to emergency Department voluntarily for psychiatric evaluation. Patient reports wanting to be in a longterm/[facility]. She denies any hallucinations but continually talks about being a mammogram and being the light. On review of medical records patient has a history of psychotic disorder, paranoia, schizoaffective disorder. Mental health screening discussed with the patient. Psychiatric screen ordered. Patient requested to go into the big aroma because she will be lonely in the room that she is in by herself. She denies suicidal or homicidal ideations but she reports that she does feel as if everyone is trying to kill her. Labs reviewed and no acute findings identified. Patient is tachycardic, she is restless and excitable. Her labs are unremarkable, she has no chest pain complaints. This could be a side effect of the Invega. EKG shows sinus tachycardia with a rate of 120. Pt given ativan PO. Discussed with Dr. Rodgers. Urine drug screen is pending, patient is medically cleared for psychiatric evaluation at this time. Diagnosis Primary Impression: Medical clearance for psychiatric admission Condition: Stable Kailyn Ernst Feb 26, 2017 12:14
[2017-02-26 12:20] LABS: ALKALINE PHOSPHATASE 89 U/L (45-117); TOTAL BILIRUBIN ADULT 0.3 MG/DL (0.2-1.0)
[2017-02-26 12:21] LABS: ALT (GPT) 15 U/L (10-53); ANION GAP 6 MEQ/L (5-15); AST (GOT) 14 U/L (15-37); BICARBONATE 25.5 MEQ/L (21.0-32.0); BLOOD UREA NITROGEN 7 MG/DL (7-18); CHLORIDE 110 MEQ/L (98-107); GLOMERULAR FILTRATION RATE 95 ML/MIN (>89); POTASSIUM 3.8 MEQ/L (3.5-5.1); SODIUM (NA) 141 MEQ/L (136-145)
[2017-02-26 12:55] VITALS: PULSE 122; RESP 18; O2SAT 100
[2017-02-26] MEDS ORDERED: LORazepam 1 MG TAB PO ONE (13:00)
[2017-02-26 13:08] LABS: AMPHETAMINE, URINE NEG (NEG); BARBITURATES, URINE NEG (NEG); COCAINE, URINE NEG (NEG)
[2017-02-26 13:33] VITALS: BP 152/90
[2017-02-26 14:46] VITALS: BP 128/96; PULSE 111; RESP 20; TEMP 96.6; O2SAT 100
[2017-02-26] MEDS ORDERED: LORazepam 0.5 MG TAB PO PRN (15:45)
[2017-02-26] MEDS ORDERED: LORazepam 1 MG TAB PO PRN (15:45)
[2017-02-26] MEDS ORDERED: NICOTINE 21 MG/24 HR PATCH T-DERMAL SCH (15:45)
[2017-02-26] MEDS ORDERED: LORazepam 2 MG/ML VIAL IM PRN ×2 (15:45)
[2017-02-26] MEDS ORDERED: ACETAMINOPHEN 325 MG TAB PO PRN (15:45)
[2017-02-26] MEDS ORDERED: MAGNESIUM HYDROXIDE SUSP 30 ML CUP PO PRN (15:45)
[2017-02-26] MEDS ORDERED: ALUMINUM/MAGNESIUM/SIMETH 30 ML CUP PO PRN (15:45)
[2017-02-26] MEDS ORDERED: PILL SPLITTER OTHER PRN (16:15)
[2017-02-26] MEDS: LITHIUM CARBONATE 300 MG CAP PO SCH (17:24)
[2017-02-26 17:30] VITALS: BP 135/95; PULSE 92; RESP 18; TEMP 98.6; O2SAT 100
[2017-02-26] MEDS: QUEtiapine FUMARATE 200 MG TAB PO SCH (21:58)
[2017-02-26] MEDS: HALOPERIDOL 5 MG TAB PO SCH (21:58)
[2017-02-27 06:08] VITALS: BP 106/59; PULSE 81; RESP 18; TEMP 98.1
[2017-02-27 07:42] LABS: ANION GAP 7 MEQ/L (5-15); BLOOD UREA NITROGEN 7 MG/DL (7-18); CHLORIDE 109 MEQ/L (98-107); GLOMERULAR FILTRATION RATE 109 ML/MIN (>89); HDL CHOLESTEROL 43.8 MG/DL (40.0-60.0); LDL CHOLESTEROL 87 MG/DL (0-99); POTASSIUM 3.6 MEQ/L (3.5-5.1); SODIUM (NA) 142 MEQ/L (136-145)
[2017-02-27] MEDS ORDERED: PNEUMOCOCCAL POLYVALENT INJ 25 MCG/0.5 ML SYR IM ONE (10:00)
[2017-02-27] MEDS: HALOPERIDOL 5 MG TAB PO SCH ×2 (10:04→20:20)
[2017-02-27] MEDS: LITHIUM CARBONATE 300 MG CAP PO SCH ×3 (10:04→17:39)
--- NOTE | 2017-02-27 12:42 | HHI.HP ---
Provisional Diagnosis Admission Date Feb 26, 2017 at 15:43 [place] I. Schizophrenia, chronic paranoid type Certification of Person's Competence To Provide Express and Informed Consent I have personally examined Jame Hooks , a person being served at [facility] on, Feb 27, 2017 12:34. Express and informed consent means consent voluntarily given in writing, by a competent person, after sufficient explanation and disclosure of the subject matter involved to enable the person to make a knowing and willful decision without any element of force, fraud, deceit, duress, or other form of constraint or coercion. This person is 18 years of age or older, is not now known to be incompetent to consent to treatment with a guardian advocate, and does not have a health care surrogate or proxy currently making medical treatment decisions. I have found this person to be one of the following: [x] Competent to provide express and informed consent, as defined above, for voluntary admission to this facility and is competent to provide express and informed consent for treatment. He/she has the consistent capacity to make well reasoned, willful, and knowing decisions concerning his or her medical or mental health treatment. The person fully and consistently understands the purpose of the admission for examination/placement and is fully capable of personally exercising all rights assured [place] [x] Incompetent to provide express and informed consent to voluntary admission, and this is incompetent to provide express and informed consent to treatment. The person must be transferred to involuntary status and a petition for a guardian advocate filed with the Circuit Court. [] Refusing to provide express and informed consent to voluntary admission but is competent to provide express and informed consent for treatment. The person must be discharged or transferred to involuntary status. Form shall be completed within 24 hours of a person's arrival at the receiving facility and filed in the clinical record of each person: 1. Admitted on a voluntary basis 2. Permitted to provide express and informed consent to his/her own treatment 3. Allowed to transfer from involuntary to voluntary status 4. Prior to permitting a person to consent to his or her own treatment after having been previously found incompetent to consent to treatment. History of Present Illness Capacity: Lacks Capacity HPI 21-year-old female known to the psychiatry staff from previous psychiatric emergency room visits and previous psychiatric hospitalizations. Apparently brought in last night by her adoptive mother due to the patient's confusion. Patient exhibiting significant looseness of associations and paranoid ideations. She does state she believes other people are trying to kill her. Most of her comments are nonsensical. She is not competent to consent for treatment and does not appear to understand the need for treatment, even though she was admitted voluntarily. Review of Systems Except as stated in HPI: all other systems reviewed are Neg Past Psych History Psychological trauma history Unknown Violence risk - others (6 mos) Minimal Violence risk - self (6 mos) High Substance Abuse History Drugs/Alcohol past 12 months Denied Past Family Social History Coded Allergies: No Known Allergies (Unverified , 09/23/16) Active Scripts Quetiapine (Seroquel)400 Mg Ifj329 Mg PO HS 15 Days Ref 1 Please discuss with your outpatient provider adjusting this and other antipsychotic medications to reduce polypharmacy. Prov:Brayden Haney MD 11/22/16 Paliperidone Palmitate Inj (Invega Sustenna Inj)156 Mg/Ml [id number] Mg IM Q28D #1 VIAL Ref 0 This dose of Invega Sustenna is due on 12/19/2016. Prov:Brayden Haney MD 11/22/16 Haloperidol 5 Mg Tab7.5 Mg PO BID 15 Days Ref 1 Prov:Brayden Haney MD 11/22/16 [place] Carbonate 300 Mg Efs937 Mg PO TID 15 Days Ref 1 Prov:Brayden Haney MD 10/26/16 Isoniazid 300 Mg Tsv795 Mg PO DAILY 15 Days Ref 1 Prov:Brayden Haney MD 10/26/16 Current Medications Medications (Trade) Dose Ordered Sig/Rob Route Start Time Stop Time Status Last Admin (Haldol) 7.5 mg BID PO 02/26/17 21:00 02/27/17 10:04 ([place] Carbonate) 300 mg TID PO 02/26/17 18:00 02/27/17 10:04 (SEROquel) 400 mg HS PO 02/26/17 21:00 02/26/17 21:58 (Ativan) 1 mg Q6H PRN PO 02/26/17 15:45 (Ativan Inj) 1 mg Q6H PRN IM 02/26/17 15:45 (Tylenol) 650 mg Q4H PRN PO 02/26/17 15:45 (Milk Of Magnesia Liq) 30 ml DAILY PRN PO 02/26/17 15:45 (Mag-Al Plus Susp Liq) 30 ml Q6H PRN PO 02/26/17 15:45 (Pill Splitter) 1 ea UNSCH PRN OTHER 02/26/17 16:15 Family History Reportedly positive for psychotic illness. Social History Unemployed. Receives Social Security disability. Very sleepy states she lives in an GROUP HOME or that she lives with her adoptive mother. Also described is homeless. Denies alcohol or substance abuse. Patient's Strengths (min. 2) Resilient and has access to healthcare. Physical Exam GENERAL: SKIN: Warm and dry. HEAD: Normocephalic. EYES: No scleral icterus. No injection or drainage. NECK: Supple, trachea midline. No JVD or lymphadenopathy. CARDIOVASCULAR: Regular rate and rhythm without murmurs, gallops, or rubs. RESPIRATORY: Breath sounds equal bilaterally. No accessory muscle use. GASTROINTESTINAL: Abdomen soft, non-tender, nondistended. MUSCULOSKELETAL: No cyanosis, or edema. BACK: Nontender without obvious deformity. No CVA tenderness. Vital Signs Vital Signs Date Time Temp Pulse Resp B/P Pulse Ox O2 Delivery O2 Flow Rate FiO2 02/27/17 06:08 98.1 81 18 106/59 02/26/17 17:30 100 02/26/17 14:46 Room Air I/O 02/26/17 02/26/17 02/27/17 08:00 16:00 00:00 Intake Total 1012 ml Balance 1012 ml Mental Status Examination Speech: Incoherent Orientation: Person Memory: Impaired (describe) Thought Process: Loose Association Thought Content: Bizarre thinking, Paranoid Hallucination Type: Auditory Attention and Concentration: Easily Distracted Suicidal Ideation: Yes Previous Suicide Attempts: No Homicidal Ideation: No Previous Homicide Attempts: No Insight: Poor Judgment: Impulsive Affect: Anxious Affect if Inappropriate: Blunt Mood: Appropriate, Sad Motor Activity: Normal gait Assessment & Plan Problem List: (1) Schizophrenia, paranoid type ICD Code: F20.0 Assessment & Plan Estimated LOS: days patient remains grossly psychotic, nonsensical in her speech, exhibiting loose associations and paranoid ideation. Feels others are going to kill her. Reports auditory hallucinations of a command and derogatory nature. Apparently patient is homeless. She is completely unable to care for herself. This physician feels she is at high risk for self-harm due to the command auditory hallucinations which are critical of her and her own disorganized thought process. Patient being admitted for evaluation and treatment. She'll be started back on antipsychotic medicine and we will hopefully be able to put her on long-acting antipsychotic medicine. She will receive a CBC and comprehensive metabolic profile to ensure no infectious or metabolic process is causing her aggravating her psychosis. Likewise her TSH will be evaluated to be sure her thyroid is not causing this psychotic reaction. Additionally, we will check vitamin B-12 and vitamin D levels to determine if they are creating psychosis. She will receive an EKG to evaluate her ability to tolerate antipsychotic medicines which might interfere with her cardiac conduction. We will obtain a consult for second opinion as the patient does not appear competent to voluntarily accept treatment. Spoke to the patient 's nurse regarding her behavior. We'll ask the case monitor to obtain further information and help with disposition planning. Garcia Rayo MD Feb 27, 2017 12:42
--- NOTE | 2017-02-27 13:30 | EKG ---
Date Performed: 02/26/2017 Time Performed: 13:03:26 PTAGE: 21 years EKG: SINUS TACHYCARDIA NONSPECIFIC T-WAVE ABNORMALITY ABNORMAL RHYTHM ECG PREVIOUS TRACING : 09/25/2016 13.24 compared with previous EKG sinus tachycardia is new DOCTOR: Jayy Pardo Interpretating Date/Time 02/27/2017 13:23:26
[2017-02-27 18:55] VITALS: BP 128/78; PULSE 112; RESP 19; TEMP 97.7; O2SAT 100
[2017-02-27 19:28] LABS: HEMOGLOBIN A1a 1.3 %; HEMOGLOBIN A1b 1.4 %; HEMOGLOBIN Ao 87.3 %; HEMOGLOBIN LA1C 1.4 %; HEMOGLOBIN P3 2.9 %
[2017-02-27] MEDS: QUEtiapine FUMARATE 200 MG TAB PO SCH (20:20)
[2017-02-28 05:47] VITALS: BP 118/75; PULSE 106; RESP 18; TEMP 97.1; O2SAT 99
[2017-02-28] MEDS: HALOPERIDOL 5 MG TAB PO SCH (08:27)
[2017-02-28] MEDS: LITHIUM CARBONATE 300 MG CAP PO SCH ×3 (08:27→18:16)
--- NOTE | 2017-02-28 12:18 | HHI.PYPN ---
Subjective Remarks Patient remains psychotic with loose associations and paranoid delusions. She appears to be responding to internal stimuli. She has yet to make significant progress on antipsychotic medication. Review of Systems Except as stated in HPI: all other systems reviewed are Neg Objective Alert: Yes [place]: Person, Place Mood: Calm Affect: Restricted Memory Intact: Immediate, Recent, Remote Hallucinations: Auditory Delusions: Yes Delusion Type: Paranoid, Other Suicidal: Ideation (no) Homicidal: Ideation (no) Insight/Judgment Impaired Vitals/IOs Vital Signs Date Time Temp Pulse Resp B/P Pulse Ox O2 Delivery O2 Flow Rate FiO2 02/28/17 05:47 97.1 106 18 118/75 99 02/26/17 14:46 Room Air Assessment & Plan Problem List: (1) Schizophrenia, paranoid type ICD Code: F20.0 Assessment & Plan Estimated LOS: days will titrate dose of antipsychotic therapy. Reviewed laboratory results. Encourage patient to participate in milieu therapies. Justification for Cont. Inpt. Will decompensate at lower level of care. Garcia Rayo MD Feb 28, 2017 12:18
--- NOTE | 2017-02-28 15:15 | PD.PSY.CON ---
Provisional Diagnosis Admission Date Feb 26, 2017 at 15:43 [place] I. Schizophrenia, chronic paranoid type History of Present Illness Service Psychiatry Consult Requested By Primary Care Physician No Primary Care Physician HPI 21-year-old female known to the psychiatry staff from previous psychiatric emergency room visits and previous psychiatric hospitalizations. Apparently brought in last night by her adoptive mother due to the patient's confusion. Patient exhibiting significant looseness of associations and paranoid ideations. She does state she believes other people are trying to kill her. Most of her comments are nonsensical. She is not competent to consent for treatment and does not appear to understand the need for treatment, even though she was admitted voluntarily. 02/28/17 Above note dictated by Dr. Rayo reviewed and agreed with. Patient seen by me in her room with floor staff. Patient laying in bed saying she has head that she is a mermaid that she has the ability to transform herself into a breathing dragon when upset. Showing no insight into her disease denying she has a mental illness. Dr. Agustin first opinion petition supporting [employer] act. I agree. Patient meets criteria for involuntary psychiatric hospitalization under the James act. Thus I will cosign second opinion petition supporting James act Past Family Social History Coded Allergies: No Known Allergies (Unverified , 09/23/16) Active Scripts Quetiapine (Seroquel)400 Mg Fhd999 Mg PO HS 15 Days Ref 1 Please discuss with your outpatient provider adjusting this and other antipsychotic medications to reduce polypharmacy. Prov:Brayden Haney MD 11/22/16 Paliperidone Palmitate Inj (Invega Sustenna Inj)156 Mg/Ml Mrx140 Mg IM Q28D #1 VIAL Ref 0 This dose of Invega Sustenna is due on 12/19/2016. Prov:Brayden Haney MD 11/22/16 Haloperidol 5 Mg Tab7.5 Mg PO BID 15 Days Ref 1 Prov:Brayden Haney MD 11/22/16 [place] Carbonate 300 Mg Tzt509 Mg PO TID 15 Days Ref 1 Prov:Brayden Haney MD 10/26/16 Isoniazid 300 Mg Vcz382 Mg PO DAILY 15 Days Ref 1 Prov:Brayden Haney MD 10/26/16 Current Medications Medications (Trade) Dose Ordered Sig/Rob Route Start Time Stop Time Status Last Admin ([place] Carbonate) 300 mg TID PO 02/26/17 18:00 02/28/17 12:39 (SEROquel) 400 mg HS PO 02/26/17 21:00 02/27/17 20:20 (Ativan) 1 mg Q6H PRN PO 02/26/17 15:45 (Ativan Inj) 1 mg Q6H PRN IM 02/26/17 15:45 (Tylenol) 650 mg Q4H PRN PO 02/26/17 15:45 (Milk Of Magnesia Liq) 30 ml DAILY PRN PO 02/26/17 15:45 (Mag-Al Plus Susp Liq) 30 ml Q6H PRN PO 02/26/17 15:45 (Pill Splitter) 1 ea UNSCH PRN OTHER 02/26/17 16:15 (Haldol) 10 mg BID PO 02/28/17 21:00 Patient's Strengths (min. 2) Resilient and has access to healthcare. Physical Exam Vital Signs Vital Signs Date Time Temp Pulse Resp B/P Pulse Ox O2 Delivery O2 Flow Rate FiO2 02/28/17 05:47 97.1 106 18 118/75 99 02/26/17 14:46 Room Air Mental Status Examination Speech: Incoherent Orientation: Person Memory: Impaired (describe) Thought Process: Loose Association Thought Content: Bizarre thinking, Paranoid Hallucination Type: Auditory Attention and Concentration: Easily Distracted Suicidal Ideation: Yes Previous Suicide Attempts: No Homicidal Ideation: No Previous Homicide Attempts: No Insight: Poor Judgment: Impulsive Affect: Anxious Affect if Inappropriate: Blunt Mood: Appropriate, Sad Motor Activity: Normal gait Assessment & Plan Problem List: (1) Schizophrenia, paranoid type ICD Code: F20.0 Assessment & Plan Estimated LOS: days Sarbjit Champagne MD Feb 28, 2017 15:15
[2017-02-28 18:34] VITALS: BP 118/76; PULSE 105; RESP 18; TEMP 96.6; O2SAT 97
[2017-02-28] MEDS: QUEtiapine FUMARATE 200 MG TAB PO SCH (21:09)
[2017-02-28] MEDS: HALOPERIDOL 10 MG TAB PO SCH (21:09)
[2017-03-01 06:08] VITALS: BP 111/70; PULSE 86; RESP 18; TEMP 96.3; O2SAT 99
[2017-03-01] MEDS: HALOPERIDOL 10 MG TAB PO SCH ×2 (09:40→21:45)
[2017-03-01] MEDS: LITHIUM CARBONATE 300 MG CAP PO SCH ×3 (09:40→18:41)
--- NOTE | 2017-03-01 16:45 | HHI.PYPN ---
Subjective Remarks Patient seen in day room with nurse Sharon, medical student Danyel. Patient is somewhat more verbal calmer with me with better eye contact she is responding in full sentences with no irritability and only slight vigilance. For now continue treatment no change. Patient stated that she wants to be referred either to an [facility] for nursing home. Is willing to allow us to talk to her mother Review of Systems Except as stated in HPI: all other systems reviewed are Neg Objective Alert: Yes [place]: Person, Place Mood: Calm Affect: Restricted Memory Intact: Immediate, Recent, Remote Hallucinations: Auditory Delusions: Yes Delusion Type: Paranoid, Other Suicidal: Ideation (no) Homicidal: Ideation (no) Insight/Judgment Very poor Vitals/IOs Vital Signs Date Time Temp Pulse Resp B/P Pulse Ox O2 Delivery O2 Flow Rate FiO2 03/01/17 06:08 96.3 86 18 111/70 99 02/26/17 14:46 Room Air Assessment & Plan Problem List: (1) Schizophrenia, paranoid type ICD Code: F20.0 Assessment & Plan Estimated LOS: days patient continues psychotic delusional no softening, compliant medications, for now continue treatment Justification for Cont. Inpt. At this time patient will decompensate to place to the lower level of care Discharge Planning To be determined Sarbjit Champagne MD Mar 01, 2017 16:45
[2017-03-01 17:07] VITALS: BP 116/71; PULSE 94; RESP 17; TEMP 96.4; O2SAT 99
[2017-03-01] MEDS: QUEtiapine FUMARATE 200 MG TAB PO SCH (21:45)
[2017-03-02 05:18] VITALS: BP 106/59; PULSE 73; RESP 18; TEMP 98.1
[2017-03-02] MEDS: LITHIUM CARBONATE 300 MG CAP PO SCH ×3 (08:51→18:00)
[2017-03-02] MEDS: HALOPERIDOL 10 MG TAB PO SCH ×2 (08:51→20:21)
--- NOTE | 2017-03-02 10:42 | HHI.PYPN ---
Subjective Remarks Patient seen and a room with nurse Sharon, chart review. Patient compliant medication. However patient on her bed with covers over her head sleeping minimal verbal responses. It appears the delusion related her being a mermaid persists though she denies it to me she acknowledges it to other staff members. There is increase in her Haldol yesterday we'll continue to monitor her consider possible old all decanoate injection Review of Systems Except as stated in HPI: all other systems reviewed are Neg Objective Alert: Yes [place]: Person, Place Mood: Calm Affect: Restricted Memory Intact: Immediate, Recent, Remote Hallucinations: Auditory Delusions: Yes Delusion Type: Paranoid, Other Suicidal: Ideation (no) Homicidal: Ideation (no) Insight/Judgment Very poor Labs Test 03/02/17 08:25 [place] Level 0.5 MEQ/L Vitals/IOs Vital Signs Date Time Temp Pulse Resp B/P Pulse Ox O2 Delivery O2 Flow Rate FiO2 03/02/17 05:18 98.1 73 18 106/59 03/01/17 17:07 99 02/26/17 14:46 Room Air Assessment & Plan Problem List: (1) Schizophrenia, paranoid type ICD Code: F20.0 Assessment & Plan Estimated LOS: days patient continue psychotic and delusional. Though she is compliant with medications. For now continue treatment no change consider addition of Haldol decanoate Justification for Cont. Inpt. At this time patient will decompensate the placed in a lower level of care Discharge Planning To be determined Sarbjit Champagne MD Mar 02, 2017 10:42
[2017-03-02 18:04] VITALS: BP 122/65; PULSE 99; RESP 16; TEMP 97.6; O2SAT 98
[2017-03-02] MEDS: QUEtiapine FUMARATE 200 MG TAB PO SCH (20:21)
[2017-03-03 06:00] VITALS: BP 102/56; PULSE 87; RESP 18; TEMP 97.1; O2SAT 96
[2017-03-03] MEDS: HALOPERIDOL 10 MG TAB PO SCH ×2 (09:21→21:41)
[2017-03-03] MEDS: LITHIUM CARBONATE 300 MG CAP PO SCH ×3 (09:21→17:46)
--- NOTE | 2017-03-03 13:46 | HHI.PYPN ---
Subjective Remarks Pt seen and discussed with staff. She has been tearful with staff when discussing relationship with man that she does not know. She continues to express bizarre ideations. She denies mermaid delusion today but staff report that she has been discussing it on unit. She is seclusive to her room. Objective Alert: Yes [place]: Person, Place Mood: Calm Affect: Restricted Memory Intact: Immediate, Recent, Remote Hallucinations: Auditory Delusions: Yes Delusion Type: Paranoid, Other Suicidal: Ideation (no) Homicidal: Ideation (no) Insight/Judgment poor Vitals/IOs Vital Signs Date Time Temp Pulse Resp B/P Pulse Ox O2 Delivery O2 Flow Rate FiO2 03/03/17 06:00 97.1 87 18 102/56 96 Assessment & Plan Problem List: (1) Schizophrenia, paranoid type ICD Code: F20.0 Assessment & Plan Continue current tx plan. Estimated LOS: days Justification for Cont. Inpt. impairments in reality testing Richelle Clayton MD Mar 03, 2017 13:46
[2017-03-03 17:38] VITALS: BP 122/83; PULSE 105; RESP 18; TEMP 97.8; O2SAT 100
[2017-03-03] MEDS: QUEtiapine FUMARATE 200 MG TAB PO SCH (21:42)
[2017-03-04 06:55] VITALS: BP 107/64; PULSE 85; RESP 18; TEMP 97.7; O2SAT 98
[2017-03-04] MEDS: LITHIUM CARBONATE 300 MG CAP PO SCH ×3 (08:50→18:15)
[2017-03-04] MEDS: HALOPERIDOL 10 MG TAB PO SCH ×2 (08:50→21:07)
--- NOTE | 2017-03-04 12:43 | HHI.PYPN ---
Subjective Remarks Pt seen and discussed with staff. Pt has been more withdrawn today and has been isolating to her room. She is compliant with medications. Less internal stimulation. No SI/HI Objective Alert: Yes [place]: Person, Place, Date Mood: Calm Affect: Restricted Memory Intact: Immediate, Recent, Remote Hallucinations: Auditory Delusions: Yes Delusion Type: Paranoid, Other Suicidal: Ideation (no) Homicidal: Ideation (no) Insight/Judgment limited Vitals/IOs Vital Signs Date Time Temp Pulse Resp B/P Pulse Ox O2 Delivery O2 Flow Rate FiO2 03/04/17 06:55 97.7 85 18 107/64 98 Assessment & Plan Problem List: (1) Schizophrenia, paranoid type ICD Code: F20.0 Assessment & Plan Pt improving. Continue current tx plan. Estimated LOS: days Justification for Cont. Inpt. impairments in reality testing Richelle Clayton MD Mar 04, 2017 12:43
[2017-03-04 17:00] VITALS: BP 134/74; PULSE 76; RESP 16; TEMP 99.1
[2017-03-04] MEDS: QUEtiapine FUMARATE 200 MG TAB PO SCH (21:07)
[2017-03-05 06:06] VITALS: BP 107/61; PULSE 77; RESP 16; TEMP 97.7; O2SAT 100
[2017-03-05] MEDS: HALOPERIDOL 10 MG TAB PO SCH (09:10)
[2017-03-05] MEDS: LITHIUM CARBONATE 300 MG CAP PO SCH ×2 (09:10→14:08)
[2017-03-05] MEDS ORDERED: SERO400T PO (09:26)
[2017-03-05] MEDS ORDERED: LITH300C2 PO (09:26)
[2017-03-05] MEDS ORDERED: HALO10TA PO (09:26)
--- NOTE | 2017-03-05 09:32 | HHI.DS ---
Psychiatry Discharge Summary Inpatient Psychiatric care?: Yes Advance Directive: No Reason Not Provided: DOES NOT HAVE Mental Health AdvanceDirective: No Health Care Proxy: No Admission Admission Date Feb 26, 2017 at 15:43 Admission Diagnosis: (1) Schizophrenia, paranoid type ICD Code: F20.0 Brief History 21-year-old female known to the psychiatry staff from previous psychiatric emergency room visits and previous psychiatric hospitalizations. Apparently brought in last night by her adoptive mother due to the patient's confusion. Patient exhibiting significant looseness of associations and paranoid ideations. She does state she believes other people are trying to kill her. Most of her comments are nonsensical. She is not competent to consent for treatment and does not appear to understand the need for treatment, even though she was admitted voluntarily. 02/28/17 Above note dictated by Dr. Rayo reviewed and agreed with. Patient seen by me in her room with floor staff. Patient laying in bed saying she has head that she is a mermaid that she has the ability to transform herself into a breathing dragon when upset. Showing no insight into her disease denying she has a mental illness. Dr. Agustin first opinion petition supporting James act. I agree. Patient meets criteria for involuntary psychiatric hospitalization under the James act. Thus I will cosign second opinion petition supporting James act Tobacco Use In Past 30 Days: No Tobacco Past 30 Days Alcohol Use: Never Hospital Course Patient's initial psychosis delusional ideation paranoia gradually resolving issue became compliant with her medications. Patient doing good weekend showing compliance of the medication showing some processing in insight into her delusions. Today patient denies suicidality homicidality voices or visions realizes that her thoughts above mermaid's and fire Katie dragons were delusional. While patient is compliant with medications it appears she does receive and vagueness of state injection through [facility]. Next injection is due in about 1 week. Also talked with patient's mother kwame mckeon at [phone]. She feels her daughter is doing much better and is willing to have her come home today. Patient wishes discharged today it is willing to continue her oral medication until her follow-up appointment for injection thus patient to be discharged today with Rx 1 month follow-up with [facility] within 7-10 days Results Blood Pressure 107 / 61 Vital Signs Date Time Temp Pulse Resp B/P Pulse Ox O2 Delivery O2 Flow Rate FiO2 03/05/17 06:06 97.7 77 16 107/61 100 Laboratory Results Test 03/02/17 08:25 [place] Level 0.5 MEQ/L (0.5-1.5) Summary of Procedures None done Pending results at discharge: No Medications # of Antipsychotic meds at D/C: 2 Appropriate >1 Antipsych meds?: 2 (would suggest to outpatient clinician gradual taper of the Haldol as she shows compliance with the monthly injections) Approp Antipsych med options 1 - Minimum of three failed multiple trials of monotherapy. 2 - Documented plan to taper to monotherapy due to previous use of multiple meds OR cross-taper in progress at D/C. 3 - Documentation of augmentation of Clozapine. 4 - Justification other than those listed in allowable values 1-3, document here : Discharge Discharge Date: Mar 05, 2017 Discharge Diagnosis: (1) Schizophrenia, paranoid type Diagnosis: Principal ICD Code: F20.0 Mental Status Exam at Disch Alert oriented stockily built Afro-[place] female she is calm cooperative with good eye contact, she is normal active. Mood is euthymic to slightly irritable good range intensity of her affect. Speech rate and rhythm are within normal limits though no formal thought disorders. No auditory or visual hallucinations. No delusions. Insight and judgment is poor to fair. Cognition grossly intact Pt Condition on Discharge: Stable Discharge Disposition: Discharge Home Discharge Instructions Diet Instructions: As Tolerated, No Restrictions Activities you can perform: Regular-No Restrictions Scheduled Appointment: [facility] within 7-10 days Discharge Time > 30 minutes Discharge/Advance Care Plan Health Problems: (1) Schizophrenia, paranoid type Goals to promote your health * To prevent worsening of your condition and complications * To maintain your health at the optimal level Directions to meet your goals Take your medications as prescribed Follow your dietary instruction Follow activity as directed Keep your appointments as scheduled Take your immunizations and boosters as scheduled If your symptoms worsen call your PCP, if no PCP go to Urgent Care Center or Emergency Room For 19/03 questions related to your inpatient stay or results of tests pending at discharge, please contact Dr. Sarbjit Champagne at Smoking is Dangerous to Your Health. Avoid second hand smoking Sarbjit Champagne MD Mar 05, 2017 09:32
== END 2017-03-05 14:10 | disposition home or self-care (01) | DRG 885 ==
LOC: NEPD 10:56 → NEDA 15:43 → H270 16:15
PROVIDERS: ADMIT Psychiatry & Neurology Psychiatry; ATTEND Psychiatry & Neurology Psychiatry
DX: F20.0 Paranoid schizophrenia (principal); Z59.0 Homelessness
CPT/HCPCS: 80048; 80053; 80061; 80178; 80307; 81001; 83036; 84443; 84703; 85025; 93005

== ENCOUNTER 2017-08-13 10:39 | Inpatient (IN) | payer OTHER ==
[~2017-08-13] VITALS: Ht 165.1 cm; Wt 80.1 kg
[~2017-08-13 10:39] MED LIST changes: +HALO10TA PO
[2017-08-13 10:40] VITALS: BP 115/70; PULSE 107; RESP 14; TEMP 98; O2SAT 99
[2017-08-13 11:45] VITALS: BP 112/71; PULSE 93; RESP 18; TEMP 97; O2SAT 100
[2017-08-13 12:46] LABS: AUTOMATED NEUTROPHIL # 5.5 TH/MM3 (1.8-7.7); BASOPHIL % 0.4 % (0.0-2.0); EOSINOPHIL # 0.2 TH/MM3 (0-0.4); HEMATOCRIT 39.5 % (35.0-46.0); HEMOGLOBIN 12.9 GM/DL (11.6-15.3); LYMPH % 19.3 % (9.0-44.0); LYMPHOCYTE # 1.5 TH/MM3 (1.0-4.8); MEAN CELL VOLUME 88.3 FL (80.0-100.0); MEAN CORPUSCULAR HEMOGLOBIN 28.9 PG (27.0-34.0); MEAN CORPUSCULAR HGB CONC 32.7 % (32.0-36.0); MONO % 5.6 % (0.0-8.0); MONOCYTE # 0.4 TH/MM3 (0-0.9); NEUT % 72.7 % (16.0-70.0); PLATELET COUNT 278 TH/MM3 (150-450); RED BLOOD COUNT 4.47 MIL/MM3 (4.00-5.30); RED CELL DISTRIBUTION WIDTH 12.9 % (11.6-17.2); WHITE BLOOD COUNT 7.6 TH/MM3 (4.0-11.0)
[2017-08-13 12:58] LABS: ALBUMIN 3.7 GM/DL (3.4-5.0); ALT (GPT) 11 U/L (10-53); AST (GOT) 10 U/L (15-37); BICARBONATE 27.5 MEQ/L (21.0-32.0); BLOOD UREA NITROGEN 4 MG/DL (7-18); CHLORIDE 110 MEQ/L (98-107); CREATININE 0.79 MG/DL (0.50-1.00); GLOMERULAR FILTRATION RATE 110 ML/MIN (>89); GLUCOSE,RANDOM 90 MG/DL (74-106); SODIUM (NA) 142 MEQ/L (136-145)
[2017-08-13 13:01] LABS: ALKALINE PHOSPHATASE 76 U/L (45-117); TOTAL BILIRUBIN ADULT 0.3 MG/DL (0.2-1.0); TOTAL PROTEIN 7.3 GM/DL (6.4-8.2)
[2017-08-13 13:09] LABS: ACETAMINOPHEN LESS THAN 2.0 MCG/ML (10.0-30.0)
[2017-08-13 14:16] LABS: BACTERIA, URINE OCC /hpf; BILIRUBIN, URINE NEG (NEG); BLOOD, URINE NEG (NEG); GLUCOSE,URINE NEG (NEG); KETONE, URINE 10 mg/dL (NEG); MUCUS URINE FEW /lpf (OCC); NITRITE,URINE NEG (NEG); PH, URINE 7.5 (5.0-8.5); SQUAMOUS EPITHELIAL CELL URINE 15 /hpf (0-5); URINE COLOR YELLOW (YELLW/STRAW); URINE LEUKOCYTE ESTERASE NEG (NEG)
[2017-08-13] MEDS ORDERED: diphenhydrAMINE HCL 50 MG/ML VIAL IM PRN (14:45)
[2017-08-13] MEDS ORDERED: MAGNESIUM HYDROXIDE SUSP 30 ML CUP PO PRN (14:45)
[2017-08-13] MEDS ORDERED: diphenhydrAMINE HCL 50 MG CAP PO PRN (14:45)
[2017-08-13] MEDS ORDERED: ACETAMINOPHEN 325 MG TAB PO PRN (14:45)
[2017-08-13] MEDS ORDERED: hydrOXYzine HCL 50 MG TAB PO PRN (14:45)
[2017-08-13] MEDS ORDERED: LORazepam 2 MG/ML VIAL IM PRN (14:45)
[2017-08-13] MEDS ORDERED: ALUMINUM/MAGNESIUM/SIMETH 30 ML CUP PO PRN (14:45)
--- NOTE | 2017-08-13 14:47 | HHI.HP ---
Provisional Diagnosis Admission Date Aug 13, 2017 at 14:34 [place] I. Schizophrenia, paranoid type Certification of Person's Competence To Provide Express and Informed Consent I have personally examined Jame Hooks , a person being served at [facility] on, Aug 13, 2017 14:43. Express and informed consent means consent voluntarily given in writing, by a competent person, after sufficient explanation and disclosure of the subject matter involved to enable the person to make a knowing and willful decision without any element of force, fraud, deceit, duress, or other form of constraint or coercion. This person is 18 years of age or older, is not now known to be incompetent to consent to treatment with a guardian advocate, and does not have a health care surrogate or proxy currently making medical treatment decisions. I have found this person to be one of the following: [] Competent to provide express and informed consent, as defined above, for voluntary admission to this facility and is competent to provide express and informed consent for treatment. He/she has the consistent capacity to make well reasoned, willful, and knowing decisions concerning his or her medical or mental health treatment. The person fully and consistently understands the purpose of the admission for examination/placement and is fully capable of personally exercising all rights [place] [x] Incompetent to provide express and informed consent to voluntary admission, and this is incompetent to provide express and informed consent to treatment. The person must be transferred to involuntary status and a petition for a guardian advocate filed with the Circuit Court. [] Refusing to provide express and informed consent to voluntary admission but is competent to provide express and informed consent for treatment. The person must be discharged or transferred to involuntary status. Form shall be completed within 24 hours of a person's arrival at the receiving facility and filed in the clinical record of each person: 1. Admitted on a voluntary basis 2. Permitted to provide express and informed consent to his/her own treatment 3. Allowed to transfer from involuntary to voluntary status 4. Prior to permitting a person to consent to his or her own treatment after having been previously found incompetent to consent to treatment. History of Present Illness Capacity: Lacks Capacity HPI 21-year-old female presents voluntarily with auditory hallucinations, paranoid delusions, suicidal ideation and inappropriate behavior. Apparently the patient has repeatedly been disrobing and walking around naked, both inside her home and outside of her home. She is reporting auditory hallucinations which do not stop and are critical of her as well as intermittently telling her to kill herself. Patient does have suicidal ideation. She does not currently have a plan. However she is also demonstrating thought blocking and looseness of associations. She appears to be responding to internal stimuli. She apparently threw her cell phone away as she came into the emergency department. She feels her mother is trying to control her or punish her and she does not want her mother to know what's going on. Review of Systems Psychiatric: COMPLAINS OF: Anxiety, Confusion, Hallucinations, Delusions Except as stated in HPI: all other systems reviewed are Neg Past Psych History Psychological trauma history Unknown psychological trauma. Patient poor historian. Violence risk - others (6 mos) Minimal to moderate Violence risk - self (6 mos) High Substance Abuse History Drugs/Alcohol past 12 months Denied and toxicology screen negative. Past Family Social History Coded Allergies: No Known Allergies (Unverified Allergy, Unknown, 08/13/17) haloperidol (Verified Allergy, Unknown, 08/13/17) paliperidone (Verified Allergy, Unknown, 08/13/17) Active Scripts Quetiapine (Seroquel) 400 Mg Tab, 400 MG PO HS for health, #30 TAB 0 Refills Prov:Sarbjit Champagne MD 03/05/17 [place] Carbonate ([place] Carbonate) 300 Mg Cap, 300 MG PO TID for health, #90 CAP 0 Refills Prov:Sarbjit Champagne MD 03/05/17 Haloperidol (Haloperidol) 10 Mg Tab, 10 MG PO BID for health, #60 TAB 0 Refills Prov:Sarbjit Champagne MD 03/05/17 Quetiapine (Seroquel) 400 Mg Tab, 400 MG PO HS for Mental Health for 15 Days, TAB 1 Refill Please discuss with your outpatient provider adjusting this and other antipsychotic medications to reduce polypharmacy. Prov:Brayden Haney MD 11/22/16 Paliperidone Palmitate Inj (Invega Sustenna Inj) 156 Mg/Ml Inj, 156 MG IM Q28D for Mental Health, #1 VIAL 0 Refills This dose of Invega Sustenna is due on 12/19/2016. Prov:Brayden Haney MD 11/22/16 Haloperidol (Haloperidol) 5 Mg Tab, 7.5 MG PO BID for Mental Health for 15 Days , TAB 1 Refill Prov:Brayden Haney MD 11/22/16 [place] Carbonate ([place] Carbonate) 300 Mg Cap, 300 MG PO TID for Mental Health for 15 Days, CAP 1 Refill Prov:Brayden Haney MD 10/26/16 Isoniazid (Isoniazid) 300 Mg Tab, 300 MG PO DAILY for Prophylaxis for 15 Days, TAB 1 Refill Prov:Brayden Haney MD 10/26/16 Current Medications Medications (Trade) Dose Ordered Sig/Rob Route Start Time Stop Time Status Last Admin (Ativan) 1 mg Q6H PRN PO 08/13/17 14:45 (Ativan Inj) 1 mg Q6H PRN IM 08/13/17 14:45 (Benadryl) 50 mg Q6H PRN PO 08/13/17 14:45 (Benadryl Inj) 50 mg Q6H PRN IM 08/13/17 14:45 (Tylenol) 650 mg Q4H PRN PO 08/13/17 14:45 (Milk Of Magnesia Liq) 30 ml DAILY PRN PO 08/13/17 14:45 (Mag-Al Plus Susp Liq) 30 ml Q6H PRN PO 08/13/17 14:45 (Desyrel) 50 mg HS PRN PO 08/13/17 14:45 (Atarax) 50 mg Q6H PRN PO 08/13/17 14:45 (Isoniazid) 300 mg DAILY PO 08/14/17 09:00 ([place] Carbonate) 300 mg TID PO 08/13/17 18:00 (SEROquel) 400 mg HS PO 08/13/17 21:00 Family Psych History Unknown. Patient poor historian. Social History Patient unemployed and disabled from her ability to work. Lives with her mother most of the time. Denies substance abuse or alcoholism. Mother supportive but unable to care for patient at this time. Patient's Strengths (min. 2) Verbal and has access to healthcare. Physical Exam GENERAL: SKIN: Warm and dry. HEAD: Normocephalic. EYES: No scleral icterus. No injection or drainage. NECK: Supple, trachea midline. No JVD or lymphadenopathy. CARDIOVASCULAR: Regular rate and rhythm without murmurs, gallops, or rubs. RESPIRATORY: Breath sounds equal bilaterally. No accessory muscle use. GASTROINTESTINAL: Abdomen soft, non-tender, nondistended. MUSCULOSKELETAL: No cyanosis, or edema. BACK: Nontender without obvious deformity. No CVA tenderness. Vital Signs Vital Signs Date Time Temp Pulse Resp B/P (MAP) Pulse Ox O2 Delivery O2 Flow Rate FiO2 08/13/17 11:45 97.0 93 18 112/71 (85) 100 Room Air Lab Results Test 08/13/17 12:01 08/13/17 12:18 Urine Color YELLOW Urine Turbidity HAZY Urine pH 7.5 Urine Specific [place] 1.017 Urine Protein 30 mg/dL Urine Glucose (UA) NEG mg/dL Urine Ketones 10 mg/dL Urine Occult Blood NEG Urine Nitrite NEG Urine Bilirubin NEG Urine Urobilinogen LESS THAN 2.0 MG/DL Urine Leukocyte Esterase NEG Urine RBC LESS THAN 1 /hpf Urine WBC 1 /hpf Urine Squamous Epithelial Cells 15 /hpf Urine Bacteria OCC /hpf Urine Mucus FEW /lpf Microscopic Urinalysis Comment CULT NOT INDICATED Urine Opiates Screen NEG Urine Barbiturates Screen NEG Urine Amphetamines Screen NEG Urine Benzodiazepines Screen NEG Urine Cocaine Screen NEG Urine Cannabinoids Screen NEG White Blood Count 7.6 TH/MM3 Red Blood Count 4.47 MIL/MM3 Hemoglobin 12.9 GM/DL Hematocrit 39.5 % Mean Corpuscular Volume 88.3 FL Mean Corpuscular Hemoglobin 28.9 PG Mean Corpuscular Hemoglobin Concent 32.7 % Red Cell Distribution Width 12.9 % Platelet Count 278 TH/MM3 Mean Platelet Volume 8.0 FL Neutrophils (%) (Auto) 72.7 % Lymphocytes (%) (Auto) 19.3 % Monocytes (%) (Auto) 5.6 % Eosinophils (%) (Auto) 2.0 % Basophils (%) (Auto) 0.4 % Neutrophils # (Auto) 5.5 TH/MM3 Lymphocytes # (Auto) 1.5 TH/MM3 Monocytes # (Auto) 0.4 TH/MM3 Eosinophils # (Auto) 0.2 TH/MM3 Basophils # (Auto) 0.0 TH/MM3 CBC Comment DIFF FINAL Differential Comment Blood Urea Nitrogen 4 MG/DL Creatinine 0.79 MG/DL Random Glucose 90 MG/DL Total Protein 7.3 GM/DL Albumin 3.7 GM/DL Calcium Level 9.0 MG/DL Alkaline Phosphatase 76 U/L Aspartate Amino Transf (AST/SGOT) 10 U/L Alanine Aminotransferase (ALT/SGPT) 11 U/L Total Bilirubin 0.3 MG/DL Sodium Level 142 MEQ/L Potassium Level 3.8 MEQ/L Chloride Level 110 MEQ/L Carbon Dioxide Level 27.5 MEQ/L Anion Gap 5 MEQ/L Estimat Glomerular Filtration Rate 110 ML/MIN Salicylates Level LESS THAN 1.7 MG/DL Acetaminophen Level LESS THAN 2.0 MCG/ML [place] Level 0.6 MEQ/L Ethyl Alcohol Level LESS THAN 3 MG/DL Mental Status Examination Appearance: Disheveled Consciousness: Alert Orientation: x4 Motor Activity: Abnormal gait Speech: Hesitant Language: Perseveration Fund of Knowledge: Inadequate Attention and Concentration: Easily Distracted Memory: Impaired Mood: Anxious Affect: Flat Thought Process & Associations: Loose associations Thought Content: Hallucinations, Delusional Hallucination Type: Auditory Delusion Type: Paranoid Suicidal Ideation: Yes Suicidal Plan: No Suicidal Intention: No Homicidal Ideation: No Homicidal Plan: No Homicidal Intention: No Insight: Poor Judgment: Impulsive Assessment & Plan Problem List: (1) Schizophrenia, paranoid type ICD Codes: F20.0 - Paranoid schizophrenia Status: Acute Assessment & Plan Estimated LOS: days. 21-year-old female with multiyear history of schizophrenia, known to this physician from previous hospitalization in February of this year. Patient is actively psychotic, experiencing command auditory hallucinations to kill herself. She is felt to be at high risk for self-harm. This physician is providing a James act and paperwork as patient is not felt to be competent to make medical or psychiatric decisions. This physician has ordered a CBC and comprehensive metabolic panel to determine if any infectious process or metabolic process is causing or contributing to the patient's psychosis. This physician notes the patient is taking isoniazid, and this medicine was continued as well as a hospitalist consult placed, in case the patient is at risk for tuberculosis. Additionally, this physician ordered thyroid stimulating hormone level, vitamin B-12 and vitamin D levels, as deficiencies in these areas can cause or contribute to her psychosis. An EKG was also ordered to determine the patient's cardiac conduction status as she is found to be on no less than 3 antipsychotics, which in combination or individually could cause a electrical system dysfunction in her heart. This physician spoke to the patient's nurse, Obdulio, regarding her behavior. Lastly , case management will be involved for further information gathering and disposition planning. Garcia Rayo MD Aug 13, 2017 14:47
[2017-08-13 15:03] VITALS: BP 112/71; PULSE 93; RESP 18; O2SAT 99
--- NOTE | 2017-08-13 15:11 | PD ---
HPI Chief Complaint: Psychiatric Symptoms Time Seen by Provider: 12:20 Travel History International Travel<30 days: No Contact w/Intl Traveler<30days: No Traveled to known affect area: No History of Present Illness HPI 21-year-old female presents to the emergency department all interiorly for psychiatric evaluation. History of schizophrenia. Takes [place]. She was James acted by Dr. Ryao for psychotic behavior. Patient denies suicidal or homicidal ideations. Denies history of suicidal attempts. The patient is drawing a picture in her room during history of present illness and a physical exam and when I asked her what she was trying she said she was trying thoughts in her mind. When I ask her what her thoughts where she told me that she is a mermaid and she is drawing the water. Patient denies illicit drug use, EtOH, tobacco use. She has no current emergent medical complaints. She says she has happy. She denies recent illness to include fever or vomiting. Allergies to Haldol and paliperidone. No other modifying factors or associated signs and symptoms. PFSH Past Medical History Hx Anticoagulant Therapy: No Anxiety: Yes Depression: Yes (UNAHPPY WITH FAMILY LIVING SITUATION) Cancer: No Cardiovascular Problems: No Chemotherapy: No Cerebrovascular Accident: No Diabetes: No Diminished Hearing: No Endocrine: No Genitourinary: No Immune Disorder: No Musculoskeletal: No Neurologic: No Psychiatric: Yes Reproductive: No Respiratory: No Schizophrenia: Yes Tetanus Vaccination: Unknown ?: Not : 0 Para: 0 Miscarriage: 0 : 0 Social History Alcohol Use: No Tobacco Use: No Substance Use: No (denies) Allergies-Medications (Allergen,Severity, Reaction): Coded Allergies: haloperidol (Verified Allergy, Unknown, 08/13/17) paliperidone (Verified Allergy, Unknown, 08/13/17) Reported Meds & Prescriptions Reported Meds & Active Scripts Active Seroquel (Quetiapine Fumarate) 400 Mg Tab 400 Mg PO HS [place] Carbonate 300 Mg Cap 300 Mg PO TID Haloperidol 10 Mg Tab 10 Mg PO BID Seroquel (Quetiapine Fumarate) 400 Mg Tab 400 Mg PO HS 15 Days Please discuss with your outpatient provider adjusting this and other antipsychotic medications to reduce polypharmacy. Invega Sustenna Inj (Paliperidone Palmitate) 156 Mg/Ml Inj 156 Mg IM Q28D This dose of Invega Sustenna is due on 12/19/2016. Haloperidol 5 Mg Tab 7.5 Mg PO BID 15 Days [place] Carbonate 300 Mg Cap 300 Mg PO TID 15 Days Isoniazid 300 Mg Tab 300 Mg PO DAILY 15 Days Review of Systems Except as stated in HPI: all other systems reviewed are Neg Physical Exam Narrative GENERAL: Well-nourished, well-developed black female patient, in no acute distress SKIN: Warm and dry. HEAD: Atraumatic. Normocephalic. EYES: Pupils equal and round. ENT: Mucosa pink and moist. NECK: Supple. Trachea midline. CARDIOVASCULAR: Regular rate and rhythm. No murmur appreciated. RESPIRATORY: No accessory muscle use. Clear to auscultation. Breath sounds equal bilaterally. GASTROINTESTINAL: Abdomen soft, non-tender, nondistended. Hepatic and splenic margins not palpable. Bowel sounds are active 4 quadrants. MUSCULOSKELETAL: No obvious deformities. No clubbing. No cyanosis. No edema. NEUROLOGICAL: Flat affect. Awake and alert. No obvious cranial nerve deficits. Motor grossly within normal limits. Normal speech. Moves all extremities. 5/5 strength to all extremities. PSYCHIATRIC: No delusional thought processes. No hallucinations. Data Data Last Documented VS Vital Signs Date Time Temp Pulse Resp B/P (MAP) Pulse Ox O2 Delivery O2 Flow Rate FiO2 08/13/17 11:45 97.0 93 18 112/71 (85) 100 Room Air Orders Orders Diet Regular Basic (08/13/17 Lunch) Complete Blood Count With Diff (08/13/17 12:19) Comprehensive Metabolic Panel (08/13/17 12:19) Urinalysis - C+S If Indicated (08/13/17 12:19) Ed Urine Pregnancytest Poc (08/13/17 12:19) Psych Screen (08/13/17 12:19) [place] (Li) (08/13/17 12:19) Drug Screen, Random Urine (08/13/17 12:19) Alcohol (Ethanol) (08/13/17 12:19) Salicylates (Aspirin) (08/13/17 12:19) Tylenol (Acetaminophen) (08/13/17 12:19) Admit Order (Ed Use Only) (08/13/17 14:33) Labs Laboratory Tests Test 08/13/17 12:01 08/13/17 12:18 Urine Color YELLOW Urine Turbidity HAZY Urine pH 7.5 Urine Specific [place] 1.017 Urine Protein 30 mg/dL Urine Glucose (UA) NEG mg/dL Urine Ketones 10 mg/dL Urine Occult Blood NEG Urine Nitrite NEG Urine Bilirubin NEG Urine Urobilinogen LESS THAN 2.0 MG/DL Urine Leukocyte Esterase NEG Urine RBC LESS THAN 1 /hpf Urine WBC 1 /hpf Urine Squamous Epithelial Cells 15 /hpf Urine Bacteria OCC /hpf Urine Mucus FEW /lpf Microscopic Urinalysis Comment CULT NOT INDICATED Urine Opiates Screen NEG Urine Barbiturates Screen NEG Urine Amphetamines Screen NEG Urine Benzodiazepines Screen NEG Urine Cocaine Screen NEG Urine Cannabinoids Screen NEG White Blood Count 7.6 TH/MM3 Red Blood Count 4.47 MIL/MM3 Hemoglobin 12.9 GM/DL Hematocrit 39.5 % Mean Corpuscular Volume 88.3 FL Mean Corpuscular Hemoglobin 28.9 PG Mean Corpuscular Hemoglobin Concent 32.7 % Red Cell Distribution Width 12.9 % Platelet Count 278 TH/MM3 Mean Platelet Volume 8.0 FL Neutrophils (%) (Auto) 72.7 % Lymphocytes (%) (Auto) 19.3 % Monocytes (%) (Auto) 5.6 % Eosinophils (%) (Auto) 2.0 % Basophils (%) (Auto) 0.4 % Neutrophils # (Auto) 5.5 TH/MM3 Lymphocytes # (Auto) 1.5 TH/MM3 Monocytes # (Auto) 0.4 TH/MM3 Eosinophils # (Auto) 0.2 TH/MM3 Basophils # (Auto) 0.0 TH/MM3 CBC Comment DIFF FINAL Differential Comment Blood Urea Nitrogen 4 MG/DL Creatinine 0.79 MG/DL Random Glucose 90 MG/DL Total Protein 7.3 GM/DL Albumin 3.7 GM/DL Calcium Level 9.0 MG/DL Alkaline Phosphatase 76 U/L Aspartate Amino Transf (AST/SGOT) 10 U/L Alanine Aminotransferase (ALT/SGPT) 11 U/L Total Bilirubin 0.3 MG/DL Sodium Level 142 MEQ/L Potassium Level 3.8 MEQ/L Chloride Level 110 MEQ/L Carbon Dioxide Level 27.5 MEQ/L Anion Gap 5 MEQ/L Estimat Glomerular Filtration Rate 110 ML/MIN Salicylates Level LESS THAN 1.7 MG/DL Acetaminophen Level LESS THAN 2.0 MCG/ML [place] Level 0.6 MEQ/L Ethyl Alcohol Level LESS THAN 3 MG/DL [facility] Medical Decision Making Medical Screen Exam Complete: Yes Emergency Medical Condition: Yes Medical Record Reviewed: Yes Differential Diagnosis Psychotic disorder, schizophrenia, schizoaffective disorder Narrative Course Patient presents voluntarily. He was James acted by Dr. Rayo for psychotic behavior. Physical examination and vital signs are essentially unremarkable. Patient has no medical complaints to report. Psych screen has been ordered. If the laboratory results are unremarkable, the patient will be medically cleared for psychiatric evaluation and disposition. 1510: Labs reviewed and all are unremarkable. Diagnosis Primary Impression: Medical clearance for psychiatric admission Condition: Stable Sara Sahu Aug 13, 2017 15:11
[2017-08-13 17:58] VITALS: BP 127/82; PULSE 93; RESP 18; TEMP 97.8; O2SAT 100
[2017-08-13] MEDS: LITHIUM CARBONATE 300 MG CAP PO SCH (18:00)
[2017-08-13] MEDS: QUEtiapine FUMARATE 200 MG TAB PO SCH (21:00)
[2017-08-14 06:22] VITALS: BP 117/80; PULSE 96; RESP 16; TEMP 98.2; O2SAT 98
[2017-08-14] MEDS: LITHIUM CARBONATE 300 MG CAP PO SCH ×4 (09:00→18:06)
[2017-08-14] MEDS: ISONIAZID 300 MG TAB PO SCH (09:30)
[2017-08-14] MEDS ORDERED: LORazepam 1 MG TAB PO STA (10:10)
[2017-08-14] MEDS ORDERED: LORazepam 1 MG TAB PO ONE (10:30)
--- NOTE | 2017-08-14 11:54 | HHI.PYPN ---
Subjective Remarks Patient initially admitted by Dr. Garcia Rayo his initial psych evaluation reviewed and agreed with. I have completed the initial psychiatric template orders. I reviewed the med reconciliation. Patient seen in the [facility] today with nurse Sandra, patient quite psychotic labile paranoid focusing on her father calling him a dragon and wanting his forgive nurse. She is quite labile with this and volatile. She is vague about any auditory hallucinations. Wong significant degree of vigilance and paranoia noted. Dr. Rayo initiated first opinion petition supporting James act I agree patient meets criteria for involuntary psychiatric hospitalization of the James act thus I'll sign second opinion petition supporting James act. Is also initiated health care surrogate and guardian advocate I agree with that also. And it appears mother will be health care surrogate. I did attempt to talk to patient's mother concern medications there is no intrathoracic home with of the counselor continue to try to reach mother and perhaps arrange for meeting tomorrow morning Review of Systems ROS Limitations: Altered Mental Status, Psychotic Mental Status Examination Appearance: Disheveled Consciousness: Alert Orientation: x4 Motor Activity: Abnormal gait Speech: Hesitant Language: Perseveration Fund of Knowledge: Inadequate Attention and Concentration: Easily Distracted Memory: Impaired Mood: Sad, Anxious Affect: Other (increased range and intensity) Thought Process & Associations: Loose associations Thought Content: Hallucinations, Delusional Hallucination Type: Auditory Delusion Type: Paranoid Suicidal Ideation: Yes Suicidal Plan: No Suicidal Intention: No Homicidal Ideation: No Homicidal Plan: No Homicidal Intention: No Insight: Poor Judgment: Impulsive Results Labs Test 08/13/17 12:01 08/13/17 12:18 Urine Color YELLOW Urine Turbidity HAZY Urine pH 7.5 Urine Specific [place] 1.017 Urine Protein 30 mg/dL Urine Glucose (UA) NEG mg/dL Urine Ketones 10 mg/dL Urine Occult Blood NEG Urine Nitrite NEG Urine Bilirubin NEG Urine Urobilinogen LESS THAN 2.0 MG/DL Urine Leukocyte Esterase NEG Urine RBC LESS THAN 1 /hpf Urine WBC 1 /hpf Urine Squamous Epithelial Cells 15 /hpf Urine Bacteria OCC /hpf Urine Mucus FEW /lpf Microscopic Urinalysis Comment CULT NOT INDICATED Urine Opiates Screen NEG Urine Barbiturates Screen NEG Urine Amphetamines Screen NEG Urine Benzodiazepines Screen NEG Urine Cocaine Screen NEG Urine Cannabinoids Screen NEG White Blood Count 7.6 TH/MM3 Red Blood Count 4.47 MIL/MM3 Hemoglobin 12.9 GM/DL Hematocrit 39.5 % Mean Corpuscular Volume 88.3 FL Mean Corpuscular Hemoglobin 28.9 PG Mean Corpuscular Hemoglobin Concent 32.7 % Red Cell Distribution Width 12.9 % Platelet Count 278 TH/MM3 Mean Platelet Volume 8.0 FL Neutrophils (%) (Auto) 72.7 % Lymphocytes (%) (Auto) 19.3 % Monocytes (%) (Auto) 5.6 % Eosinophils (%) (Auto) 2.0 % Basophils (%) (Auto) 0.4 % Neutrophils # (Auto) 5.5 TH/MM3 Lymphocytes # (Auto) 1.5 TH/MM3 Monocytes # (Auto) 0.4 TH/MM3 Eosinophils # (Auto) 0.2 TH/MM3 Basophils # (Auto) 0.0 TH/MM3 CBC Comment DIFF FINAL Differential Comment Blood Urea Nitrogen 4 MG/DL Creatinine 0.79 MG/DL Random Glucose 90 MG/DL Total Protein 7.3 GM/DL Albumin 3.7 GM/DL Calcium Level 9.0 MG/DL Alkaline Phosphatase 76 U/L Aspartate Amino Transf (AST/SGOT) 10 U/L Alanine Aminotransferase (ALT/SGPT) 11 U/L Total Bilirubin 0.3 MG/DL Sodium Level 142 MEQ/L Potassium Level 3.8 MEQ/L Chloride Level 110 MEQ/L Carbon Dioxide Level 27.5 MEQ/L Anion Gap 5 MEQ/L Estimat Glomerular Filtration Rate 110 ML/MIN Salicylates Level LESS THAN 1.7 MG/DL Acetaminophen Level LESS THAN 2.0 MCG/ML [place] Level 0.6 MEQ/L Ethyl Alcohol Level LESS THAN 3 MG/DL Vitals/IOs Vital Signs Date Time Temp Pulse Resp B/P (MAP) Pulse Ox O2 Delivery O2 Flow Rate FiO2 08/14/17 06:22 98.2 96 16 117/80 (92) 98 08/13/17 15:03 Room Air Assessment & Plan Problem List: (1) Schizophrenia, paranoid type ICD Codes: F20.0 - Paranoid schizophrenia Status: Acute Assessment & Plan Estimated LOS: days patient psychotic delusional and paranoid, compliant medications. This time patient does meet criteria for involuntary psychiatric hospitalization I will do second opinion petition supporting Dr. Knox first opinion. I do agree with health care surrogate and guardian advocate Justification for Cont. Inpt. At this time patient will decompensate the placed in a lower level of care Discharge Planning With this time placement is problematic Request HC Surrog/Guard Advoc?: Yes Sarbjit Champagne MD Aug 14, 2017 11:54
--- NOTE | 2017-08-14 14:06 | EKG ---
Date Performed: 08/14/2017 Time Performed: 13:22:58 PTAGE: 21 years EKG: Marked baseline artifact sinus tachycardia would repeat EKG PREVIOUS TRACING : 02/26/2017 13.03 DOCTOR: Venu Renteria Interpretating Date/Time 08/14/2017 14:04:56
--- NOTE | 2017-08-14 14:34 | PD.CONS ---
[facility] Service [facility] Consult Requested By Dr. Shauna Rayo Reason for Consult Medical management Primary Care Physician No Primary Care Physician Diagnoses: (1) Schizophrenia, paranoid type History of Present Illness 21-year-old female with a PMH of schizophrenia, and bipolar disorder. Emergency department documentation reviewed, patient brought into ED with complaints of hallucinations. Patient is seen and examined in room, she is talkative and states that she is talking to his father who is a dragon. She tells me her only past medical history is of schizophrenia and bipolar disorder, she denies any other past medical history. I ask her is she is in any pain and she tells me "no ". She denies chest pain, SOB, headache, N/V/D. She is in her room talking to the reflection on the mirror, unable to understand all she is saying, she gets upset and becomes tearful. Review of Systems Cardiovascular: DENIES: Chest pain, Palpitations Except as stated in HPI: all other systems reviewed are Neg Past Family Social History Allergies: Coded Allergies: haloperidol (Verified Allergy, Unknown, 08/13/17) paliperidone (Verified Allergy, Unknown, 08/13/17) Past Medical History Schizophrenia Bipolar disorder Past Surgical History Denies past surgical history Reported Medications Reported Meds & Active Scripts Active Seroquel (Quetiapine Fumarate) 400 Mg Tab 400 Mg PO HS [place] Carbonate 300 Mg Cap 300 Mg PO TID Seroquel (Quetiapine Fumarate) 400 Mg Tab 400 Mg PO HS 15 Days Please discuss with your outpatient provider adjusting this and other antipsychotic medications to reduce polypharmacy. [place] Carbonate 300 Mg Cap 300 Mg PO TID 15 Days Isoniazid 300 Mg Tab 300 Mg PO DAILY 15 Days Active Ordered Medications Current Medications Medications (Trade) Dose Ordered Sig/Rob Route Start Time Stop Time Status Last Admin (Ativan) 1 mg Q6H PRN PO 08/13/17 14:45 (Ativan Inj) 1 mg Q6H PRN IM 08/13/17 14:45 (Tylenol) 650 mg Q4H PRN PO 08/13/17 14:45 (Milk Of Magnesia Liq) 30 ml DAILY PRN PO 08/13/17 14:45 (Mag-Al Plus Susp Liq) 30 ml Q6H PRN PO 08/13/17 14:45 (Desyrel) 50 mg HS PRN PO 08/13/17 14:45 (Atarax) 50 mg Q6H PRN PO 08/13/17 14:45 (Isoniazid) 300 mg DAILY PO 08/14/17 09:00 08/14/17 09:30 ([place] Carbonate) 300 mg TID PO 08/13/17 18:00 08/14/17 13:01 (SEROquel) 400 mg HS PO 08/13/17 21:00 (Habitrol 21 Mg Patch.24 Hr) 1 patch DAILY T-DERMAL 08/15/17 09:00 Miscellaneous Information 1 DAILY T-DERMAL 08/15/17 09:00 Family History Does not answer questions regarding past PFH Social History Tobacco use: denies Alcohol use: denies Illicit drug use: denies Physical Exam Vital Signs Vital Signs Date Time Temp Pulse Resp B/P (MAP) Pulse Ox O2 Delivery O2 Flow Rate FiO2 08/14/17 06:22 98.2 96 16 117/80 (92) 98 08/13/17 17:58 97.8 93 18 127/82 (97) 100 08/13/17 16:09 08/13/17 15:03 93 18 112/71 (85) 99 Room Air Physical Exam GENERAL: This is a well-nourished, well-developed patient, in no distress. SKIN: No rashes, ecchymoses or lesions. Cool and dry. HEAD: Atraumatic. Normocephalic. EYES: Pupils equal round and reactive. ENT: Nose without bleeding Airway patent. NECK: Trachea midline. No JVD Supple, nontender. CARDIOVASCULAR: Regular rate and rhythm without murmurs, gallops, or rubs. RESPIRATORY: Clear to auscultation. Breath sounds equal bilaterally. No wheezes , rales, or rhonchi. GASTROINTESTINAL: Abdomen soft, non-tender, nondistended.No guarding. MUSCULOSKELETAL: Extremities without clubbing, cyanosis, or edema. No joint tenderness, effusion, or edema noted. NEUROLOGICAL: Awake and alert. Motor and sensory grossly within normal limits. Five out of 5 muscle strength in all muscle groups. Normal speech. PSYCH: Talking to herself int he mirror, gestures of drawling on the wall of her room. Tearful when she makes mention of her father. Result Diagram: 08/13/17 1218 08/13/17 1218 Assessment and Plan Assessment and Plan 21-year-old female with a PMH of schizophrenia, and bipolar disorder. Emergency department documentation reviewed, patient brought into ED with complaints of hallucinations. ?Tuberculosis prophylaxis with Isoniazid - Currently on Isoniazid, patient is not aware why - Order place to have nurse reach PCP or pharmacy for details on reason why she is on this. Schizophrenia/bipolar disorder with auditory hallucinations - Managed by psych with use of Seroquel, Trazodone, [place], PRN Ativan and Atarax - Continue management by psych Tobacco use - Patient denies tobacco use, active nicotine patch VTE - Ambulating on her own Patient discussed and Abnormal EKG reviewed with . Code Status Full code Pedro Vance Aug 14, 2017 14:34
[2017-08-14 18:31] VITALS: BP 116/84; PULSE 110; RESP 16; TEMP 98.6; O2SAT 99
[2017-08-14] MEDS: QUEtiapine FUMARATE 200 MG TAB PO SCH (22:02)
[2017-08-15 06:15] VITALS: BP 105/60; PULSE 81; RESP 18; TEMP 98.2; O2SAT 100
[2017-08-15] MEDS: REMOVE OLD NICOTINE PATCH T-DERMAL SCH (09:00)
[2017-08-15] MEDS: NICOTINE 21 MG/24 HR PATCH T-DERMAL SCH (09:00)
[2017-08-15] MEDS: LITHIUM CARBONATE 300 MG CAP PO SCH ×3 (09:51→19:18)
[2017-08-15] MEDS: ISONIAZID 300 MG TAB PO SCH (09:51)
[2017-08-15 12:07] LABS: AUTOMATED NEUTROPHIL # 4.1 TH/MM3 (1.8-7.7); BASOPHIL % 0.5 % (0.0-2.0); EOSINOPHIL # 0.2 TH/MM3 (0-0.4); EOSINOPHIL % 3.6 % (0.0-4.0); HEMATOCRIT 38.2 % (35.0-46.0); HEMOGLOBIN 12.5 GM/DL (11.6-15.3); LYMPH % 24.3 % (9.0-44.0); LYMPHOCYTE # 1.6 TH/MM3 (1.0-4.8); MEAN CELL VOLUME 87.7 FL (80.0-100.0); MEAN CORPUSCULAR HEMOGLOBIN 28.7 PG (27.0-34.0); MEAN CORPUSCULAR HGB CONC 32.8 % (32.0-36.0); MONO % 8.8 % (0.0-8.0); MONOCYTE # 0.6 TH/MM3 (0-0.9); NEUT % 62.8 % (16.0-70.0); PLATELET COUNT 284 TH/MM3 (150-450); RED BLOOD COUNT 4.36 MIL/MM3 (4.00-5.30); RED CELL DISTRIBUTION WIDTH 13.3 % (11.6-17.2); WHITE BLOOD COUNT 6.5 TH/MM3 (4.0-11.0)
[2017-08-15 12:32] LABS: HEMOGLOBIN A1C 4.7 % (4.3-6.0)
[2017-08-15 12:43] LABS: ALBUMIN 3.4 GM/DL (3.4-5.0); ALT (GPT) 11 U/L (10-53); AST (GOT) 8 U/L (15-37); BICARBONATE 26.4 MEQ/L (21.0-32.0); BLOOD UREA NITROGEN 5 MG/DL (7-18); CALCIUM 8.7 MG/DL (8.5-10.1); CHLORIDE 109 MEQ/L (98-107); CHOLESTEROL 157 MG/DL (120-200); CREATININE 0.75 MG/DL (0.50-1.00); GLOMERULAR FILTRATION RATE 117 ML/MIN (>89); GLUCOSE,RANDOM 105 MG/DL (74-106); SODIUM (NA) 141 MEQ/L (136-145); TRIGLYCERIDES 58 MG/DL (42-150)
[2017-08-15 13:09] LABS: ALKALINE PHOSPHATASE 74 U/L (45-117); CHOLESTEROL/ HDL RATIO 3.74 RATIO; HDL CHOLESTEROL 41.9 MG/DL (40.0-60.0); LDL CHOLESTEROL 104 MG/DL (0-99); TOTAL BILIRUBIN ADULT 0.4 MG/DL (0.2-1.0); TOTAL PROTEIN 6.9 GM/DL (6.4-8.2)
--- NOTE | 2017-08-15 14:22 | HHI.PYPN ---
Subjective Remarks Patient seen in [place] with nurse Bev, patient showing somewhat more stable affect it is somewhat elevated, patient showing very poor boundaries standing quite close to us with intense eye contact showing no insight into yesterday's behavior. She is not as tearful as yesterday. While she still shows very little insight into her disease. Though she states she wants to be home by crispness. At this time will increase Seroquel to 100 mg a.m. 400 mg at bedtime Review of Systems Except as stated in HPI: all other systems reviewed are Neg Mental Status Examination Appearance: Disheveled Consciousness: Alert Orientation: x4 Motor Activity: Abnormal gait Speech: Hesitant Language: Perseveration Fund of Knowledge: Inadequate Attention and Concentration: Easily Distracted Memory: Impaired Mood: Sad, Anxious Affect: Other (increased range and intensity) Thought Process & Associations: Loose associations Thought Content: Hallucinations, Delusional Hallucination Type: Auditory Delusion Type: Paranoid Suicidal Ideation: Yes Suicidal Plan: No Suicidal Intention: No Homicidal Ideation: No Homicidal Plan: No Homicidal Intention: No Insight: Poor Judgment: Impulsive Results Labs Test 08/15/17 11:13 White Blood Count 6.5 TH/MM3 Red Blood Count 4.36 MIL/MM3 Hemoglobin 12.5 GM/DL Hematocrit 38.2 % Mean Corpuscular Volume 87.7 FL Mean Corpuscular Hemoglobin 28.7 PG Mean Corpuscular Hemoglobin Concent 32.8 % Red Cell Distribution Width 13.3 % Platelet Count 284 TH/MM3 Mean Platelet Volume 8.0 FL Neutrophils (%) (Auto) 62.8 % Lymphocytes (%) (Auto) 24.3 % Monocytes (%) (Auto) 8.8 % Eosinophils (%) (Auto) 3.6 % Basophils (%) (Auto) 0.5 % Neutrophils # (Auto) 4.1 TH/MM3 Lymphocytes # (Auto) 1.6 TH/MM3 Monocytes # (Auto) 0.6 TH/MM3 Eosinophils # (Auto) 0.2 TH/MM3 Basophils # (Auto) 0.0 TH/MM3 CBC Comment DIFF FINAL Differential Comment Blood Urea Nitrogen 5 MG/DL Creatinine 0.75 MG/DL Random Glucose 105 MG/DL Total Protein 6.9 GM/DL Albumin 3.4 GM/DL Calcium Level 8.7 MG/DL Alkaline Phosphatase 74 U/L Aspartate Amino Transf (AST/SGOT) 8 U/L Alanine Aminotransferase (ALT/SGPT) 11 U/L Total Bilirubin 0.4 MG/DL Sodium Level 141 MEQ/L Potassium Level 3.7 MEQ/L Chloride Level 109 MEQ/L Carbon Dioxide Level 26.4 MEQ/L Anion Gap 6 MEQ/L Estimat Glomerular Filtration Rate 117 ML/MIN Hemoglobin A1c 4.7 % Triglycerides Level 58 MG/DL Cholesterol Level 157 MG/DL LDL Cholesterol 104 MG/DL HDL Cholesterol 41.9 MG/DL Cholesterol/HDL Ratio 3.74 RATIO Vitamin B12 Level 884 PG/ML 25-Hydroxy Vitamin D Total 13.7 ng/ML Thyroid Stimulating Hormone 3rd Gen 1.380 uIU/ML Vitals/IOs Vital Signs Date Time Temp Pulse Resp B/P (MAP) Pulse Ox O2 Delivery O2 Flow Rate FiO2 08/15/17 06:15 98.2 81 18 105/60 (75) 100 08/13/17 15:03 Room Air Assessment & Plan Problem List: (1) Schizophrenia, paranoid type ICD Codes: F20.0 - Paranoid schizophrenia Status: Acute Assessment & Plan Estimated LOS: days patient continue psychotic intrusive, with no insight. See medication adjustment above Justification for Cont. Inpt. At this time patient would decompensated placed on lower level of care Discharge Planning Placement may become somewhat problematic perhaps return with family Request HC Surrog/Guard Advoc?: Yes Sarbjit Champagne MD Aug 15, 2017 14:22
--- NOTE | 2017-08-15 15:44 | HHI.PR ---
Subjective Remarks Follow-up visit of 21-year-old female with a PMH of schizophrenia, and bipolar disorder. Patient seen and examined, she is more calm and not crying. Asked if she remembers why she is on medication for TB and repots that she still does not know. She denies chest pain, SOB, nausea, vomiting, diarrhea, fever, chills , night sweats, or cough. Objective Vitals Vital Signs Date Time Temp Pulse Resp B/P (MAP) Pulse Ox O2 Delivery O2 Flow Rate FiO2 08/15/17 06:15 98.2 81 18 105/60 (75) 100 08/14/17 18:31 98.6 110 16 116/84 (95) 99 Result Diagram: 08/15/17 1113 08/15/17 1113 Objective Remarks GENERAL: This is a well-nourished, well-developed patient, in no distress. SKIN: No rashes, ecchymoses or lesions. Cool and dry. HEAD: Atraumatic. Normocephalic. EYES: Pupils equal round and reactive. ENT: Nose without bleeding Airway patent. NECK: Trachea midline. CARDIOVASCULAR: Regular rate and rhythm without murmurs, gallops, or rubs. RESPIRATORY: Clear to auscultation. Breath sounds equal bilaterally. No wheezes , rales, or rhonchi. GASTROINTESTINAL: Abdomen soft, non-tender, nondistended. MUSCULOSKELETAL: Extremities without clubbing, cyanosis, or edema. No joint tenderness, effusion, or edema noted. NEUROLOGICAL: Awake and alert. Motor and sensory grossly within normal limits. Five out of 5 muscle strength in all muscle groups. Normal speech. PSYCH: Calm and cooperative answering questions. A/P Problem List: (1) Schizophrenia, paranoid type ICD Code: F20.0 - Paranoid schizophrenia Status: Acute Assessment and Plan 21-year-old female with a PMH of schizophrenia, and bipolar disorder. Emergency department documentation reviewed, patient brought into ED with complaints of hallucinations. ?Tuberculosis prophylaxis with Isoniazid - Currently on Isoniazid, patient is still not aware why - Nurse has placed a call and left message for mother to call back. Nurse will also try and contact [facility] Department. Schizophrenia/bipolar disorder with auditory hallucinations - Managed by psych with use of Seroquel, Trazodone, [place], PRN Ativan and Atarax - Continue management by psych Tobacco use - Continue nicotine patch VTE - Ambulating on her own Patient discussed with Pedro Silvestre Aug 15, 2017 15:44
[2017-08-15 18:59] VITALS: BP 113/73; PULSE 98; RESP 20; TEMP 98.9; O2SAT 99
[2017-08-15] MEDS: QUEtiapine FUMARATE 200 MG TAB PO SCH (21:00)
[2017-08-15] MEDS: LORazepam 1 MG TAB PO PRN (23:40)
[2017-08-16 05:59] VITALS: BP 104/62; PULSE 80; RESP 16; TEMP 98; O2SAT 99
[2017-08-16] MEDS: ISONIAZID 300 MG TAB PO SCH (08:53)
[2017-08-16] MEDS: LITHIUM CARBONATE 300 MG CAP PO SCH ×3 (08:53→16:45)
[2017-08-16] MEDS: REMOVE OLD NICOTINE PATCH T-DERMAL SCH (08:55)
[2017-08-16] MEDS: NICOTINE 21 MG/24 HR PATCH T-DERMAL SCH (08:55)
[2017-08-16] MEDS ORDERED: QUEtiapine FUMARATE 100 MG TAB PO SCH (09:00)
[2017-08-16] MEDS ORDERED: OLANZapine IM 10 MG VIAL IM STA (11:46)
[2017-08-16] MEDS ORDERED: LORazepam 2 MG/ML VIAL IM STA (11:46)
[2017-08-16] MEDS ORDERED: diphenhydrAMINE HCL 50 MG/ML VIAL IM STA (11:46)
[2017-08-16] MEDS ORDERED: diphenhydrAMINE HCL 50 MG/ML VIAL ONE (11:50)
[2017-08-16] MEDS ORDERED: OLANZapine IM 10 MG VIAL IM ONE (11:50)
--- NOTE | 2017-08-16 11:56 | HHI.PYPN ---
Subjective Remarks Patient seen in day room with nurse Gary, chart review, patient showing mixed compliance medication. Patient loud angry demanding verbally threatening towards other patients and staff. When asked to lower her voice because she was being disruptive she became louder more paranoid and angry showing no insight. It is felt by the treatment team and myself that the situation was getting out of control and necessitated when necessary medication. Patient was given Zyprexa 10 mg Ativan 1 mg and Benadryl 25 mg all IM injection 2700 unit for a time out. Review of Systems Except as stated in HPI: all other systems reviewed are Neg Mental Status Examination Appearance: Disheveled Consciousness: Alert Orientation: x4 Motor Activity: Abnormal gait Speech: Hesitant Language: Perseveration Fund of Knowledge: Inadequate Attention and Concentration: Easily Distracted Memory: Impaired Mood: Angry, Sad, Anxious, Irritable Affect: Other (increased range and intensity) Thought Process & Associations: Loose associations Thought Content: Hallucinations, Delusional Hallucination Type: Auditory Delusion Type: Paranoid Suicidal Ideation: Yes Suicidal Plan: No Suicidal Intention: No Homicidal Ideation: No Homicidal Plan: No Homicidal Intention: No Insight: Poor Judgment: Impulsive Results Vitals/IOs Vital Signs Date Time Temp Pulse Resp B/P (MAP) Pulse Ox O2 Delivery O2 Flow Rate FiO2 08/16/17 05:59 98.0 80 16 104/62 (76) 99 08/13/17 15:03 Room Air Assessment & Plan Problem List: (1) Schizophrenia, paranoid type ICD Codes: F20.0 - Paranoid schizophrenia Status: Acute Assessment & Plan Estimated LOS: days patient psychotic paranoid angry irritable and threatening. Necessitating the giving of Zyprexa 10 mg Ativan 1 mg Benadryl 25 mg IM. And patient being brought 2700 unit for a time out Justification for Cont. Inpt. At this time patient decompensate who placed in a lower level of care Discharge Planning Need to coordinate with mother about placement issues Request HC Surrog/Guard Advoc?: Yes Sarbjit Champagne MD Aug 16, 2017 11:56
--- NOTE | 2017-08-16 14:08 | PD.TTN ---
Patient Problems 1. Discharge planning 2. Medication compliance 3. Knowledge deficit 4. Lack of coping skills Progress Toward Goals Provider Present: Dr. Candelario Champagne Provider Input: 08/15/17 Dr. Champagne's treatment team met to discuss treatment plan, medication, and discharge plan. Patient has poor boundaries, no insight. Patient's medication will be increased. Nurse(s) Input: 08/15/17 Patient's nurse Bev reports patient is seclusive to room. Lies in bed with covers over her head. Compliant with medication and labs. No verbal interaction with this publicity writer Psychiatric Counselors Present: MYRA YunMio Psych Therapist Input: 08/15/17 Patient presents childlike, intrusive, seclusive, affect blunted. Patient continues to present delusional. Patient is medication compliant, no insight into her situation. Group Spec/RT/OT/PRYOR Present: ROYA Zuluaga Group Spec/RT/OT/PRYOR Input: Attends most groups. Particpiates independently and appropriately Christian[facility] Lew [facility] Aug 16, 2017 14:08
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
[2017-08-17 06:09] VITALS: BP 97/56; PULSE 76; RESP 18; TEMP 98.3; O2SAT 97
[2017-08-17] MEDS: LITHIUM CARBONATE 300 MG CAP PO SCH ×3 (08:39→17:18)
--- NOTE | 2017-08-17 13:00 | HHI.PYPN ---
Subjective Remarks Patient seen in her room with nurse Alyse, patient continues no insight into her behaviors. Now wishes Robaxin 2600. I responded by stating she needs some consistent behavior prior to return to that unit. Patient has been compliant with her lithium. Though indeed mother's permission for further medication. I will write for Rickie by mouth and or IM to be given only with permission of health care surrogate Review of Systems Except as stated in HPI: all other systems reviewed are Neg Mental Status Examination Appearance: Disheveled Consciousness: Alert Orientation: x4 Motor Activity: Abnormal gait Speech: Hesitant Language: Perseveration Fund of Knowledge: Inadequate Attention and Concentration: Easily Distracted Memory: Impaired Mood: Angry, Sad, Anxious, Irritable Affect: Other (increased range and intensity) Thought Process & Associations: Loose associations Thought Content: Hallucinations, Delusional Hallucination Type: Auditory Delusion Type: Paranoid Suicidal Ideation: Yes Suicidal Plan: No Suicidal Intention: No Homicidal Ideation: No Homicidal Plan: No Homicidal Intention: No Insight: Poor Judgment: Impulsive Results Vitals/IOs Vital Signs Date Time Temp Pulse Resp B/P (MAP) Pulse Ox O2 Delivery O2 Flow Rate FiO2 08/17/17 06:09 98.3 76 18 97/56 (70) 97 08/13/17 15:03 Room Air Assessment & Plan Problem List: (1) Schizophrenia, paranoid type ICD Codes: F20.0 - Paranoid schizophrenia Status: Acute Assessment & Plan Estimated LOS: days patient continues psychotic paranoid with no insight. We' ll continue to attempt to get mother's permission to bed Rickie patient's medication regimen Justification for Cont. Inpt. At this time patient will decompensate if placed in the lower level of care Discharge Planning The need to her family related to placement issues Request HC Surrog/Guard Advoc?: Yes Sarbjit Champagne MD Aug 17, 2017 13:00
[2017-08-17] MEDS: ZIPRASIDONE HCL 40 MG CAP PO SCH (17:17)
[2017-08-17] MEDS: ZIPRASIDONE MESYLATE 20 MG VIAL IM SCH (17:18)
[2017-08-17 17:29] VITALS: BP 102/55; PULSE 96; RESP 18; TEMP 98.8; O2SAT 98
[2017-08-18 06:40] VITALS: BP 118/80; PULSE 110; RESP 18; TEMP 98.3; O2SAT 99
[2017-08-18] MEDS: LITHIUM CARBONATE 300 MG CAP PO SCH ×3 (08:24→16:38)
[2017-08-18] MEDS: ZIPRASIDONE HCL 40 MG CAP PO SCH ×2 (08:24→16:38)
[2017-08-18] MEDS: ZIPRASIDONE MESYLATE 20 MG VIAL IM SCH ×2 (09:00→16:52)
--- NOTE | 2017-08-18 14:16 | HHI.PYPN ---
Subjective Remarks Patient was seen and case discussed with nursing. Patient remains floridly psychotic. She is labile, tearful during the interview. Patient is crying because she believes her is being stolen by somebody else. She later admits that she is not and that is her future . She is upset that not everybody can have special head. Tolerating her medications well, no ETO's were needed. Mental Status Examination Appearance: Disheveled Consciousness: Alert Orientation: x4 Motor Activity: Abnormal gait Speech: Hesitant Language: Perseveration Fund of Knowledge: Inadequate Attention and Concentration: Easily Distracted Memory: Impaired Mood: Angry, Sad, Anxious, Irritable Affect: Other (increased range and intensity) Thought Process & Associations: Loose associations Thought Content: Hallucinations, Delusional Hallucination Type: Auditory Delusion Type: Bizarre, Paranoid Suicidal Ideation: Yes (nonspecific) Suicidal Plan: No Suicidal Intention: No Homicidal Ideation: No Homicidal Plan: No Homicidal Intention: No Insight: Poor Judgment: Impulsive Results Vitals/IOs Vital Signs Date Time Temp Pulse Resp B/P (MAP) Pulse Ox O2 Delivery O2 Flow Rate FiO2 08/18/17 06:40 98.3 110 18 118/80 (93) 99 Assessment & Plan Problem List: (1) Schizophrenia, paranoid type ICD Codes: F20.0 - Paranoid schizophrenia Status: Acute Assessment & Plan Continue current treatment plan Justification for Cont. Inpt. Patient would decompensate in a less restrictive setting Request HC Surrog/Guard Advoc?: Yes Nelson Walters DO Aug 18, 2017 14:16
[2017-08-18 17:37] VITALS: BP 136/71; PULSE 116; RESP 16; TEMP 98.6; O2SAT 100
[2017-08-18] MEDS: LORazepam 1 MG TAB PO PRN (21:36)
[2017-08-19 05:42] VITALS: BP 112/77; PULSE 97; RESP 19; TEMP 98; O2SAT 96
[2017-08-19] MEDS: ZIPRASIDONE HCL 40 MG CAP PO SCH ×2 (08:32→17:08)
[2017-08-19] MEDS: LITHIUM CARBONATE 300 MG CAP PO SCH ×3 (08:32→17:08)
[2017-08-19] MEDS: ZIPRASIDONE MESYLATE 20 MG VIAL IM SCH ×2 (09:00→17:08)
--- NOTE | 2017-08-19 12:27 | HHI.PYPN ---
Subjective Remarks Patient was seen and case discussed with nursing. Patient appears less labile today however she is a bit more irritable. She refuses the interview initially because he interrupted her speech. She admits to auditory hallucinations but they're "good voices, I like them, they loved me." Behaving good on the unit. Compliant with medications Mental Status Examination Appearance: Disheveled Consciousness: Alert Orientation: x4 Motor Activity: Abnormal gait Speech: Hesitant Language: Perseveration Fund of Knowledge: Inadequate Attention and Concentration: Easily Distracted Memory: Impaired Mood: Angry, Sad, Anxious, Irritable Affect: Other (increased range and intensity) Thought Process & Associations: Loose associations Thought Content: Hallucinations, Delusional Hallucination Type: Auditory ("good voices.") Delusion Type: Bizarre, Paranoid Suicidal Ideation: Yes (nonspecific) Suicidal Plan: No Suicidal Intention: No Homicidal Ideation: No Homicidal Plan: No Homicidal Intention: No Insight: Poor Judgment: Impulsive Results Vitals/IOs Vital Signs Date Time Temp Pulse Resp B/P (MAP) Pulse Ox O2 Delivery O2 Flow Rate FiO2 08/19/17 05:42 98.0 97 19 112/77 (89) 96 Assessment & Plan Problem List: (1) Schizophrenia, paranoid type ICD Codes: F20.0 - Paranoid schizophrenia Status: Acute Assessment & Plan Continue current treatment plan Justification for Cont. Inpt. Patient would decompensate in a less restrictive setting Request HC Surrog/Guard Advoc?: Yes Nelson Walters DO Aug 19, 2017 12:27
[2017-08-20 05:36] VITALS: BP 115/68; PULSE 91; RESP 16; TEMP 98.3; O2SAT 100
[2017-08-20 06:25] VITALS: BP 115/68; PULSE 91; RESP 16; TEMP 98.3; O2SAT 100
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
[2017-08-20] MEDS: ZIPRASIDONE MESYLATE 20 MG VIAL IM SCH ×2 (09:00→17:30)
[2017-08-20] MEDS: ZIPRASIDONE HCL 60 MG CAP PO SCH ×2 (09:20→17:21)
[2017-08-20] MEDS: LITHIUM CARBONATE 300 MG CAP PO SCH ×3 (09:20→17:21)
[2017-08-20] MEDS: LORazepam 1 MG TAB PO PRN (21:37)
[2017-08-20] MEDS: traZODone HCL 50 MG TAB PO PRN (21:37)
[2017-08-21 05:59] VITALS: BP 129/77; PULSE 97; RESP 16; TEMP 97.3
[2017-08-21] MEDS: ZIPRASIDONE MESYLATE 20 MG VIAL IM SCH ×2 (09:00→17:15)
[2017-08-21] MEDS: ZIPRASIDONE HCL 60 MG CAP PO SCH ×2 (09:00→17:15)
[2017-08-21] MEDS: LITHIUM CARBONATE 300 MG CAP PO SCH ×3 (09:08→17:15)
--- NOTE | 2017-08-21 10:06 | HHI.PYPN ---
Subjective Remarks Patient seen in [place] with nurse mildly, chart review, patient compliant medications. Patient continues intrusive somewhat blunted affect very intense eye contact. Is also thought blocking noted with her responses. Patient showing little insight into her issues states she feels fine and just wishes to go home today. This time patient remains quite psychotic intrusive with no insight. Patient's Geodon was just increased yesterday will observe with that medication adjustment today Review of Systems Except as stated in HPI: all other systems reviewed are Neg Mental Status Examination Appearance: Disheveled Consciousness: Alert Orientation: x4 Motor Activity: Other (no motor abnormalities noted) Speech: Hesitant Language: Perseveration Fund of Knowledge: Inadequate Attention and Concentration: Easily Distracted Memory: Impaired Mood: Sad, Anxious Affect: Blunt (occasionally tearful) Thought Process & Associations: Loose associations Thought Content: Hallucinations, Thought blocking, Delusional Hallucination Type: Auditory (appears internally preoccupied) Delusion Type: Bizarre, Paranoid Suicidal Ideation: No Suicidal Plan: No Suicidal Intention: No Homicidal Ideation: No Homicidal Plan: No Homicidal Intention: No Insight: Poor Judgment: Impulsive Results Vitals/IOs Vital Signs Date Time Temp Pulse Resp B/P (MAP) Pulse Ox O2 Delivery O2 Flow Rate FiO2 08/21/17 05:59 97.3 97 16 129/77 (94) 08/20/17 06:25 100 Assessment & Plan Problem List: (1) Schizophrenia, paranoid type ICD Codes: F20.0 - Paranoid schizophrenia Status: Acute Assessment & Plan Estimated LOS: days patient continue psychotic intrusive with little insight. Compliant medications. Patient scheduled for [facility] tomorrow. Justification for Cont. Inpt. This time patient will decompensate if placed on lower level of care Discharge Planning Consider possible return home Request HC Surrog/Guard Advoc?: Yes Sarbjit Champagne MD Aug 21, 2017 10:06
--- NOTE | 2017-08-21 10:09 | PD.TTN ---
Patient Problems 1. Discharge planning 2. Medication compliance 3. Knowledge deficit 4. Lack of coping skills Progress Toward Goals Provider Present: Dr. Candelario Champagne Provider Input: 08/15/17 Dr. Champagne's treatment team met to discuss treatment plan, medication, and discharge plan. Patient has poor boundaries, no insight. Patient's medication will be increased. 08/21- Pt remains psychotic and symptomatic thus her medication regiment will be increased. Nurse(s) Input: 08/15/17 Patient's nurse Bev reports patient is seclusive to room. Lies in bed with covers over her head. Compliant with medication and labs. No verbal interaction with this creative services writer 08/21- Rosa Isela Saldana RN Pt has a fixed delusion related to her brother, has expressed that she would take a pill to sleep and stay asleep, that she is withdrawn, was refusing breakfast today and has been no behavioral issues. Psychiatric Counselors Present: Christian[facility] Lew [facility] Input: 08/15/17 Patient presents childlike, intrusive, seclusive, affect blunted. Patient continues to present delusional. Patient is medication compliant, no insight into her situation. 08/21- Pt remains delusional, labile, childlike, withdrawn and cooperative. She has been taking her medication and been appropriate on unit. Insight and judgment remains poor into condition and need for care. She appears to be utilizing some level of coping and emotional regulation skills as she has had no outbursts but continues to appear easily emotionally overwhelmed. She will return home after her discharge. Group Spec/RT/OT/PRYOR Present: ROYA Zuluaga Group Spec/RT/OT/PRYOR Input: Attends most groups. Particpiates independently and appropriately 08/21- ROYA Zuluaga Pt does not attend groups and is seclusive to her room. Discharge Plan [facility] Pt will be discharged home to her family where she was living and will continue to follow up with outpatient psychiatric provider. Documentation Scribe: Mitchell Rdz Mitchell Matute Aug 21, 2017 10:09
--- NOTE | 2017-08-21 17:29 | EKG ---
Date Performed: 08/20/2017 Time Performed: 14:14:50 PTAGE: 21 years EKG: SINUS TACHYCARDIA Since previous tracing, no significant change noted ABNORMAL RHYTHM ECG PREVIOUS TRACING : 08/14/2017 13.22 DOCTOR: Alexandria Andrade Interpretating Date/Time 08/21/2017 17:28:53
[2017-08-21] MEDS: traZODone HCL 50 MG TAB PO PRN (20:54)
[2017-08-21] MEDS: LORazepam 1 MG TAB PO PRN (20:54)
[2017-08-22 05:38] VITALS: BP 124/87; RESP 18; TEMP 97.8; O2SAT 99
[2017-08-22 05:44] VITALS: PULSE 76
[2017-08-22] MEDS: ZIPRASIDONE MESYLATE 20 MG VIAL IM SCH ×2 (08:35→17:17)
[2017-08-22] MEDS: LITHIUM CARBONATE 300 MG CAP PO SCH ×3 (08:36→17:17)
[2017-08-22] MEDS: ZIPRASIDONE HCL 60 MG CAP PO SCH ×2 (08:36→17:17)
--- NOTE | 2017-08-22 11:23 | HHI.PYPN ---
Subjective Remarks Patient seen today in [place] court, patient's case continued by Joce Bond for one week. Patient's chart review, compliant medications, patient somewhat calmer today did well testifying in court stated she wished return home with her family. Family has been called it appears patient's mother is willing to have patient come home tomorrow. If all goes well and patient patient continues to improve we'll consider discharge tomorrow Review of Systems Except as stated in HPI: all other systems reviewed are Neg Mental Status Examination Appearance: Disheveled Consciousness: Alert Orientation: x4 Motor Activity: Normal gait, Other (no motor abnormalities noted) Speech: Unremarkable, Hesitant (improved) Language: Adequate Fund of Knowledge: Adequate Attention and Concentration: Easily Distracted (improved) Memory: Impaired (improved) Mood: Sad (improved), Anxious (improved) Affect: Other (slight increase range and intensity) Thought Process & Associations: Loose associations Thought Content: Appropriate, Delusional Hallucination Type: Auditory (diminished) Delusion Type: Paranoid Suicidal Ideation: No Suicidal Plan: No Suicidal Intention: No Homicidal Ideation: No Homicidal Plan: No Homicidal Intention: No Insight: Fair Judgment: Impulsive Results Vitals/IOs Vital Signs Date Time Temp Pulse Resp B/P (MAP) Pulse Ox O2 Delivery O2 Flow Rate FiO2 08/22/17 05:44 76 08/22/17 05:38 97.8 18 124/87 (99) 99 Assessment & Plan Problem List: (1) Schizophrenia, paranoid type ICD Codes: F20.0 - Paranoid schizophrenia Status: Acute Assessment & Plan Estimated LOS: days patient was retained by [facility] 1 week. This parenchymal medication patient's mother. It appears the mother is ready for the patient come home tomorrow will consider discharge tomorrow patient continues to do well Justification for Cont. Inpt. It appears mother is willing to have patient component tomorrow. Continue to observe for her stability overnight Discharge Planning Return home with family Request HC Surrog/Guard Advoc?: Yes Sarbjit Champagne MD Aug 22, 2017 11:23
[2017-08-22] MEDS ORDERED: QUET1TAB8 PO (12:27)
[2017-08-22] MEDS ORDERED: LITH300C2 PO (12:27)
[2017-08-22] MEDS ORDERED: GEOD60CA PO (12:27)
[2017-08-22] MEDS ORDERED: SERO400T PO (12:27)
--- NOTE | 2017-08-22 12:33 | HHI.DS ---
Psychiatry Discharge Summary Inpatient Psychiatric care?: Yes Advance Directive: No Reason Not Provided: education provided Mental Health AdvanceDirective: No Health Care Proxy: No Admission Admission Date Aug 13, 2017 at 14:34 Admission Diagnosis: (1) Schizophrenia, paranoid type ICD Code: F20.0 - Paranoid schizophrenia Brief History 21-year-old female presents voluntarily with auditory hallucinations, paranoid delusions, suicidal ideation and inappropriate behavior. Apparently the patient has repeatedly been disrobing and walking around naked, both inside her home and outside of her home. She is reporting auditory hallucinations which do not stop and are critical of her as well as intermittently telling her to kill herself. Patient does have suicidal ideation. She does not currently have a plan. However she is also demonstrating thought blocking and looseness of associations. She appears to be responding to internal stimuli. She apparently threw her cell phone away as she came into the emergency department. She feels her mother is trying to control her or punish her and she does not want her mother to know what's going on. Tobacco Use In Past 30 Days: No Tobacco Past 30 Days Alcohol Use: Never Hospital Course Patient's initial behavior exhibited her psychosis mood lability and irritability and manipulativeness. However and she showed increase compliance with the medication the paranoia mood lability diminished, response to internal stimuli diminished, compliant with medication improved. Patient was able contact with us to do no harm, was able contracted goes to be compliant with the medications. Follow rules at home with her mother. And follow-up with mental health care. Patient's mother call today Suches whenever daughter come home like to fish bait picker early tomorrow morning. Thus patient be discharged early tomorrow morning to her mother with Rx 1 month follow-up [facility] act. Results Blood Pressure 124 / 87 Vital Signs Date Time Temp Pulse Resp B/P (MAP) Pulse Ox O2 Delivery O2 Flow Rate FiO2 08/22/17 05:44 76 08/22/17 05:38 97.8 18 124/87 (99) 99 Laboratory Results Test 08/13/17 12:18 08/15/17 11:13 [place] Level 0.6 MEQ/L (0.5-1.5) Cholesterol Level 157 MG/DL (120-200) HDL Cholesterol 41.9 MG/DL (40.0-60.0) Hemoglobin A1c 4.7 % (4.3-6.0) LDL Cholesterol 104 MG/DL (0-99) Triglycerides Level 58 MG/DL (42-150) Summary of Procedures None done Pending results at discharge: No Medications # of Antipsychotic meds at D/C: 1 Approp Antipsych med options 1 - Minimum of three failed multiple trials of monotherapy. 2 - Documented plan to taper to monotherapy due to previous use of multiple meds OR cross-taper in progress at D/C. 3 - Documentation of augmentation of Clozapine. 4 - Justification other than those listed in allowable values 1-3, document here : Discharge Discharge Date: Aug 23, 2017 Discharge Diagnosis: (1) Schizophrenia, paranoid type Diagnosis: Principal ICD Code: F20.0 - Paranoid schizophrenia Status: Acute Pt Condition on Discharge: Stable Discharge Disposition: Discharge Home Discharge Instructions Diet Instructions: As Tolerated, No Restrictions Activities you can perform: Regular-No Restrictions Scheduled Appointment: Kike Hamilton Discharge Time > 30 minutes Mental Status Examination Appearance: Disheveled Consciousness: Alert Orientation: x4 Motor Activity: Normal gait, Other (no motor abnormalities noted) Speech: Unremarkable, Hesitant (improved) Language: Adequate Fund of Knowledge: Adequate Attention and Concentration: Easily Distracted (improved) Memory: Impaired (improved) Mood: Sad (improved), Anxious (improved) Affect: Other (slight increase range and intensity) Thought Process & Associations: Loose associations Thought Content: Appropriate, Delusional Hallucination Type: Auditory (diminished) Delusion Type: Paranoid Suicidal Ideation: No Suicidal Plan: No Suicidal Intention: No Homicidal Ideation: No Homicidal Plan: No Homicidal Intention: No Insight: Fair Judgment: Impulsive Discharge/Advance Care Plan Health Problems: (1) Schizophrenia, paranoid type Goals to promote your health * To prevent worsening of your condition and complications * To maintain your health at the optimal level Directions to meet your goals Take your medications as prescribed Follow your dietary instruction Follow activity as directed Keep your appointments as scheduled Take your immunizations and boosters as scheduled If your symptoms worsen call your PCP, if no PCP go to Urgent Care Center or Emergency Room For 24/ questions related to your inpatient stay or results of tests pending at discharge, please contact Dr. Sarbjit Champagne at Smoking is Dangerous to Your Health. Avoid second hand smoking Sarbjit Champagne MD Aug 22, 2017 12:33
[2017-08-22 16:29] VITALS: BP 116/85; PULSE 115; RESP 18; TEMP 98.5; O2SAT 100
[2017-08-23] MEDS: traZODone HCL 50 MG TAB PO PRN (01:10)
[2017-08-23 05:58] VITALS: BP 126/95; PULSE 122; RESP 18; TEMP 97.3; O2SAT 96
== END 2017-08-23 08:35 | disposition home or self-care (01) | DRG 885 ==
LOC: NEPJ 10:39 → NEDA 14:34 → H260 16:08 → H270 08-16 16:27
PROVIDERS: ADMIT Psychiatry & Neurology Psychiatry; ATTEND Psychiatry & Neurology Psychiatry
DX: F20.0 Paranoid schizophrenia (principal); R45.851 Suicidal ideations
CPT/HCPCS: 80053; 80061; 80178; 80307; 81001; 82306; 82607; 83036; 84443; 84703; 85025; 93005; 99285; J1200; J2060

== ENCOUNTER 2017-11-30 00:34 | Emergency (ER) | payer OTHER ==
[~2017-11-30 00:34] MED LIST changes: +GEOD60CA PO; -HALO10TA PO; -HALO5TAB PO; -PALI156P IM; +QUET1TAB8 PO
== END 2017-11-30 01:00 | disposition left against medical advice (07) ==
LOC: NED 00:34
DX: Z00.8 Encounter for other general examination (principal); Z53.21 Procedure and treatment not carried out due to patient leaving prior to being seen by health care provider
CPT/HCPCS: 99281

== ENCOUNTER 2017-12-01 10:15 | Emergency (ER) | payer OTHER | END 2017-12-01 10:20 | disposition left against medical advice (07) | LOC: NED 10:15 | DX: Z00.8 Encounter for other general examination (principal); Z53.21 Procedure and treatment not carried out due to patient leaving prior to being seen by health care provider | CPT/HCPCS: 99281 ==